=== PATIENT | male | born 1935 | race Caucasian/White ===

== ENCOUNTER 2017-02-27 12:00 | Inpatient (IN) | payer MEDICARE ==
[~2017-02-27] VITALS: Ht 177.8 cm; Wt 50.0 kg
[2017-02-27 12:45] LABS: BASO # 0.2 x10^3/uL (0.0-0.2); BASO % 1 % (0-3); EOS # 0.1 x10^3/uL (0.0-0.7); EOS % 1 % (0-3); HEMATOCRIT 38.1 % (39.0-53.0); HEMOGLOBIN 12.5 g/dL (13.0-17.5); LYMPH # 1.6 x10^3/uL (1.0-4.8); LYMPH % 9 % (24-48); MEAN CORPUSCULAR HEMOGLOBIN 29 pg (25-35); MEAN CORPUSCULAR HGB CONC 33 g/dL (31-37); MEAN CORPUSCULAR VOLUME 89 fL (79-100); MONO # 1.3 x10^3/uL (0.0-1.1); MONO % 8 % (0-9); NEUT # 14.6 x10^3uL (1.8-7.7); NEUT % 82 % (31-73); PLATELET COUNT 248 x10^3/uL (140-400); RED CELL DISTRIBUTION WIDTH 14.7 % (11.5-14.5); WHITE BLOOD COUNT 17.9 x10^3/uL (4.0-11.0)
[2017-02-27 12:56] LABS: ALBUMIN 3.2 g/dL (3.4-5.0); ALBUMIN/GLOBULIN RATIO 0.7 (1.0-1.7); CALCIUM 9.7 mg/dL (8.5-10.1); CREATININE 1.3 mg/dL (0.7-1.3); GFR 52.7; MAGNESIUM 2.2 mg/dL (1.8-2.4); POTASSIUM 4.9 mmol/L (3.5-5.1); TOTAL BILIRUBIN 0.8 mg/dL (0.2-1.0); TOTAL PROTEIN 7.7 g/dL (6.4-8.2)
[2017-02-27 13:04] LABS: BILIRUBIN,URINE NEG (NEG); CLARITY,URINE CLEAR; COLOR,URINE AMBER; GLUCOSE,URINE NEG (NEG)
[2017-02-27 13:05] LABS: BACTERIA,URINE FEW /HPF (0-FEW); HYALINE CASTS, URINE OCC /HPF; NITRITE,URINE NEG (NEG); SQUAMOUS EPITHELIAL CELL,UR FEW /LPF; UROBILINOGEN,URINE 0.2 mg/dL (0.2 mg/dL); WBC,URINE OCC /HPF (0-4)
--- NOTE | 2017-02-27 13:06 | RAD ---
Occasional cough. A single view of the chest was obtained. No prior imaging is available. There are probable background changes of fibrosis. There are changes at the left lung apex likely reflecting pleural-parenchymal scarring. There is a suspect nodule additionally noted in the left upper lobe. Comparison with any old films establishing stability advised. An acute parenchymal infiltrate is not seen. Significant pleural fluid is not present. There is no pneumothorax. There is a probable hiatus hernia. IMPRESSION: Chronic changes. No definite acute finding. Suspect nodule in the left lung. Comparison with old films is advised. Probable hiatus hernia
--- NOTE | 2017-02-27 13:22 | EKG ---
[address] [address] Test Date: 2017-02-27 Test Time: 13:10:57 Pat Name: NIK BERRY Department: Room: Gender: M Guest History Clerk: TANISHA : 1935 Requested By: MIGDALIA MIRAMONTES Order Number: [id number] Reading MD: Matias Heart Measurements Intervals [place] Rate: 83 P: 47 NM: 114 QRS: 14 QRSD: 92 T: 26 QT: 388 QTc: 462 Interpretive Statements SINUS RHYTHM QRS(T) CONTOUR ABNORMALITY CONSIDER ANTEROSEPTAL MYOCARDIAL DAMAGE ST & T ABNORMALITY, CONSIDER INFERIOR ISCHEMIA OR LEFT VENTRICULAR STRAIN T ABNORMALITY IN HIGH LATERAL LEADS ABNORMAL ECG RI6.01 No previous ECG available for comparison Electronically Signed On 03-16-2017 12:00:46 CDT by Matias Heart
[2017-02-27 13:41] LABS: % BANDS 3 % (0-9); % EOS 1 % (0-5); % LYMPHS 10 % (24-48); % MONOS 3 % (0-10); % SEGS 82 % (35-66); PLT ESTIMATE ADEQUATE (ADEQUATE)
[2017-02-27 13:43] LABS: POLYCHROMASIA SLIGHT
[2017-02-27 13:44] LABS: TOXIC GRANULATION SLIGHT
--- NOTE | 2017-02-27 14:30 | PHYS DOC ---
Past History Past Medical History: Hypertension Past Surgical History: Other Alcohol Use: None Drug Use: None Adult General Chief Complaint Chief Complaint: MEDICAL CLEARANCE HPI HPI Patient is a 81 year old male who presents for medical clearance for psychiatric admission. The patient comes from home where he lives alone with his . He has history of Alzheimer's dementia with increased agitation, combativeness, concern for elopment from the house. His is concerned that she is not able to keep him safe. He had recent hip fracture treated nonoperatively with rehab admission & has had more difficulty since returning home last week. Has a productive cough since this morning. Denies fevers, chest pain, shortness of breath, abdominal pain, nausea, vomiting, diarrhea, extremity numbness/weakness. Review of Systems Review of Systems Constitutional: Denies fever or chills HENT: Denies nasal congestion or sore throat Respiratory: Reports cough, denies shortness of breath Cardiovascular: Denies chest pain or edema GI: Denies abdominal pain, nausea, vomiting, or diarrhea : Denies dysuria or hematuria Musculoskeletal: Denies back pain or joint pain Integument: Denies rash or skin lesions Neurologic: Denies headache, focal weakness or sensory changes Psychiatric: reports agitation, combative behavior Allergies Allergies Allergies Coded Allergies Type Severity Reaction Last Updated Verified haloperidol Allergy Unknown 02/27/17 Yes Physical Exam Physical Exam Constitutional: Well developed, well nourished, no acute distress, non-toxic appearance. HENT: Normocephalic, atraumatic, bilateral external ears normal, oropharynx moist, nose normal. Eyes: PERRLA, EOMI, conjunctiva normal, no discharge. Neck: supple, no stridor. Cardiovascular: RRR, no murmurs, no edema. Lungs & Thorax: LCTAB, no wheezing, no respiratory distress. Abdomen: soft, nontender, nondistended. Skin: Warm, dry, no erythema, no rash. Back: No tenderness. Extremities: No tenderness, no edema. Neurologic: Alert and oriented to person & place, no focal deficits noted. Psychologic: cooperative Current Patient Data Vital Signs Vital Signs Date Time Temp Pulse Resp B/P (MAP) Pulse Ox O2 Delivery O2 Flow Rate FiO2 02/27/17 12:00 97.4 89 18 97 Room Air Lab Results Laboratory Tests Test 02/27/17 12:30 02/27/17 12:45 White Blood Count 17.9 x10^3/uL (4.0-11.0) H Red Blood Count 4.30 x10^6/uL (4.30-5.70) Hemoglobin 12.5 g/dL (13.0-17.5) L Hematocrit 38.1 % (39.0-53.0) L Mean Corpuscular Volume 89 fL (79-100) Mean Corpuscular Hemoglobin 29 pg (25-35) Mean Corpuscular Hemoglobin Concent 33 g/dL (31-37) Red Cell Distribution Width 14.7 % (11.5-14.5) H Platelet Count 248 x10^3/uL (140-400) Neutrophils (%) (Auto) 82 % (31-73) H Lymphocytes (%) (Auto) 9 % (24-48) L Monocytes (%) (Auto) 8 % (0-9) Eosinophils (%) (Auto) 1 % (0-3) Basophils (%) (Auto) 1 % (0-3) Neutrophils # (Auto) 14.6 x10^3uL (1.8-7.7) H Lymphocytes # (Auto) 1.6 x10^3/uL (1.0-4.8) Monocytes # (Auto) 1.3 x10^3/uL (0.0-1.1) H Eosinophils # (Auto) 0.1 x10^3/uL (0.0-0.7) Basophils # (Auto) 0.2 x10^3/uL (0.0-0.2) Segmented Neutrophils % 82 % (35-66) H Band Neutrophils % 3 % (0-9) Lymphocytes % 10 % (24-48) L Monocytes % 3 % (0-10) Eosinophils % 1 % (0-5) Toxic Granulation Slight Platelet Estimate Adequate (ADEQUATE) Large Platelets Occ Polychromasia Slight Sodium Level 141 mmol/L (136-145) Potassium Level 4.9 mmol/L (3.5-5.1) Chloride Level 105 mmol/L (98-107) Carbon Dioxide Level 28 mmol/L (21-32) Anion Gap 8 (6-14) Blood Urea Nitrogen 27 mg/dL (8-26) H Creatinine 1.3 mg/dL (0.7-1.3) Estimated GFR (Cockcroft-Gault) 52.7 BUN/Creatinine Ratio 21 (6-20) H Glucose Level 103 mg/dL (70-99) H Calcium Level 9.7 mg/dL (8.5-10.1) Magnesium Level 2.2 mg/dL (1.8-2.4) Total Bilirubin 0.8 mg/dL (0.2-1.0) Aspartate Amino Transferase (AST) 26 U/L (15-37) Alanine Aminotransferase (ALT) 28 U/L (16-63) Alkaline Phosphatase 183 U/L (46-116) H Total Protein 7.7 g/dL (6.4-8.2) Albumin 3.2 g/dL (3.4-5.0) L Albumin/Globulin Ratio 0.7 (1.0-1.7) L Urine Collection Type Unknown Urine Color Xena Urine Clarity Clear Urine pH 5.0 Urine Specific [place] 1.025 Urine Protein Trace (NEG-TRACE) Urine Glucose (UA) Neg mg/dL (NEG) Urine Ketones (Stick) 15 mg/dL (NEG) Urine Blood Trace (NEG) Urine Nitrite Neg (NEG) Urine Bilirubin Neg (NEG) Urine Urobilinogen Dipstick 0.2 mg/dL (0.2 mg/dL) Urine Leukocyte Esterase Neg (NEG) Urine RBC 1-2 /HPF (0-2) Urine WBC Occ /HPF (0-4) Urine Squamous Epithelial Cells Few /LPF Urine Bacteria Few /HPF (0-FEW) Urine Hyaline Casts Occ /HPF EKG EKG interprted by me: NSR rate 83, no acute ST/T wave changes, normal intervals, no ectopy.[] Radiology/Procedures Radiology/Procedures [] Course & Med Decision Making Course & Med Decision Making Pertinent Labs and Imaging studies reviewed. (See chart for details) The patient presents for medical clearance for psych admit. No focal findings on exam. CXR negative for infiltrate. WBC elevated at 17.9. Patient has history of chronic leukocytosis per family, has seen ID, apparently they thought partially related to recurrent gout. Consulted with Dr. Cardenas of psychiatry who states okay for patient to be transferred to their unit as long as okay with Dr. Park. I also discussed with her & she felt comfortable following along but okay to go to psych unit. Patient to be transferred to [facility] in stable condition. [] Dragon Disclaimer Dragon Disclaimer This chart was dictated in whole or in part using Voice Recognition software in a busy, high-work load, and often noisy Emergency Department environment. It may contain unintended and wholly unrecognized errors or omissions. Departure Departure: Impression: Primary Impression: Dementia Additional Impression: Leukocytosis Disposition: ADMITTED INPATIENT Condition: STABLE Referrals: JAZMINE JAMES MD (PCP) Problem Qualifiers MIGDALIA MIRAMONTES MD Feb 27, 2017 14:30
--- NOTE | 2017-02-27 15:20 | NUR ---
Patient arrived on unit from ED on stretcher via EMS accompanied by EMS adn ED personnel. He was transferred to bed from stretcher, initial assessment and VS obtained. Patient appears malnourished and disheveled. Attempted to orient to unit but he is oriented to self only. Patient has multiple small (<5mm) skin tears to extremities in various stages of healing. He also has a rash to his groin and buttocks. Calazine cream applied to rash. Patient transferred into wheelchair and assisted to day room. Will monitor for behaviors.
[2017-02-27 16:02] VITALS: BP 139/66
[2017-02-27] MEDS ORDERED: LEVO500T8 PO (16:12)
[2017-02-27] MEDS ORDERED: ASPI-630 PO (16:12)
[2017-02-27] MEDS ORDERED: MELA3TAB2 PO (16:12)
[2017-02-27] MEDS ORDERED: MIRT15TA3 PO (16:12)
[2017-02-27] MEDS ORDERED: PRED-220 PO (16:12)
[2017-02-27] MEDS ORDERED: ACET325T9 PO (16:12)
[2017-02-27] MEDS ORDERED: TRAM50TA PO (16:12)
[2017-02-27] MEDS ORDERED: VITA1TAB19 PO (16:12)
[2017-02-27] MEDS ORDERED: ALLO100T PO (16:12)
[2017-02-27] MEDS ORDERED: OLAN5TAB9 PO (16:12)
[2017-02-27] MEDS ORDERED: MECL25TA3 PO (16:12)
[2017-02-27] MEDS ORDERED: FAMO20TA5 PO (16:12)
[2017-02-27] MEDS ORDERED: HYDR-2867 PO (16:12)
[2017-02-27] MEDS ORDERED: FERR-26 PO (16:12)
[2017-02-27] MEDS ORDERED: IPRA3AMP NEB (16:12)
[2017-02-27] MEDS ORDERED: METHYL SALICYLATE/MENTHOL TOPICAL OINTMENT 29GM TUBE. TP PRN (16:30)
[2017-02-27] MEDS ORDERED: MAG HYDROX/AL HYDROX/SIMETH 30 ML ORAL.SUSP PO PRN (16:30)
[2017-02-27] MEDS ORDERED: MECLIZINE 12.5 MG TABLET. PO PRN (16:45)
--- NOTE | 2017-02-27 17:20 | NUR ---
Patient has grown more agitated since admission and is refusing to eat. Per ASSISTANT PROFESSOR's, he is threatening to throw his tray. He was placed in the hallway. I offered him a boost, he took one sip after much encouragement then tried to throw the boost away, stating that was all he wanted. Patient continued to grow more agitated, transferred him into bed where he curled up into position and calmed down. Will continue to monitor for behaviours.
[2017-02-27] MEDS ORDERED: Influenza vaccine per PROTOCOL. MC ONE (18:15)
[2017-02-27] MEDS: MIRTAZAPINE 15 MG TABLET PO SCH (19:48)
[2017-02-27] MEDS: OLANZapine 5 MG TABLET PO SCH (19:48)
--- NOTE | 2017-02-27 19:55 | PDOC ---
Exam Hector Demential Exam: Hector Note: Please also refer to the separate dictated note~for this date of service dictated separately.~Patient seen individually. Discussed the patient with Nursing staff reviewed the chart.~Reviewed interim history and current functioning. Reviewed vital signs,~Labs/ Radiology~and current medications noted below. Continue current treatment with the changes noted in the dictated addendum note Assessment: Vital Signs: Vital Signs Date Time Temp Pulse Resp B/P (MAP) Pulse Ox O2 Delivery O2 Flow Rate FiO2 02/27/17 16:02 98.8 92 20 139/66 (90) 94 02/27/17 14:49 Room Air I&O Intake and Output 02/28/17 06:59 Intake Total 0 ml Balance 0 ml Intake Oral 0 ml Labs: Laboratory Tests Test 02/27/17 12:30 02/27/17 12:45 White Blood Count 17.9 x10^3/uL (4.0-11.0) H Red Blood Count 4.30 x10^6/uL (4.30-5.70) Hemoglobin 12.5 g/dL (13.0-17.5) L Hematocrit 38.1 % (39.0-53.0) L Mean Corpuscular Volume 89 fL (79-100) Mean Corpuscular Hemoglobin 29 pg (25-35) Mean Corpuscular Hemoglobin Concent 33 g/dL (31-37) Red Cell Distribution Width 14.7 % (11.5-14.5) H Platelet Count 248 x10^3/uL (140-400) Neutrophils (%) (Auto) 82 % (31-73) H Lymphocytes (%) (Auto) 9 % (24-48) L Monocytes (%) (Auto) 8 % (0-9) Eosinophils (%) (Auto) 1 % (0-3) Basophils (%) (Auto) 1 % (0-3) Neutrophils # (Auto) 14.6 x10^3uL (1.8-7.7) H Lymphocytes # (Auto) 1.6 x10^3/uL (1.0-4.8) Monocytes # (Auto) 1.3 x10^3/uL (0.0-1.1) H Eosinophils # (Auto) 0.1 x10^3/uL (0.0-0.7) Basophils # (Auto) 0.2 x10^3/uL (0.0-0.2) Segmented Neutrophils % 82 % (35-66) H Band Neutrophils % 3 % (0-9) Lymphocytes % 10 % (24-48) L Monocytes % 3 % (0-10) Eosinophils % 1 % (0-5) Toxic Granulation Slight Platelet Estimate Adequate (ADEQUATE) Large Platelets Occ Polychromasia Slight Sodium Level 141 mmol/L (136-145) Potassium Level 4.9 mmol/L (3.5-5.1) Chloride Level 105 mmol/L (98-107) Carbon Dioxide Level 28 mmol/L (21-32) Anion Gap 8 (6-14) Blood Urea Nitrogen 27 mg/dL (8-26) H Creatinine 1.3 mg/dL (0.7-1.3) Estimated GFR (Cockcroft-Gault) 52.7 BUN/Creatinine Ratio 21 (6-20) H Glucose Level 103 mg/dL (70-99) H Calcium Level 9.7 mg/dL (8.5-10.1) Magnesium Level 2.2 mg/dL (1.8-2.4) Total Bilirubin 0.8 mg/dL (0.2-1.0) Aspartate Amino Transferase (AST) 26 U/L (15-37) Alanine Aminotransferase (ALT) 28 U/L (16-63) Alkaline Phosphatase 183 U/L (46-116) H Total Protein 7.7 g/dL (6.4-8.2) Albumin 3.2 g/dL (3.4-5.0) L Albumin/Globulin Ratio 0.7 (1.0-1.7) L Urine Collection Type Unknown Urine Color Xena Urine Clarity Clear Urine pH 5.0 Urine Specific [place] 1.025 Urine Protein Trace (NEG-TRACE) Urine Glucose (UA) Neg mg/dL (NEG) Urine Ketones (Stick) 15 mg/dL (NEG) Urine Blood Trace (NEG) Urine Nitrite Neg (NEG) Urine Bilirubin Neg (NEG) Urine Urobilinogen Dipstick 0.2 mg/dL (0.2 mg/dL) Urine Leukocyte Esterase Neg (NEG) Urine RBC 1-2 /HPF (0-2) Urine WBC Occ /HPF (0-4) Urine Squamous Epithelial Cells Few /LPF Urine Bacteria Few /HPF (0-FEW) Urine Hyaline Casts Occ /HPF Current Medications: Meds: Current Medications Multi-Ingredient Ointment (Analgesic [place]) 1 delvis PRN QID PRN TP MUSCLE PAIN; Start 02/27/17 at 16:30 Al Hydroxide/Mg Hydroxide (Mylanta Plus Xs) 15 ml PRN AFTMEALHC PRN PO DYSPEPSIA; Start 02/27/17 at 16:30 Magnesium Hydroxide (Milk Of Magnesia) 2,400 mg PRN QHS PRN PO CONSTIPATION; Start 02/27/17 at 16:30 Mirtazapine (Remeron) 15 mg QHS PO Last administered on 02/27/17t 19:48; Start 02/27/17 at 21:00 Olanzapine (ZyPREXA) 5 mg BID PO Last administered on 02/27/17t 19:48; Start at 21:00 Meclizine HCl (Antivert) 25 mg PRN TID PRN PO NAUSEA/ VOMITTING; Start at 16:45 Melatonin 3 mg PRN QHS PRN PO INSOMNIA; Start 02/27/17 at 16:45 Info (FLU VACCINE per PROTOCOL) 1 ea 1X ONCE MC ; Start 02/27/17 at 18:15; Stop 02/27/17 at 18:16; Status UNV Influenza Virus Vaccine Quadrival (Fluarix Quad [id number] Syringe) 0.5 ml ONCE ONCE VAX IM ; Start 02/28/17 at 12:00; Stop 02/28/17 at 12:01 Olanzapine (ZyPREXA ZYDIS) 2.5 mg PRN Q2HR PRN PO PSYCHOSIS; Start 02/27/17 at 19:00 Active Scripts Active Reported Tramadol Hcl (Tramadol HCl) 50 Mg Tablet 50 Mg PO PRN Q6HRS PRN Melatonin 3 Mg Tablet 3 Mg PO PRN QHS PRN Meclizine Hcl 25 Mg Tablet 25 Mg PO PRN TID PRN Hydralazine Hcl 10 Mg Tablet 10 Mg PO PRN TID PRN Duoneb 0.5-3(2.5) Mg/3 Ml (Albuterol/Ipratropium) 3 Ml Ampul.neb 3 Ml NEB PRN Q4HRS PRN Tylenol (Acetaminophen) 325 Mg Tablet 325 Mg PO PRN Q6HRS PRN B Complex (Vitamin B Complex) 1 Each Tablet 1 Each PO DAILYWLUN Prednisone 10 Mg Tablet 10 Mg PO DAILY Olanzapine 5 Mg Tablet 5 Mg PO BID Mirtazapine 15 Mg Tablet 15 Mg PO QHS Levofloxacin 500 Mg Tablet 250 Mg PO DAILY Ferrous Sulfate 325 Mg Tablet 325 Mg PO DAILYWLUN Famotidine 20 Mg Tablet 20 Mg PO BID Aspirin 81 Mg Tab.chew 81 Mg PO DAILY Allopurinol 100 Mg Tablet 100 Mg PO DAILY Diagnosis: Problems: (1) Dementia AARON DUNN MD Feb 27, 2017 19:55
--- NOTE | 2017-02-27 20:30 | NUR ---
Behavior Intervention Response and Plan: BIRP Note: Behavior: Assumed Care of patient, patient located in Patient Room at shift change. Patient exhibited the following behavior Drowsy, Withdrawn, Cooperative. Brief assessment on rounds of vital signs, medication needs, lab studies, and pain. Treatment plan problems . Intervention: Patient assessed and the following interventions initiated safety checks 15 Minute Checks Cognitive Assessment , Head to toe Assessment , Medications. Response: After interactions and interventions patient responded in the following manner, Drowsy , Sleeping ,Disorganized. Continue to assess behaviors and condition will continue to monitor throughout the shift as needed. Patient educated on ADL's, and hand hygiene. 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 Continue to assess patient for changes in above assessment. Monitor for medication needs, pain, and safety concerns. Hourly rounding performed to ensure safe environment.
--- NOTE | 2017-02-27 23:33 | HP ---
ADMIT DATE: 02/27/2017 PSYCHIATRIC ADMISSION HISTORY/EVALUATION IDENTIFYING DATA: The patient is an 81-year-old male, who normally lives at Home in [place] and was referred to us by his primary care physician, Dr. Nitish Langford on account of worsening confusion, agitation, aggression, being exit seeking, combative, having delusions and hallucinations. Reportedly, he is oriented just to himself. The daughter has been concerned about her safety at home, given his marked increase in agitation and mood lability. He has failed outpatient psychiatric interventions, thus resulting in this referral. CHIEF COMPLAINT: "No, no, no." The patient is in his wheelchair, extremely labile, agitated, anxious, paranoid, irritable, constantly moving his wheelchair, unable to sit still. HISTORY OF PRESENT ILLNESS: The patient has a history of dementia, Alzheimer's vascular type. He has been residing at home with his daughter, getting increasingly anxious, irritable, combative, psychotic. Behaviors have been dangerous, labile, unmanageable, having failed outpatient psychiatric interventions, referred for inpatient stabilization. No clear history of bipolar disorder, suicidal or homicidal ideation. PAST PSYCHIATRIC HISTORY: As above. MEDICAL HISTORY: Gout, hypertension, impaired ambulation in a wheelchair, coronary artery disease, GERD, status post right hip fracture 2 weeks ago. The patient is nonweightbearing to right lower extremity, nonsurgical candidate, has been in rehab. ALLERGIES: HALDOL causes over sedation for days. CODE STATUS: DNR. DIET: Regular, he takes his medications whole. UA 02/27 was negative. CURRENT PSYCHOTROPICS: Remeron 15 mg at bedtime; melatonin 3 mg at bedtime; Zyprexa 2.5 q.2 hours p.r.n. psychosis and agitation, max 7.5 in 24 hours, scheduled Zyprexa 5 mg b.i.d. FAMILY HISTORY: Noncontributory. SOCIAL HISTORY: No history of alcohol, drug abuse, physical, sexual or elder abuse. Not known to be a perpetrator. MENTAL STATUS EXAMINATION: The patient is oriented to himself. He is anxious, restless, quite labile in his mood, seated in the wheelchair, constantly moving. Insight, judgment, recent and remote memory, attention, concentration, fund of knowledge poor, consistent with his diagnosis. REACTION TO HOSPITALIZATION: The patient oblivious of this. ASSETS: Supportive daughter. 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 Rest of diagnoses as above. PLAN: Admit to the geropsychiatry unit at [facility]. I will see the patient daily individually. From a psychiatric standpoint, medical followup per Dr. Park/Dr. Mckeon. Observe the patient's baseline. Continue current psychotropics and gradually make adjustments in the psychotropics as clinically indicated. Consider BuSpar for anxiety, Zoloft as an antidepressant, Depakote as a mood stabilizer, but we will make this decision after baseline assessment. AARON DUNN MD DR: IDANIA/herlinda JOB#: [id number] / [id number]
[2017-02-28 05:10] LABS: T3 TOTAL 91 ng/dL (71-180); THYROXINE 7.8 ug/dL (4.5-12.0)
[2017-02-28 05:52] VITALS: BP 120/69
[2017-02-28 06:09] LABS: HEMOGLOBIN A1C 5.2 % (4.8-5.6)
[2017-02-28] MEDS ORDERED: hydrALAZINE 10 MG TABLET PO PRN (07:15)
[2017-02-28] MEDS ORDERED: traMADol 50 MG TABLET PO PRN (07:15)
[2017-02-28] MEDS ORDERED: ACETAMINOPHEN 325 MG TABLET PO PRN (07:15)
[2017-02-28] MEDS ORDERED: levoFLOXacin 250 MG TABLET PO SCH (09:00)
--- NOTE | 2017-02-28 09:00 | NUR ---
SW reviewed Pt. insurance upon admit. Face sheet, csnap and intake state Pt. has Medicare A, B and no part C. No secondary. No auth required.
[2017-02-28] MEDS: OLANZapine 5 MG TABLET PO SCH (09:59)
[2017-02-28] MEDS: predniSONE 10 MG TABLET PO SCH (10:00)
[2017-02-28] MEDS: ALLOPURINOL 100 MG TABLET. PO SCH (10:00)
[2017-02-28] MEDS: ASPIRIN 81 MG TAB.CHEW PO SCH (10:00)
[2017-02-28] MEDS: FAMOTIDINE 20 MG TABLET PO SCH ×2 (10:00→19:43)
--- NOTE | 2017-02-28 10:15 | NUR ---
Behavior Intervention Response and Plan: BIRP Note: Behavior: Assumed Care of patient, patient located in Day Room at shift change. Patient exhibited the following behavior Wandering, Restless, Disorganized. Brief assessment on rounds of vital signs, medication needs, lab studies, and pain. Treatment plan problems 1 & 2. Intervention: Patient assessed and the following interventions initiated safety checks 15 Minute Checks Cognitive Assessment , Head to toe Assessment , Medications. Response: After interactions and interventions patient responded in the following manner, Calm , Appropriate ,Compliant. Continue to assess behaviors and condition will continue to monitor throughout the shift as needed. Patient educated on ADL's, and hand hygiene. 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 Continue to assess patient for changes in above assessment. Monitor for medication needs, pain, and safety concerns. Hourly rounding performed to ensure safe environment.
--- NOTE | 2017-02-28 10:15 | NUR ---
THERAPEUTIC RECREATION GROUP NOTE TITLE :Funny Videos and Jokes ACTIVITY : Humor GOAL : Decrease stress, elevate mood DURATION : 75 Minutes RESPONSE : Minimal participation. Pt. was wandering around the unit, in and out of the group. He stayed and listened to a few jokes and contributed a little to the group discussion.
--- NOTE | 2017-02-28 10:23 | NUR ---
Group Note [facility] Orientation Group Start Time: 9:05am End Time: 9:35am Problem: Anxiety Purpose: Reduction of Stress, Orientation, Reduction of Anxiety, Socializing Level of Participation: Absent. Behaviors or Symptoms Observed: Interventions: Clarification Response: Plan: Group Participation Additional Comments:
--- NOTE | 2017-02-28 11:30 | NUR ---
THERAPEUTIC RECREATION GROUP NOTE TITLE :Movement to Music: Flexibility ACTIVITY : Movement/ Exercise GOAL : Increase morale, attention, flexibility. Decrease stress/anxiety. DURATION : 30 Minutes RESPONSE : No participation
[2017-02-28] MEDS ORDERED: FLU VACC QS2017-18 (36MOS+)/PF 0.5 ML SYRINGE. VAX IM ONE (12:00)
[2017-02-28] MEDS: VITAMIN B COMPLEX CAPSULE. PO SCH (12:16)
[2017-02-28] MEDS: FERROUS SULFATE 325 MG TABLET. PO SCH (12:16)
--- NOTE | 2017-02-28 14:10 | NUR ---
THERAPEUTIC RECREATION GROUP NOTE TITLE :What can we do ALONE, needs NO SUPPLIES, that's FUN, and RELAXING? ACTIVITY : Leisure Awareness GOAL : Increase knowledge of leisure activities DURATION : 60 Minutes RESPONSE : Full participation. Pt. joined the group about half way through but contributed to the conversation and needed no prompting to stay on task. He was quiet and able to follow directions well.
[2017-02-28 14:22] LABS: THYROID STIM HORMONE (TSH) 7.28 uIU/mL (0.358-3.740)
[2017-02-28 16:57] VITALS: BP 154/75
--- NOTE | 2017-02-28 18:42 | HP ---
ADMIT DATE: 02/27/2017 REASON FOR ADMISSION TO THE SENIOR BEHAVIORAL UNIT: This is an 81-year-old male who has been living with his daughter at home. He has not been doing well since he fractured his right hip and did go to rehab, but has not been doing well since coming back home. He has been increasingly confused, anxious, irritable, and trying to live combative with delusions and hallucinations recently. Recently, he has been treated for urinary tract infection. PAST MEDICAL HISTORY: Fractured right hip, hypertension, gout, and Iron deficiency anemia. ALLERGIES: HALDOL. MEDICATIONS: Reviewed and are available on the MAR. SOCIAL HISTORY: The patient was asked what he did for a living. He said nothing. I asked him he ever worked; he said never. Denies smoking or drinking . He states he is . He and are living. REVIEW OF SYSTEMS: The patient states nothing is wrong. OBJECTIVE: VITAL SIGNS: Blood pressure 120/69, pulse 81, respirations 14, pulse ox 95% on room air, temperature 97.9, height is 70 inches, weight is 110 pounds, and BMI 15.8. GENERAL: Very unkempt and disheveled elderly male, in no acute distress. He is quite jovial, but basically will not answer any questions. HEENT: His eyes are clear. Nose is patent. His throat was clear. His own dentition is terrible and dire need of oral care. NECK: Supple. SKIN: Leathered. Right ear has fairly extensive keratoses on helix of the ear. LUNGS: Clear. CARDIOVASCULAR: Regular rhythm and rate. ABDOMEN: Soft and nontender. EXTREMITIES: Without edema. MUSCULOSKELETAL: Very poor muscle wasting emaciated appearance. NEUROLOGIC: Cranial nerves, this would not cooperate. No gross tremors. He has a significant fall risk. LABORATORY DATA: White blood cell count is 17.9, hemoglobin 12.5, hematocrit 38.1, and iron 25. Iron saturation is 10. TSH is 7.280. Vitamin D is 18. He does have hyperlipidemia, B12 is 650. Urinalysis is negative. Overall mental state is in good spirits, but somewhat confused. He could not answer any questions regarding, although he did say he grew up in [place], but could not tell me what he did for living. The patient said never whenever I asked him something. ASSESSMENT: 1. An 81-year-old status post right hip fracture with decline. 2. Neurocognitive impairment. 3. Significant fall risk. 4. 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 5. Iron deficiency. 6. Vitamin D deficiency. 7. Hypercholesterolemia. 8. Moderate protein-calorie malnutrition. PLAN: We will initiate supplements. He is nonweightbearing on the right leg and will continue to monitor. BURAK TOBIAS DO DR: DAVID/herlinda JOB#: [id number] / [id number]
[2017-02-28] MEDS: MIRTAZAPINE 15 MG TABLET PO SCH (19:43)
[2017-02-28] MEDS: OLANZapine 2.5 MG TABLET PO SCH (19:46)
--- NOTE | 2017-02-28 20:00 | NUR ---
Behavior Intervention Response and Plan: BIRP Note: Behavior: Assumed Care of patient, patient located in Day Room at shift change. Patient exhibited the following behavior Calm, Disorganized, Withdrawn. Brief assessment on rounds of vital signs, medication needs, lab studies, and pain. Treatment plan problems . Intervention: Patient assessed and the following interventions initiated safety checks 15 Minute Checks Cognitive Assessment , Head to toe Assessment , Medications. Response: After interactions and interventions patient responded in the following manner, Cooperative , Compliant ,Cooperative. Continue to assess behaviors and condition will continue to monitor throughout the shift as needed. Patient educated on ADL's, and hand hygiene. 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 Continue to assess patient for changes in above assessment. Monitor for medication needs, pain, and safety concerns. Hourly rounding performed to ensure safe environment.
--- NOTE | 2017-02-28 21:22 | PDOC ---
Exam Hector Demential Exam: Hector Note: Please also refer to the separate dictated note~for this date of service dictated separately.~Patient seen individually. Discussed the patient with Nursing staff reviewed the chart.~Reviewed interim history and current functioning. Reviewed vital signs,~Labs/ Radiology~and current medications noted below. Continue current treatment with the changes noted in the dictated addendum note Assessment: Vital Signs: Vital Signs Date Time Temp Pulse Resp B/P (MAP) Pulse Ox O2 Delivery O2 Flow Rate FiO2 02/28/17 16:57 97.9 80 18 154/75 (101) 94 02/28/17 05:52 Room Air I&O Intake and Output 03/01/17 07:00 Intake Total 920 ml Balance 920 ml Intake Oral 920 ml Current Medications: Meds: Current Medications Multi-Ingredient Ointment (Analgesic [place]) 1 delvis PRN QID PRN TP MUSCLE PAIN; Start 02/27/17 at 16:30 Al Hydroxide/Mg Hydroxide (Mylanta Plus Xs) 15 ml PRN AFTMEALHC PRN PO DYSPEPSIA; Start 02/27/17 at 16:30 Magnesium Hydroxide (Milk Of Magnesia) 2,400 mg PRN QHS PRN PO CONSTIPATION; Start 02/27/17 at 16:30 Mirtazapine (Remeron) 15 mg QHS PO Last administered on 02/28/17 19:43; Start 02/27/17 at 21:00 Olanzapine (ZyPREXA) 5 mg BID PO Last administered on 02/28/17 09:59; Start at 21:00; Stop 02/28/17 at 19:18; Status DC Meclizine HCl (Antivert) 25 mg PRN TID PRN PO NAUSEA/ VOMITTING; Start at 16:45 Melatonin 3 mg PRN QHS PRN PO INSOMNIA; Start 02/27/17 at 16:45 Info (FLU VACCINE per PROTOCOL) 1 ea 1X ONCE MC ; Start 02/27/17 at 18:15; Stop 02/27/17 at 18:16; Status UNV Influenza Virus Vaccine Quadrival (Fluarix Quad 6800-4622 Syringe) 0.5 ml ONCE ONCE VAX IM Last administered on 02/28/17 12:19; Start 02/28/17 at 12:00; Stop 02/28/17 at 12:01; Status DC Olanzapine (ZyPREXA ZYDIS) 2.5 mg PRN Q2HR PRN PO PSYCHOSIS; Start 02/27/17 at 19:00 Acetaminophen (Tylenol) 325 mg PRN Q6HRS PRN PO PAIN / TEMP; Start 02/28/17 at 07:15 Allopurinol (Zyloprim) 100 mg DAILY PO Last administered on 02/28/17 10:00; Start 02/28/17 at 09:00 Aspirin (Children'S Aspirin) 81 mg DAILY PO Last administered on 02/28/17 10: 00; Start 02/28/17 at 09:00 Famotidine (Pepcid) 20 mg BID PO Last administered on 02/28/17 19:43; Start at 09:00 Ferrous Sulfate (Feosol) 325 mg DAILYWLUN PO Last administered on 02/28/17 12: 16; Start 02/28/17 at 12:00 Hydralazine HCl (Apresoline) 10 mg PRN TID PRN PO HYPERTENSION, SEE COMMENTS; Start 02/28/17 at 07:15 Albuterol/ Ipratropium (Duoneb) 3 ml PRN Q4HRS PRN NEB SHORTNESS OF BREATH; Start 02/28/17 at 07:15 Levofloxacin (Levaquin) 250 mg DAILY PO Last administered on 02/28/17 09:59; Start 02/28/17 at 09:00; Stop 02/28/17 at 13:16; Status DC Prednisone (Prednisone) 10 mg DAILY PO Last administered on 02/28/17 10:00; Start 02/28/17 at 09:00 Tramadol HCl (Ultram) 50 mg PRN Q6HRS PRN PO PAIN; Start 02/28/17 at 07:15 Vitamin B Complex 1 cap DAILYWLUN PO Last administered on 02/28/17 12:16; Start 02/28/17 at 12:00 Olanzapine (ZyPREXA) 2.5 mg BID PO Last administered on 02/28/17 19:46; Start 02/28/17 at 21:00 Sertraline HCl (Zoloft) 25 mg DAILY PO ; Start 03/01/17 at 09:00 Active Scripts Active Reported Tramadol Hcl (Tramadol HCl) 50 Mg Tablet 50 Mg PO PRN Q6HRS PRN Melatonin 3 Mg Tablet 3 Mg PO PRN QHS PRN Meclizine Hcl 25 Mg Tablet 25 Mg PO PRN TID PRN Hydralazine Hcl 10 Mg Tablet 10 Mg PO PRN TID PRN Duoneb 0.5-3(2.5) Mg/3 Ml (Albuterol/Ipratropium) 3 Ml Ampul.neb 3 Ml NEB PRN Q4HRS PRN Tylenol (Acetaminophen) 325 Mg Tablet 325 Mg PO PRN Q6HRS PRN B Complex (Vitamin B Complex) 1 Each Tablet 1 Each PO DAILYWLUN Prednisone 10 Mg Tablet 10 Mg PO DAILY Olanzapine 5 Mg Tablet 5 Mg PO BID Mirtazapine 15 Mg Tablet 15 Mg PO QHS Levofloxacin 500 Mg Tablet 250 Mg PO DAILY Ferrous Sulfate 325 Mg Tablet 325 Mg PO DAILYWLUN Famotidine 20 Mg Tablet 20 Mg PO BID Aspirin 81 Mg Tab.chew 81 Mg PO DAILY Allopurinol 100 Mg Tablet 100 Mg PO DAILY Diagnosis: Problems: (1) Dementia (2) Anxiety disorder (3) Dementia, vascular, with depression (4) Dementia, vascular, with delusions (5) Dementia in Alzheimer's disease with depression (6) Dementia in Alzheimer's disease with delusions (7) Impulse control disorder AARON DUNN MD Feb 28, 2017 21:22
[2017-03-01 06:07] VITALS: BP 133/71
--- NOTE | 2017-03-01 08:00 | NUR ---
WEEKLY THERAPEUTIC RECREATION NOTE Date of Admission: 02/27/2017 Date of AT Assessment:INCOMPLETE Goal aimed: TBD Initial goal:TBD Weekly progress towards goal: NA Group participation level: Minimal Behaviors observed: yelling at times Plan: Meet/ assess Pt.
[2017-03-01] MEDS: ASPIRIN 81 MG TAB.CHEW PO SCH (08:18)
[2017-03-01] MEDS: predniSONE 10 MG TABLET PO SCH (08:18)
[2017-03-01] MEDS: OLANZapine 2.5 MG TABLET PO SCH ×2 (08:18→20:01)
[2017-03-01] MEDS: FERROUS SULFATE 325 MG TABLET. PO SCH (08:18)
[2017-03-01] MEDS: FAMOTIDINE 20 MG TABLET PO SCH ×2 (08:18→20:01)
[2017-03-01] MEDS: ALLOPURINOL 100 MG TABLET. PO SCH (08:18)
[2017-03-01] MEDS: VITAMIN B COMPLEX CAPSULE. PO SCH (08:18)
[2017-03-01] MEDS: SERTRALINE 25 MG TABLET. PO SCH (08:19)
--- NOTE | 2017-03-01 08:30 | NUR ---
Psychosocial Assessment completed w/Pt's dtr/dpadelaide, Scott. Pt. was born and raised in [place], [place] w/2 brothers and 1 sister. No significant childhood trauma noted. Pt. completed HS and joined the [employer] for 2 years. Pt. served in [employer] and did see combat, however, Pt's dtr stated Pt. does not actively receive VA services. Pt. current of 50years named Amee and they had 4 children named Scott, Jase, and Opal (). 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 Pt. has no family history of Dementia, MHI, and no personal history of SI/HI or alcohol/drug use. Pt. currently resides w/his and dtr is very active in his care. Pt. fell and broke his wrist May 2016 and never fully recovered from the surgery. Pt. has since been diagnosed w/Dementia and memory has declined. Family has made arrangements for Pt. to transition to [facility] in [place] and then to move to reside w/his son in [place]. Pt's son's is a stay at home mom/ and will be able to care for Pt's needs. GOALS: pt. would like to return home. Family's goal is for Pt. to transition to group home. 1. Family support 2. Strong marriage
--- NOTE | 2017-03-01 10:10 | NUR ---
Behavior Intervention Response and Plan: BIRP Note: Behavior: Assumed Care of patient, patient located in Day Room at shift change. Patient exhibited the following behavior Wandering, Restless, Disorganized. Brief assessment on rounds of vital signs, medication needs, lab studies, and pain. Treatment plan problems 1 & 2. Intervention: Patient assessed and the following interventions initiated safety checks 15 Minute Checks Cognitive Assessment , Head to toe Assessment , Medications. Response: After interactions and interventions patient responded in the following manner, Calm , Appropriate ,Compliant. Continue to assess behaviors and condition will continue to monitor throughout the shift as needed. Patient educated on ADL's, and hand hygiene. 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 Continue to assess patient for changes in above assessment. Monitor for medication needs, pain, and safety concerns. Hourly rounding performed to ensure safe environment.
--- NOTE | 2017-03-01 10:45 | NUR ---
THERAPEUTIC RECREATION GROUP NOTE TITLE :Balloon/Pool Noodle ACTIVITY : Activities and Games GOAL : Increase alertness, focus, morale, decrease stress, team building, positive communication DURATION : 30 Minutes RESPONSE : Moderate participation. Pt. sat close to another patient who was linking her arms with him and touching his bracelets. Pt. was calm, patient with her the entire time. He bumped the balloon most of the time towards the beginning; however, he participated less and less as the session continued.
--- NOTE | 2017-03-01 10:45 | NUR ---
THERAPEUTIC RECREATION GROUP NOTE TITLE :Balloon/Pool Noodle ACTIVITY : Activities and Games GOAL : Increase alertness, focus, morale, decrease stress, team building, positive communication DURATION : 30 Minutes RESPONSE : No participation Addendum: 03/02/17 at 0947 by LENO AZUL ACT This note belongs to a different patient.
--- NOTE | 2017-03-01 11:15 | NUR ---
THERAPEUTIC RECREATION GROUP NOTE TITLE :Movement to Music: Strength ACTIVITY : Movement/ Exercise GOAL : Increase morale, attention, flexibility. Decrease stress/anxiety. DURATION : 45 Minutes RESPONSE : Minimal participation. Pt. held the pool noodle and did his own moves; however, he did not follow along with most of the moves.
--- NOTE | 2017-03-01 13:55 | EKG ---
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
--- NOTE | 2017-03-01 14:20 | NUR ---
THERAPEUTIC RECREATION GROUP NOTE TITLE :Fall Festival: Apple Cider, Pumpkin Bread and Tin Can Painting ACTIVITY : Social Events/ Holidays GOAL : Facilitate sense of belonging and well-being, elevate mood, increase socialization. Incorporate traditions. DURATION : 80 Minutes RESPONSE : Minimal participation. Pt. was with the group the entire time; however, enjoyed the treats quickly and did not want to paint. He wanted to leave but appeared to not understand how the wheelchair worked. He needed assistance to leave the room. He was calm the entire time.
[2017-03-01] MEDS: MIRTAZAPINE 15 MG TABLET PO SCH (20:01)
--- NOTE | 2017-03-01 21:18 | PDOC ---
Exam Hector Demential Exam: Hector Note: Please also refer to the separate dictated note~for this date of service dictated separately.~Patient seen individually. Discussed the patient with Nursing staff reviewed the chart.~Reviewed interim history and current functioning. Reviewed vital signs,~Labs/ Radiology~and current medications noted below. Continue current treatment with the changes noted in the dictated addendum note Assessment: Vital Signs: Vital Signs Date Time Temp Pulse Resp B/P (MAP) Pulse Ox O2 Delivery O2 Flow Rate FiO2 03/01/17 16:37 98.2 20 03/01/17 06:07 77 133/71 (91) 96 02/28/17 05:52 Room Air I&O Intake and Output 03/02/17 07:00 Intake Total 1140 ml Balance 1140 ml Intake Oral 1140 ml Current Medications: Meds: Current Medications Multi-Ingredient Ointment (Analgesic [place]) 1 delvis PRN QID PRN TP MUSCLE PAIN; Start 02/27/17 at 16:30 Al Hydroxide/Mg Hydroxide (Mylanta Plus Xs) 15 ml PRN AFTMEALHC PRN PO DYSPEPSIA; Start 02/27/17 at 16:30 Magnesium Hydroxide (Milk Of Magnesia) 2,400 mg PRN QHS PRN PO CONSTIPATION; Start 02/27/17 at 16:30 Mirtazapine (Remeron) 15 mg QHS PO Last administered on 03/01/17 20:01; Start 02/27/17 at 21:00 Olanzapine (ZyPREXA) 5 mg BID PO Last administered on 02/28/17 09:59; Start at 21:00; Stop 02/28/17 at 19:18; Status DC Meclizine HCl (Antivert) 25 mg PRN TID PRN PO NAUSEA/ VOMITTING; Start at 16:45 Melatonin 3 mg PRN QHS PRN PO INSOMNIA; Start 02/27/17 at 16:45 Info (FLU VACCINE per PROTOCOL) 1 ea 1X ONCE MC ; Start 02/27/17 at 18:15; Stop 02/27/17 at 18:16; Status UNV Influenza Virus Vaccine Quadrival (Fluarix Quad [id number] Syringe) 0.5 ml ONCE ONCE VAX IM Last administered on 02/28/17 12:19; Start 02/28/17 at 12:00; Stop 02/28/17 at 12:01; Status DC Olanzapine (ZyPREXA ZYDIS) 2.5 mg PRN Q2HR PRN PO PSYCHOSIS; Start 02/27/17 at 19:00 Acetaminophen (Tylenol) 325 mg PRN Q6HRS PRN PO PAIN / TEMP; Start 02/28/17 at 07:15 Allopurinol (Zyloprim) 100 mg DAILY PO Last administered on 03/01/17 08:18; Start 02/28/17 at 09:00 Aspirin (Children'S Aspirin) 81 mg DAILY PO Last administered on 03/01/17 08: 18; Start 02/28/17 at 09:00 Famotidine (Pepcid) 20 mg BID PO Last administered on 03/01/17 20:01; Start at 09:00 Ferrous Sulfate (Feosol) 325 mg DAILYWLUN PO Last administered on 03/01/17 08: 18; Start 02/28/17 at 12:00 Hydralazine HCl (Apresoline) 10 mg PRN TID PRN PO HYPERTENSION, SEE COMMENTS; Start 02/28/17 at 07:15 Albuterol/ Ipratropium (Duoneb) 3 ml PRN Q4HRS PRN NEB SHORTNESS OF BREATH; Start 02/28/17 at 07:15 Levofloxacin (Levaquin) 250 mg DAILY PO Last administered on 02/28/17 09:59; Start 02/28/17 at 09:00; Stop 02/28/17 at 13:16; Status DC Prednisone (Prednisone) 10 mg DAILY PO Last administered on 03/01/17 08:18; Start 02/28/17 at 09:00 Tramadol HCl (Ultram) 50 mg PRN Q6HRS PRN PO PAIN; Start 02/28/17 at 07:15 Vitamin B Complex 1 cap DAILYWLUN PO Last administered on 03/01/17 08:18; Start 02/28/17 at 12:00 Olanzapine (ZyPREXA) 2.5 mg BID PO Last administered on 03/01/17 20:01; Start 02/28/17 at 21:00 Sertraline HCl (Zoloft) 25 mg DAILY PO Last administered on 03/01/17 08:19; Start 03/01/17 at 09:00 Active Scripts Active Reported Tramadol Hcl (Tramadol HCl) 50 Mg Tablet 50 Mg PO PRN Q6HRS PRN Melatonin 3 Mg Tablet 3 Mg PO PRN QHS PRN Meclizine Hcl 25 Mg Tablet 25 Mg PO PRN TID PRN Hydralazine Hcl 10 Mg Tablet 10 Mg PO PRN TID PRN Duoneb 0.5-3(2.5) Mg/3 Ml (Albuterol/Ipratropium) 3 Ml Ampul.neb 3 Ml NEB PRN Q4HRS PRN Tylenol (Acetaminophen) 325 Mg Tablet 325 Mg PO PRN Q6HRS PRN B Complex (Vitamin B Complex) 1 Each Tablet 1 Each PO DAILYWLUN Prednisone 10 Mg Tablet 10 Mg PO DAILY Olanzapine 5 Mg Tablet 5 Mg PO BID Mirtazapine 15 Mg Tablet 15 Mg PO QHS Levofloxacin 500 Mg Tablet 250 Mg PO DAILY Ferrous Sulfate 325 Mg Tablet 325 Mg PO DAILYWLUN Famotidine 20 Mg Tablet 20 Mg PO BID Aspirin 81 Mg Tab.chew 81 Mg PO DAILY Allopurinol 100 Mg Tablet 100 Mg PO DAILY Diagnosis: Problems: (1) Dementia (2) Anxiety disorder (3) Dementia, vascular, with depression (4) Dementia, vascular, with delusions (5) Dementia in Alzheimer's disease with depression (6) Impulse control disorder (7) Dementia in Alzheimer's disease with delusions AARON DUNN MD Mar 01, 2017 21:17
--- NOTE | 2017-03-01 22:34 | NUR ---
Multiple pills found in patients bed partially dissolved. Patient agitated at HS. Threw water on AMBULANCE OFFICER and stated we were all liars.
--- NOTE | 2017-03-01 22:43 | NUR ---
Behavior Intervention Response and Plan: BIRP Note: Behavior: Assumed Care of patient, patient located in Patient Room at shift change. Patient exhibited the following behavior Drowsy, Withdrawn, Cooperative. Brief assessment on rounds of vital signs, medication needs, lab studies, and pain. Treatment plan problems . Intervention: Patient assessed and the following interventions initiated safety checks 15 Minute Checks Cognitive Assessment , Head to toe Assessment , Medications. Response: After interactions and interventions patient responded in the following manner, Drowsy , Agitated ,Disorganized. Continue to assess behaviors and condition will continue to monitor throughout the shift as needed. Patient educated on ADL's, and hand hygiene. 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 Continue to assess patient for changes in above assessment. Monitor for medication needs, pain, and safety concerns. Hourly rounding performed to ensure safe environment.
--- NOTE | 2017-03-02 04:09 | PN ---
DATE: 02/28/2017 This late entry for 02/28/2017 covers elements not covered in my initial note of 02/28/2017. SUBJECTIVE: I met with the patient the evening of 02/28/2017. The patient slept 8-1/2 hours previous evening, he remains confused, wandering in his wheelchair, restless, anxious, constantly playing with the brakes of the wheelchair, does not try to get out of the wheelchair. Consequent to his recent hip fracture, he appears somewhat withdrawn, depressed, anxious. REVIEW OF SYSTEMS: Ambulation impaired, in a wheelchair. Much of the responses were deduced from assessment rather than direct response from the patient. No CV, , pulmonary, eye, ENT system symptoms on review. MENTAL STATUS EXAMINATION: Oriented to himself. Insight, judgment, recent and remote memory, attention, concentration, fund of knowledge poor, consistent with his diagnosis mentioned in my initial note. PLAN: The patient is on Zyprexa 5 mg twice a day. I would like to minimize the use of atypical antipsychotics given his dementia diagnosis; we will reduce it to 2.5 mg twice a day. Start Zoloft 25 mg a day for mood, anxiety symptoms. Continue rest unchanged. Adjust further as clinically indicated. Reviewed drug contractions, risk/benefit ratio favors no further change at this time. MAN Colton DUNN MD DR: IDANIA/herlinda JOB#: [id number] / [id number]
[2017-03-02 06:11] VITALS: BP 148/77
[2017-03-02] MEDS: ALLOPURINOL 100 MG TABLET. PO SCH (08:46)
[2017-03-02] MEDS: predniSONE 10 MG TABLET PO SCH (08:46)
[2017-03-02] MEDS: FAMOTIDINE 20 MG TABLET PO SCH ×2 (08:46→19:26)
[2017-03-02] MEDS: SERTRALINE 25 MG TABLET. PO SCH (08:46)
[2017-03-02] MEDS: OLANZapine 2.5 MG TABLET PO SCH ×2 (08:46→19:27)
[2017-03-02] MEDS: ASPIRIN 81 MG TAB.CHEW PO SCH (08:46)
--- NOTE | 2017-03-02 11:30 | NUR ---
Attempted to meet and complete Activity Therapy Assessment; however, Pt. was asleep at 1045 and 1130.
[2017-03-02] MEDS: FERROUS SULFATE 325 MG TABLET. PO SCH (12:08)
[2017-03-02] MEDS: VITAMIN B COMPLEX CAPSULE. PO SCH (12:08)
--- NOTE | 2017-03-02 14:29 | NUR ---
Behavior Intervention Response and Plan: BIRP Note: Behavior: Assumed Care of patient, patient located in Day Room at shift change. Patient exhibited the following behavior Sleeping, , . Brief assessment on rounds of vital signs, medication needs, lab studies, and pain. Treatment plan problems . Intervention: Patient assessed and the following interventions initiated safety checks 15 Minute Checks Cognitive Assessment , Head to toe Assessment , Medications. Response: After interactions and interventions patient responded in the following manner, Wandering , Disorganized ,Compliant. Continue to assess behaviors and condition will continue to monitor throughout the shift as needed. Patient educated on ADL's, and hand hygiene. 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 Continue to assess patient for changes in above assessment. Monitor for medication needs, pain, and safety concerns. Hourly rounding performed to ensure safe environment.
[2017-03-02 16:18] VITALS: BP 134/78
[2017-03-02] MEDS: MELATONIN 3 MG TABLET PO PRN (19:26)
[2017-03-02] MEDS: MIRTAZAPINE 15 MG TABLET PO SCH (19:27)
--- NOTE | 2017-03-02 21:08 | PDOC ---
Exam Hector Demential Exam: Hector Note: Please also refer to the separate dictated note~for this date of service dictated separately.~Patient seen individually. Discussed the patient with Nursing staff reviewed the chart.~Reviewed interim history and current functioning. Reviewed vital signs,~Labs/ Radiology~and current medications noted below. Continue current treatment with the changes noted in the dictated addendum note Assessment: Vital Signs: Vital Signs Date Time Temp Pulse Resp B/P (MAP) Pulse Ox O2 Delivery O2 Flow Rate FiO2 03/02/17 16:18 98.0 71 20 134/78 (96) 94 02/28/17 05:52 Room Air I&O Intake and Output 03/03/17 07:00 Intake Total 480 ml Balance 480 ml Intake Oral 480 ml Current Medications: Meds: Current Medications Multi-Ingredient Ointment (Analgesic [place]) 1 delvis PRN QID PRN TP MUSCLE PAIN; Start 02/27/17 at 16:30 Al Hydroxide/Mg Hydroxide (Mylanta Plus Xs) 15 ml PRN AFTMEALHC PRN PO DYSPEPSIA; Start 02/27/17 at 16:30 Magnesium Hydroxide (Milk Of Magnesia) 2,400 mg PRN QHS PRN PO CONSTIPATION; Start 02/27/17 at 16:30 Mirtazapine (Remeron) 15 mg QHS PO Last administered on 03/02/17 19:27; Start 02/27/17 at 21:00 Olanzapine (ZyPREXA) 5 mg BID PO Last administered on 02/28/17 09:59; Start at 21:00; Stop 02/28/17 at 19:18; Status DC Meclizine HCl (Antivert) 25 mg PRN TID PRN PO NAUSEA/ VOMITTING; Start at 16:45 Melatonin 3 mg PRN QHS PRN PO INSOMNIA Last administered on 03/02/17 19:26; Start 02/27/17 at 16:45 Info (FLU VACCINE per PROTOCOL) 1 ea 1X ONCE MC ; Start 02/27/17 at 18:15; Stop 02/27/17 at 18:16; Status UNV Influenza Virus Vaccine Quadrival (Fluarix Quad [id number] Syringe) 0.5 ml ONCE ONCE VAX IM Last administered on 02/28/17 12:19; Start 02/28/17 at 12:00; Stop 02/28/17 at 12:01; Status DC Olanzapine (ZyPREXA ZYDIS) 2.5 mg PRN Q2HR PRN PO PSYCHOSIS; Start 02/27/17 at 19:00 Acetaminophen (Tylenol) 325 mg PRN Q6HRS PRN PO PAIN / TEMP; Start 02/28/17 at 07:15 Allopurinol (Zyloprim) 100 mg DAILY PO Last administered on 03/02/17 08:46; Start 02/28/17 at 09:00 Aspirin (Children'S Aspirin) 81 mg DAILY PO Last administered on 03/02/17 08: 46; Start 02/28/17 at 09:00 Famotidine (Pepcid) 20 mg BID PO Last administered on 03/02/17 19:26; Start at 09:00 Ferrous Sulfate (Feosol) 325 mg DAILYWLUN PO Last administered on 03/02/17 12: 08; Start 02/28/17 at 12:00 Hydralazine HCl (Apresoline) 10 mg PRN TID PRN PO HYPERTENSION, SEE COMMENTS; Start 02/28/17 at 07:15 Albuterol/ Ipratropium (Duoneb) 3 ml PRN Q4HRS PRN NEB SHORTNESS OF BREATH; Start 02/28/17 at 07:15 Levofloxacin (Levaquin) 250 mg DAILY PO Last administered on 02/28/17 09:59; Start 02/28/17 at 09:00; Stop 02/28/17 at 13:16; Status DC Prednisone (Prednisone) 10 mg DAILY PO Last administered on 03/02/17 08:46; Start 02/28/17 at 09:00 Tramadol HCl (Ultram) 50 mg PRN Q6HRS PRN PO PAIN; Start 02/28/17 at 07:15 Vitamin B Complex 1 cap DAILYWLUN PO Last administered on 03/02/17 12:08; Start 02/28/17 at 12:00 Olanzapine (ZyPREXA) 2.5 mg BID PO Last administered on 03/02/17 08:46; Start 02/28/17 at 21:00; Stop 03/02/17 at 19:03; Status DC Sertraline HCl (Zoloft) 25 mg DAILY PO Last administered on 03/02/17 08:46; Start 03/01/17 at 09:00; Stop 03/02/17 at 19:03; Status DC Olanzapine (ZyPREXA) 2.5 mg HS PO Last administered on 03/02/17 19:27; Start 03/02/17 at 21:00 Citalopram Hydrobromide (CeleXA) 10 mg DAILY PO ; Start 03/03/17 at 09:00; Stop 03/05/17 at 10:00 Citalopram Hydrobromide (CeleXA) 20 mg DAILY PO ; Start 03/06/17 at 09:00 Dronabinol (Marinol) 2.5 mg DAILY PO ; Start 03/03/17 at 09:00 Active Scripts Active Reported Tramadol Hcl (Tramadol HCl) 50 Mg Tablet 50 Mg PO PRN Q6HRS PRN Melatonin 3 Mg Tablet 3 Mg PO PRN QHS PRN Meclizine Hcl 25 Mg Tablet 25 Mg PO PRN TID PRN Hydralazine Hcl 10 Mg Tablet 10 Mg PO PRN TID PRN Duoneb 0.5-3(2.5) Mg/3 Ml (Albuterol/Ipratropium) 3 Ml Ampul.neb 3 Ml NEB PRN Q4HRS PRN Tylenol (Acetaminophen) 325 Mg Tablet 325 Mg PO PRN Q6HRS PRN B Complex (Vitamin B Complex) 1 Each Tablet 1 Each PO DAILYWLUN Prednisone 10 Mg Tablet 10 Mg PO DAILY Olanzapine 5 Mg Tablet 5 Mg PO BID Mirtazapine 15 Mg Tablet 15 Mg PO QHS Levofloxacin 500 Mg Tablet 250 Mg PO DAILY Ferrous Sulfate 325 Mg Tablet 325 Mg PO DAILYWLUN Famotidine 20 Mg Tablet 20 Mg PO BID Aspirin 81 Mg Tab.chew 81 Mg PO DAILY Allopurinol 100 Mg Tablet 100 Mg PO DAILY Diagnosis: Problems: (1) Dementia (2) Anxiety disorder (3) Dementia, vascular, with depression (4) Dementia, vascular, with delusions (5) Dementia in Alzheimer's disease with depression (6) Dementia in Alzheimer's disease with delusions (7) Impulse control disorder AARON DUNN MD Mar 02, 2017 21:08
--- NOTE | 2017-03-02 21:46 | NUR ---
Behavior Intervention Response and Plan: BIRP Note: Behavior: Assumed Care of patient, patient located in Patient Room at shift change. Patient exhibited the following behavior calm, Withdrawn, Cooperative. Brief assessment on rounds of vital signs, medication needs, lab studies, and pain. Treatment plan problems 1-2. Intervention: Patient assessed and the following interventions initiated safety checks 15 Minute Checks Cognitive Assessment , Head to toe Assessment , Medications. Response: After interactions and interventions patient responded in the following manner, Calm, cooperative,Disorganized. Continue to assess behaviors and condition will continue to monitor throughout the shift as needed. Patient educated on ADL's, and hand hygiene. 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 Continue to assess patient for changes in above assessment. Monitor for medication needs, pain, and safety concerns. Hourly rounding performed to ensure safe environment.
--- NOTE | 2017-03-03 02:05 | PN ---
DATE: 03/01/2017 SUBJECTIVE: This is a late entry 03/01/2017, covers elements not covered in my initial note of 03/01/2017. The patient was staffed at treatment team meeting morning of 03/01/2017, with the patient's daughter Jovani attending [place]. Reviewed the patient's history, diagnosis, and progress at some length. The patient slept 8 hours previous evening refusing medications at times irritable. REVIEW OF SYSTEMS: Ambulation impaired. No CV, , pulmonary, eye, or ENT system symptoms on review. MENTAL STATUS EXAM: Oriented to herself. Insight, judgment, recent and remote memory, attention, concentration, fund of knowledge poor, consistent with his diagnosis mentioned in my initial note. PLAN: Zyprexa has been reduced from 5 mg b.i.d. to 2.5 mg twice a day with a plan to ultimately discontinue it if possible and adjust the Zoloft to compensate for the mood and anxiety symptoms. Consider Depakote if needed. Addressed all of this with the patient's daughter. I answered her questions. Reviewed drug interactions. Risk/benefit ratio favors no further change. MAN Colton DUNN MD DR: IDANIA/herlinda JOB#: [id number] / [id number]
[2017-03-03 06:25] VITALS: BP 147/76
[2017-03-03] MEDS: ALLOPURINOL 100 MG TABLET. PO SCH (08:25)
[2017-03-03] MEDS: ASPIRIN 81 MG TAB.CHEW PO SCH (08:25)
[2017-03-03] MEDS: FAMOTIDINE 20 MG TABLET PO SCH ×2 (08:25→20:58)
[2017-03-03] MEDS: predniSONE 10 MG TABLET PO SCH (08:25)
[2017-03-03] MEDS: DRONABINOL 2.5 MG CAPSULE PO SCH (08:27)
[2017-03-03] MEDS: VITAMIN B COMPLEX CAPSULE. PO SCH (08:27)
[2017-03-03] MEDS: CITALOPRAM 10 MG TABLET. PO SCH (08:27)
[2017-03-03] MEDS: FERROUS SULFATE 325 MG TABLET. PO SCH (08:28)
--- NOTE | 2017-03-03 08:46 | NUR ---
Behavior Intervention Response and Plan: BIRP Note: Behavior: Assumed Care of patient, patient located in Dining Room at shift change. Patient exhibited the following behavior Restless, Disorganized, Compliant. Brief assessment on rounds of vital signs, medication needs, lab studies, and pain. Treatment plan problems . Intervention: Patient assessed and the following interventions initiated safety checks 15 Minute Checks Head to toe Assessment , Cognitive Assessment , Medications. Response: After interactions and interventions patient responded in the following manner, Cooperative , Able to Focus on Task ,Wandering. Continue to assess behaviors and condition will continue to monitor throughout the shift as needed. Patient educated on ADL's, and hand hygiene. 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 Continue to assess patient for changes in above assessment. Monitor for medication needs, pain, and safety concerns. Hourly rounding performed to ensure safe environment.
[2017-03-03 17:12] VITALS: BP 159/75
[2017-03-03] MEDS: MIRTAZAPINE 15 MG TABLET PO SCH (20:58)
[2017-03-03] MEDS: OLANZapine 2.5 MG TABLET PO SCH (20:59)
--- NOTE | 2017-03-03 21:19 | PDOC ---
Exam Hector Demential Exam: Hector Note: Please also refer to the separate dictated note~for this date of service dictated separately.~Patient seen individually. Discussed the patient with Nursing staff reviewed the chart.~Reviewed interim history and current functioning. Reviewed vital signs,~Labs/ Radiology~and current medications noted below. Continue current treatment with the changes noted in the dictated addendum note Assessment: Vital Signs: Vital Signs Date Time Temp Pulse Resp B/P (MAP) Pulse Ox O2 Delivery O2 Flow Rate FiO2 03/03/17 17:12 97.4 65 16 159/75 (103) 94 Room Air I&O Intake and Output 03/04/17 06:59 Intake Total 720 ml Balance 720 ml Intake Oral 720 ml Current Medications: Meds: Current Medications Multi-Ingredient Ointment (Analgesic [place]) 1 delvis PRN QID PRN TP MUSCLE PAIN; Start 02/27/17 at 16:30 Al Hydroxide/Mg Hydroxide (Mylanta Plus Xs) 15 ml PRN AFTMEALHC PRN PO DYSPEPSIA; Start 02/27/17 at 16:30 Magnesium Hydroxide (Milk Of Magnesia) 2,400 mg PRN QHS PRN PO CONSTIPATION; Start 02/27/17 at 16:30 Mirtazapine (Remeron) 15 mg QHS PO Last administered on 03/03/17 20:58; Start 02/27/17 at 21:00 Olanzapine (ZyPREXA) 5 mg BID PO Last administered on 02/28/17 09:59; Start at 21:00; Stop 02/28/17 at 19:18; Status DC Meclizine HCl (Antivert) 25 mg PRN TID PRN PO NAUSEA/ VOMITTING; Start at 16:45 Melatonin 3 mg PRN QHS PRN PO INSOMNIA Last administered on 03/02/17 19:26; Start 02/27/17 at 16:45 Info (FLU VACCINE per PROTOCOL) 1 ea 1X ONCE MC ; Start 02/27/17 at 18:15; Stop 02/27/17 at 18:16; Status UNV Influenza Virus Vaccine Quadrival (Fluarix Quad [id number] Syringe) 0.5 ml ONCE ONCE VAX IM Last administered on 02/28/17 12:19; Start 02/28/17 at 12:00; Stop 02/28/17 at 12:01; Status DC Olanzapine (ZyPREXA ZYDIS) 2.5 mg PRN Q2HR PRN PO PSYCHOSIS; Start 02/27/17 at 19:00 Acetaminophen (Tylenol) 325 mg PRN Q6HRS PRN PO PAIN / TEMP; Start 02/28/17 at 07:15 Allopurinol (Zyloprim) 100 mg DAILY PO Last administered on 03/03/17 08:25; Start 02/28/17 at 09:00 Aspirin (Children'S Aspirin) 81 mg DAILY PO Last administered on 03/03/17 08: 25; Start 02/28/17 at 09:00 Famotidine (Pepcid) 20 mg BID PO Last administered on 03/03/17 20:58; Start at 09:00 Ferrous Sulfate (Feosol) 325 mg DAILYWLUN PO Last administered on 03/03/17 08: 28; Start 02/28/17 at 12:00 Hydralazine HCl (Apresoline) 10 mg PRN TID PRN PO HYPERTENSION, SEE COMMENTS; Start 02/28/17 at 07:15 Albuterol/ Ipratropium (Duoneb) 3 ml PRN Q4HRS PRN NEB SHORTNESS OF BREATH; Start 02/28/17 at 07:15 Levofloxacin (Levaquin) 250 mg DAILY PO Last administered on 02/28/17 09:59; Start 02/28/17 at 09:00; Stop 02/28/17 at 13:16; Status DC Prednisone (Prednisone) 10 mg DAILY PO Last administered on 03/03/17 08:25; Start 02/28/17 at 09:00 Tramadol HCl (Ultram) 50 mg PRN Q6HRS PRN PO PAIN; Start 02/28/17 at 07:15 Vitamin B Complex 1 cap DAILYWLUN PO Last administered on 03/03/17 08:27; Start 02/28/17 at 12:00 Olanzapine (ZyPREXA) 2.5 mg BID PO Last administered on 03/02/17 08:46; Start 02/28/17 at 21:00; Stop 03/02/17 at 19:03; Status DC Sertraline HCl (Zoloft) 25 mg DAILY PO Last administered on 03/02/17 08:46; Start 03/01/17 at 09:00; Stop 03/02/17 at 19:03; Status DC Olanzapine (ZyPREXA) 2.5 mg HS PO Last administered on 03/03/17 20:59; Start 03/02/17 at 21:00 Citalopram Hydrobromide (CeleXA) 10 mg DAILY PO Last administered on 03/03/17 08:27; Start 03/03/17 at 09:00; Stop 03/05/17 at 10:00 Citalopram Hydrobromide (CeleXA) 20 mg DAILY PO ; Start 03/06/17 at 09:00 Dronabinol (Marinol) 2.5 mg DAILY PO Last administered on 03/03/17 08:27; Start 03/03/17 at 09:00 Active Scripts Active Reported Tramadol Hcl (Tramadol HCl) 50 Mg Tablet 50 Mg PO PRN Q6HRS PRN Melatonin 3 Mg Tablet 3 Mg PO PRN QHS PRN Meclizine Hcl 25 Mg Tablet 25 Mg PO PRN TID PRN Hydralazine Hcl 10 Mg Tablet 10 Mg PO PRN TID PRN Duoneb 0.5-3(2.5) Mg/3 Ml (Albuterol/Ipratropium) 3 Ml Ampul.neb 3 Ml NEB PRN Q4HRS PRN Tylenol (Acetaminophen) 325 Mg Tablet 325 Mg PO PRN Q6HRS PRN B Complex (Vitamin B Complex) 1 Each Tablet 1 Each PO DAILYWLUN Prednisone 10 Mg Tablet 10 Mg PO DAILY Olanzapine 5 Mg Tablet 5 Mg PO BID Mirtazapine 15 Mg Tablet 15 Mg PO QHS Levofloxacin 500 Mg Tablet 250 Mg PO DAILY Ferrous Sulfate 325 Mg Tablet 325 Mg PO DAILYWLUN Famotidine 20 Mg Tablet 20 Mg PO BID Aspirin 81 Mg Tab.chew 81 Mg PO DAILY Allopurinol 100 Mg Tablet 100 Mg PO DAILY Diagnosis: Problems: (1) Dementia (2) Anxiety disorder (3) Dementia, vascular, with depression (4) Dementia, vascular, with delusions (5) Dementia in Alzheimer's disease with depression (6) Dementia in Alzheimer's disease with delusions (7) Impulse control disorder AARON DUNN MD Mar 03, 2017 21:19
--- NOTE | 2017-03-03 22:23 | PN ---
DATE: 03/02/2017 PSYCHIATRIC PROGRESS NOTE This is a late entry for 03/02/2017, covers elements not covered in my initial note of 03/02/2017. SUBJECTIVE: I met with the patient the evening of 03/02/2017. The patient remains somewhat withdrawn, isolative, has no interest in eating, ambulates in a walker, sedated, slept post-breakfast, oral intake poor. We will add Marinol 2.5 mg a day to help with this and reduce the Zyprexa from 2.5 mg b.i.d. to 2.5 mg at bedtime. He has also had some possible GI symptoms and we will change Zoloft to Celexa 10 mg a day for 3 days, then 20 mg a day. REVIEW OF SYSTEMS: Ambulation impaired, in a wheelchair. No CV, , pulmonary, eye, ENT system symptoms on review. MENTAL STATUS EXAM: Oriented to himself. Insight, judgment, recent and remote memory, attention, concentration, fund of knowledge poor, consistent with his diagnosis mentioned in my initial note. PLAN: Make changes noted above. Reviewed drug interactions. Risk/benefit ratio favors no further change. MAN Colton DUNN MD DR: IDANIA/herlinda JOB#: [id number] / [id number]
--- NOTE | 2017-03-04 00:55 | NUR ---
Behavior Intervention Response and Plan: BIRP Note: Behavior: Assumed Care of patient, patient located in Day Room at shift change. Patient exhibited the following behavior Restless, Disorganized, Anxious. Brief assessment on rounds of vital signs, medication needs, lab studies, and pain. Treatment plan problems .:1-2 Intervention: Patient assessed and the following interventions initiated safety checks 15 Minute Checks Cognitive Assessment , Head to toe Assessment , Medications. Response: After interactions and interventions patient responded in the following manner, Restless , Able to Focus on Task ,Compliant. Continue to assess behaviors and condition will continue to monitor throughout the shift as needed. Patient educated on ADL's, and hand hygiene. 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 Continue to assess patient for changes in above assessment. Monitor for medication needs, pain, and safety concerns. Hourly rounding performed to ensure safe environment.
[2017-03-04 06:24] VITALS: BP 171/90
--- NOTE | 2017-03-04 08:00 | NUR ---
Patient very agitated at breakfast refused medications. Patent telling nurse to sit down and that he would not take medications. He also stated if I did not leave he would shove the pills down my throat.
[2017-03-04] MEDS: DRONABINOL 2.5 MG CAPSULE PO SCH (08:19)
[2017-03-04] MEDS: FAMOTIDINE 20 MG TABLET PO SCH ×2 (08:19→20:26)
[2017-03-04] MEDS: ASPIRIN 81 MG TAB.CHEW PO SCH (08:20)
[2017-03-04] MEDS: ALLOPURINOL 100 MG TABLET. PO SCH (08:20)
[2017-03-04] MEDS: predniSONE 10 MG TABLET PO SCH (08:20)
[2017-03-04] MEDS: CITALOPRAM 10 MG TABLET. PO SCH (08:20)
[2017-03-04] MEDS: FERROUS SULFATE 325 MG TABLET. PO SCH (08:21)
[2017-03-04] MEDS: VITAMIN B COMPLEX CAPSULE. PO SCH (08:21)
--- NOTE | 2017-03-04 08:30 | NUR ---
Patient compliant with medications now. Administered all scheduled medications. Patients appetite is also increased since starting marinol.
[2017-03-04 16:33] VITALS: BP 122/71
--- NOTE | 2017-03-04 20:15 | PN ---
DATE: 03/03/2017 PSYCHIATRIC PROGRESS NOTE This late entry for 03/03/2017 covers elements not covered in my initial note of 03/03/2017. SUBJECTIVE: I met with the patient evening of 03/03/2017. Remains confused, wandering, calm, compliant, fidgety, puts himself on the floor, redirects. REVIEW OF SYSTEMS: No CV, , pulmonary, eye, ENT system symptoms on review, in a wheelchair. Reliability poor. MENTAL STATUS EXAM: Oriented to himself. Insight, judgment, recent and remote memory, attention, concentration, fund of knowledge poor, consistent with his diagnosis mentioned in my initial note. PLAN: Continue current psychotropics mentioned in my initial note. Review drug interactions, risk/benefit ratio favors no further change. MAN Colton DUNN MD DR: IDANIA/herlinda JOB#: [id number] / [id number]
[2017-03-04] MEDS: OLANZapine 2.5 MG TABLET PO SCH (20:26)
[2017-03-04] MEDS: MIRTAZAPINE 15 MG TABLET PO SCH (20:26)
--- NOTE | 2017-03-04 22:54 | PDOC ---
Exam Hector Demential Exam: Hector Note: Please also refer to the separate dictated note~for this date of service dictated separately.~Patient seen individually. Discussed the patient with Nursing staff reviewed the chart.~Reviewed interim history and current functioning. Reviewed vital signs,~Labs/ Radiology~and current medications noted below. Continue current treatment with the changes noted in the dictated addendum note Assessment: Vital Signs: Vital Signs Date Time Temp Pulse Resp B/P (MAP) Pulse Ox O2 Delivery O2 Flow Rate FiO2 03/04/17 16:33 98.8 90 20 122/71 (88) 95 03/03/17 17:12 Room Air I&O Intake and Output 03/05/17 07:00 Intake Total 840 ml Balance 840 ml Intake Oral 840 ml Current Medications: Meds: Current Medications Multi-Ingredient Ointment (Analgesic [place]) 1 delvis PRN QID PRN TP MUSCLE PAIN; Start 02/27/17 at 16:30 Al Hydroxide/Mg Hydroxide (Mylanta Plus Xs) 15 ml PRN AFTMEALHC PRN PO DYSPEPSIA; Start 02/27/17 at 16:30 Magnesium Hydroxide (Milk Of Magnesia) 2,400 mg PRN QHS PRN PO CONSTIPATION; Start 02/27/17 at 16:30 Mirtazapine (Remeron) 15 mg QHS PO Last administered on 03/04/17 20:26; Start 02/27/17 at 21:00 Olanzapine (ZyPREXA) 5 mg BID PO Last administered on 02/28/17 09:59; Start at 21:00; Stop 02/28/17 at 19:18; Status DC Meclizine HCl (Antivert) 25 mg PRN TID PRN PO NAUSEA/ VOMITTING; Start at 16:45 Melatonin 3 mg PRN QHS PRN PO INSOMNIA Last administered on 03/02/17 19:26; Start 02/27/17 at 16:45 Info (FLU VACCINE per PROTOCOL) 1 ea 1X ONCE MC ; Start 02/27/17 at 18:15; Stop 02/27/17 at 18:16; Status UNV Influenza Virus Vaccine Quadrival (Fluarix Quad [id number] Syringe) 0.5 ml ONCE ONCE VAX IM Last administered on 02/28/17 12:19; Start 02/28/17 at 12:00; Stop 02/28/17 at 12:01; Status DC Olanzapine (ZyPREXA ZYDIS) 2.5 mg PRN Q2HR PRN PO PSYCHOSIS; Start 02/27/17 at 19:00 Acetaminophen (Tylenol) 325 mg PRN Q6HRS PRN PO PAIN / TEMP; Start 02/28/17 at 07:15 Allopurinol (Zyloprim) 100 mg DAILY PO Last administered on 03/04/17 08:20; Start 02/28/17 at 09:00 Aspirin (Children'S Aspirin) 81 mg DAILY PO Last administered on 03/04/17 08: 20; Start 02/28/17 at 09:00 Famotidine (Pepcid) 20 mg BID PO Last administered on 03/04/17 20:26; Start at 09:00 Ferrous Sulfate (Feosol) 325 mg DAILYWLUN PO Last administered on 03/04/17 08: 21; Start 02/28/17 at 12:00 Hydralazine HCl (Apresoline) 10 mg PRN TID PRN PO HYPERTENSION, SEE COMMENTS; Start 02/28/17 at 07:15 Albuterol/ Ipratropium (Duoneb) 3 ml PRN Q4HRS PRN NEB SHORTNESS OF BREATH; Start 02/28/17 at 07:15 Levofloxacin (Levaquin) 250 mg DAILY PO Last administered on 02/28/17 09:59; Start 02/28/17 at 09:00; Stop 02/28/17 at 13:16; Status DC Prednisone (Prednisone) 10 mg DAILY PO Last administered on 03/04/17 08:20; Start 02/28/17 at 09:00 Tramadol HCl (Ultram) 50 mg PRN Q6HRS PRN PO PAIN; Start 02/28/17 at 07:15 Vitamin B Complex 1 cap DAILYWLUN PO Last administered on 03/04/17 08:21; Start 02/28/17 at 12:00 Olanzapine (ZyPREXA) 2.5 mg BID PO Last administered on 03/02/17 08:46; Start 02/28/17 at 21:00; Stop 03/02/17 at 19:03; Status DC Sertraline HCl (Zoloft) 25 mg DAILY PO Last administered on 03/02/17 08:46; Start 03/01/17 at 09:00; Stop 03/02/17 at 19:03; Status DC Olanzapine (ZyPREXA) 2.5 mg HS PO Last administered on 03/04/17 20:26; Start 03/02/17 at 21:00 Citalopram Hydrobromide (CeleXA) 10 mg DAILY PO Last administered on 03/04/17 08:20; Start 03/03/17 at 09:00; Stop 03/05/17 at 10:00 Citalopram Hydrobromide (CeleXA) 20 mg DAILY PO ; Start 03/06/17 at 09:00 Dronabinol (Marinol) 2.5 mg DAILY PO Last administered on 03/04/17 08:19; Start 03/03/17 at 09:00 Quetiapine Fumarate (SEROquel) 12.5 mg 0900 PO ; Start 03/05/17 at 09:00 Active Scripts Active Reported Tramadol Hcl (Tramadol HCl) 50 Mg Tablet 50 Mg PO PRN Q6HRS PRN Melatonin 3 Mg Tablet 3 Mg PO PRN QHS PRN Meclizine Hcl 25 Mg Tablet 25 Mg PO PRN TID PRN Hydralazine Hcl 10 Mg Tablet 10 Mg PO PRN TID PRN Duoneb 0.5-3(2.5) Mg/3 Ml (Albuterol/Ipratropium) 3 Ml Ampul.neb 3 Ml NEB PRN Q4HRS PRN Tylenol (Acetaminophen) 325 Mg Tablet 325 Mg PO PRN Q6HRS PRN B Complex (Vitamin B Complex) 1 Each Tablet 1 Each PO DAILYWLUN Prednisone 10 Mg Tablet 10 Mg PO DAILY Olanzapine 5 Mg Tablet 5 Mg PO BID Mirtazapine 15 Mg Tablet 15 Mg PO QHS Levofloxacin 500 Mg Tablet 250 Mg PO DAILY Ferrous Sulfate 325 Mg Tablet 325 Mg PO DAILYWLUN Famotidine 20 Mg Tablet 20 Mg PO BID Aspirin 81 Mg Tab.chew 81 Mg PO DAILY Allopurinol 100 Mg Tablet 100 Mg PO DAILY Diagnosis: Problems: (1) Dementia (2) Anxiety disorder (3) Dementia, vascular, with depression (4) Dementia, vascular, with delusions (5) Dementia in Alzheimer's disease with depression (6) Dementia in Alzheimer's disease with delusions (7) Impulse control disorder AARON DUNN MD Mar 04, 2017 22:54
--- NOTE | 2017-03-05 00:42 | NUR ---
Behavior Intervention Response and Plan: BIRP Note: Behavior: Assumed Care of patient, patient located in Day Room at shift change. Patient exhibited the following behavior Restless, Disorganized, Defensive. Brief assessment on rounds of vital signs, medication needs, lab studies, and pain. Treatment plan problems :1-2 Intervention: Patient assessed and the following interventions initiated safety checks 15 Minute Checks Cognitive Assessment , Head to toe Assessment , Medications. Response: After interactions and interventions patient responded in the following manner, Restless , Cooperative ,Able to Focus on Task. Continue to assess behaviors and condition will continue to monitor throughout the shift as needed. Patient educated on ADL's, and hand hygiene. Plan: Continue to monitor Master Treatment Plan for patient's progress toward short term goals of Decreased Agitation, Decreased Aggression, longterm goals to return to previous living setting vs placement. Continue to assess patient for changes in above assessment. Monitor for medication needs, pain, and safety concerns. Hourly rounding performed to ensure safe environment.
[2017-03-05 06:35] VITALS: BP 150/75
[2017-03-05] MEDS: FAMOTIDINE 20 MG TABLET PO SCH ×2 (09:23→20:47)
[2017-03-05] MEDS: predniSONE 10 MG TABLET PO SCH (09:23)
[2017-03-05] MEDS: ALLOPURINOL 100 MG TABLET. PO SCH (09:23)
[2017-03-05] MEDS: CITALOPRAM 10 MG TABLET. PO SCH (09:23)
[2017-03-05] MEDS: DRONABINOL 2.5 MG CAPSULE PO SCH (09:23)
[2017-03-05] MEDS: ASPIRIN 81 MG TAB.CHEW PO SCH (09:23)
[2017-03-05] MEDS: QUEtiapine 25 MG TABLET. PO SCH (09:24)
[2017-03-05 09:32] LABS: BASO # 0.1 x10^3/uL (0.0-0.2); BASO % 1 % (0-3); EOS # 0.2 x10^3/uL (0.0-0.7); EOS % 1 % (0-3); HEMOGLOBIN 11.7 g/dL (13.0-17.5); LYMPH # 2.4 x10^3/uL (1.0-4.8); LYMPH % 14 % (24-48); MEAN CORPUSCULAR HEMOGLOBIN 29 pg (25-35); MEAN CORPUSCULAR HGB CONC 33 g/dL (31-37); MEAN CORPUSCULAR VOLUME 89 fL (79-100); MONO # 1.1 x10^3/uL (0.0-1.1); MONO % 7 % (0-9); NEUT # 13.4 x10^3uL (1.8-7.7); NEUT % 78 % (31-73); PLATELET COUNT 300 x10^3/uL (140-400); RED BLOOD COUNT 4.05 x10^6/uL (4.30-5.70); RED CELL DISTRIBUTION WIDTH 14.9 % (11.5-14.5); WHITE BLOOD COUNT 17.3 x10^3/uL (4.0-11.0)
--- NOTE | 2017-03-05 09:38 | NUR ---
Group Note [facility] Group Type Orientation Group Start Time: 9:00am End Time: 9:15am Problem: Anxiety Purpose: Increase Orientation Level of Participation: Absent Behaviors or Symptoms Observed: Interventions: Education, Orientation, Socialization Response: Plan: Group Participation Additional Comments:
[2017-03-05 09:46] LABS: ALBUMIN 3.3 g/dL (3.4-5.0); ALBUMIN/GLOBULIN RATIO 0.8 (1.0-1.7); CALCIUM 9.8 mg/dL (8.5-10.1); CREATININE 1.2 mg/dL (0.7-1.3); GFR 57.8; POTASSIUM 4.3 mmol/L (3.5-5.1); TOTAL BILIRUBIN 0.4 mg/dL (0.2-1.0); TOTAL PROTEIN 7.5 g/dL (6.4-8.2)
[2017-03-05 10:49] LABS: % EOS 1 % (0-5); % LYMPHS 25 % (24-48); % MONOS 7 % (0-10); % SEGS 67 % (35-66)
[2017-03-05 10:51] LABS: PLATELET CLUMP PRESENT; PLT ESTIMATE ADEQUATE (ADEQUATE)
--- NOTE | 2017-03-05 11:38 | NUR ---
Behavior Intervention Response and Plan: BIRP Note: Behavior: Assumed Care of patient, patient located in Hallway at shift change. Patient exhibited the following behavior Calm, Withdrawn, Non Compliant with Meds. Brief assessment on rounds of vital signs, medication needs, lab studies, and pain. Treatment plan problems 1-2. Intervention: Patient assessed and the following interventions initiated safety checks 15 Minute Checks Personal Alarm in place , Cognitive Assessment , Head to toe Assessment. Response: After interactions and interventions patient responded in the following manner, Non Compliant with Meds , Disorganized ,Calm. Continue to assess behaviors and condition will continue to monitor throughout the shift as needed. Patient educated on ADL's, and hand hygiene. 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 Continue to assess patient for changes in above assessment. Monitor for medication needs, pain, and safety concerns. Hourly rounding performed to ensure safe environment.
[2017-03-05] MEDS: FERROUS SULFATE 325 MG TABLET. PO SCH (12:00)
[2017-03-05] MEDS: VITAMIN B COMPLEX CAPSULE. PO SCH (12:00)
--- NOTE | 2017-03-05 13:30 | NUR ---
Discussed pt's labs with Dr. Mckeon. Received order to collect UA.
[2017-03-05 16:30] VITALS: BP 140/72
[2017-03-05] MEDS: MIRTAZAPINE 15 MG TABLET PO SCH (20:46)
[2017-03-05] MEDS: MAGNESIUM HYDROXIDE 2,400 MG/30 ML ORAL.SUSP. PO PRN (20:50)
--- NOTE | 2017-03-05 21:10 | PDOC ---
Exam Hector Demential Exam: Hector Note: Please also refer to the separate dictated note~for this date of service dictated separately.~Patient seen individually. Discussed the patient with Nursing staff reviewed the chart.~Reviewed interim history and current functioning. Reviewed vital signs,~Labs/ Radiology~and current medications noted below. Continue current treatment with the changes noted in the dictated addendum note Assessment: Vital Signs: Vital Signs Date Time Temp Pulse Resp B/P (MAP) Pulse Ox O2 Delivery O2 Flow Rate FiO2 03/05/17 16:30 97.0 73 18 140/72 (94) 97 03/03/17 17:12 Room Air I&O Intake and Output 03/06/17 07:00 Intake Total 700 ml Balance 700 ml Intake Oral 700 ml Labs: Laboratory Tests Test 03/05/17 09:03 White Blood Count 17.3 x10^3/uL (4.0-11.0) H Red Blood Count 4.05 x10^6/uL (4.30-5.70) L Hemoglobin 11.7 g/dL (13.0-17.5) L Hematocrit 36.0 % (39.0-53.0) L Mean Corpuscular Volume 89 fL (79-100) Mean Corpuscular Hemoglobin 29 pg (25-35) Mean Corpuscular Hemoglobin Concent 33 g/dL (31-37) Red Cell Distribution Width 14.9 % (11.5-14.5) H Platelet Count 300 x10^3/uL (140-400) Neutrophils (%) (Auto) 78 % (31-73) H Lymphocytes (%) (Auto) 14 % (24-48) L Monocytes (%) (Auto) 7 % (0-9) Eosinophils (%) (Auto) 1 % (0-3) Basophils (%) (Auto) 1 % (0-3) Neutrophils # (Auto) 13.4 x10^3uL (1.8-7.7) H Lymphocytes # (Auto) 2.4 x10^3/uL (1.0-4.8) Monocytes # (Auto) 1.1 x10^3/uL (0.0-1.1) Eosinophils # (Auto) 0.2 x10^3/uL (0.0-0.7) Basophils # (Auto) 0.1 x10^3/uL (0.0-0.2) Segmented Neutrophils % 67 % (35-66) H Lymphocytes % 25 % (24-48) Monocytes % 7 % (0-10) Eosinophils % 1 % (0-5) Platelet Estimate Adequate (ADEQUATE) Platelet Clumps, EDTA Present Large Platelets Occ Giant Platelets Occ Sodium Level 142 mmol/L (136-145) Potassium Level 4.3 mmol/L (3.5-5.1) Chloride Level 106 mmol/L (98-107) Carbon Dioxide Level 30 mmol/L (21-32) Anion Gap 6 (6-14) Blood Urea Nitrogen 30 mg/dL (8-26) H Creatinine 1.2 mg/dL (0.7-1.3) Estimated GFR (Cockcroft-Gault) 57.8 BUN/Creatinine Ratio 25 (6-20) H Glucose Level 118 mg/dL (70-99) H Calcium Level 9.8 mg/dL (8.5-10.1) Total Bilirubin 0.4 mg/dL (0.2-1.0) Aspartate Amino Transferase (AST) 32 U/L (15-37) Alanine Aminotransferase (ALT) 53 U/L (16-63) Alkaline Phosphatase 166 U/L (46-116) H Total Protein 7.5 g/dL (6.4-8.2) Albumin 3.3 g/dL (3.4-5.0) L Albumin/Globulin Ratio 0.8 (1.0-1.7) L Current Medications: Meds: Current Medications Multi-Ingredient Ointment (Analgesic [place]) 1 delvis PRN QID PRN TP MUSCLE PAIN; Start 02/27/17 at 16:30 Al Hydroxide/Mg Hydroxide (Mylanta Plus Xs) 15 ml PRN AFTMEALHC PRN PO DYSPEPSIA; Start 02/27/17 at 16:30 Magnesium Hydroxide (Milk Of Magnesia) 2,400 mg PRN QHS PRN PO CONSTIPATION Last administered on 03/05/17 20:50; Start 02/27/17 at 16:30 Mirtazapine (Remeron) 15 mg QHS PO Last administered on 03/05/17 20:46; Start 02/27/17 at 21:00 Olanzapine (ZyPREXA) 5 mg BID PO Last administered on 02/28/17 09:59; Start at 21:00; Stop 02/28/17 at 19:18; Status DC Meclizine HCl (Antivert) 25 mg PRN TID PRN PO NAUSEA/ VOMITTING; Start at 16:45 Melatonin 3 mg PRN QHS PRN PO INSOMNIA Last administered on 03/02/17 19:26; Start 02/27/17 at 16:45 Info (FLU VACCINE per PROTOCOL) 1 ea 1X ONCE MC ; Start 02/27/17 at 18:15; Stop 02/27/17 at 18:16; Status UNV Influenza Virus Vaccine Quadrival (Fluarix Quad [id number] Syringe) 0.5 ml ONCE ONCE VAX IM Last administered on 02/28/17 12:19; Start 02/28/17 at 12:00; Stop 02/28/17 at 12:01; Status DC Olanzapine (ZyPREXA ZYDIS) 2.5 mg PRN Q2HR PRN PO PSYCHOSIS; Start 02/27/17 at 19:00 Acetaminophen (Tylenol) 325 mg PRN Q6HRS PRN PO PAIN / TEMP; Start 02/28/17 at 07:15 Allopurinol (Zyloprim) 100 mg DAILY PO Last administered on 03/05/17 09:23; Start 02/28/17 at 09:00 Aspirin (Children'S Aspirin) 81 mg DAILY PO Last administered on 03/05/17 09: 23; Start 02/28/17 at 09:00 Famotidine (Pepcid) 20 mg BID PO Last administered on 03/05/17 20:47; Start at 09:00 Ferrous Sulfate (Feosol) 325 mg DAILYWLUN PO Last administered on 03/04/17 08: 21; Start 02/28/17 at 12:00 Hydralazine HCl (Apresoline) 10 mg PRN TID PRN PO HYPERTENSION, SEE COMMENTS; Start 02/28/17 at 07:15 Albuterol/ Ipratropium (Duoneb) 3 ml PRN Q4HRS PRN NEB SHORTNESS OF BREATH; Start 02/28/17 at 07:15 Levofloxacin (Levaquin) 250 mg DAILY PO Last administered on 02/28/17 09:59; Start 02/28/17 at 09:00; Stop 02/28/17 at 13:16; Status DC Prednisone (Prednisone) 10 mg DAILY PO Last administered on 03/05/17 09:23; Start 02/28/17 at 09:00 Tramadol HCl (Ultram) 50 mg PRN Q6HRS PRN PO PAIN; Start 02/28/17 at 07:15 Vitamin B Complex 1 cap DAILYWLUN PO Last administered on 03/04/17 08:21; Start 02/28/17 at 12:00 Olanzapine (ZyPREXA) 2.5 mg BID PO Last administered on 03/02/17 08:46; Start 02/28/17 at 21:00; Stop 03/02/17 at 19:03; Status DC Sertraline HCl (Zoloft) 25 mg DAILY PO Last administered on 03/02/17 08:46; Start 03/01/17 at 09:00; Stop 03/02/17 at 19:03; Status DC Olanzapine (ZyPREXA) 2.5 mg HS PO Last administered on 03/04/17 20:26; Start 03/02/17 at 21:00; Stop 03/05/17 at 18:34; Status DC Citalopram Hydrobromide (CeleXA) 10 mg DAILY PO Last administered on 03/05/17 09:23; Start 03/03/17 at 09:00; Stop 03/05/17 at 10:00; Status DC Citalopram Hydrobromide (CeleXA) 20 mg DAILY PO ; Start 03/06/17 at 09:00 Dronabinol (Marinol) 2.5 mg DAILY PO Last administered on 03/05/17 09:23; Start 03/03/17 at 09:00 Quetiapine Fumarate (SEROquel) 12.5 mg 0900 PO Last administered on 03/05/17 09:24; Start 03/05/17 at 09:00 Active Scripts Active Reported Tramadol Hcl (Tramadol HCl) 50 Mg Tablet 50 Mg PO PRN Q6HRS PRN Melatonin 3 Mg Tablet 3 Mg PO PRN QHS PRN Meclizine Hcl 25 Mg Tablet 25 Mg PO PRN TID PRN Hydralazine Hcl 10 Mg Tablet 10 Mg PO PRN TID PRN Duoneb 0.5-3(2.5) Mg/3 Ml (Albuterol/Ipratropium) 3 Ml Ampul.neb 3 Ml NEB PRN Q4HRS PRN Tylenol (Acetaminophen) 325 Mg Tablet 325 Mg PO PRN Q6HRS PRN B Complex (Vitamin B Complex) 1 Each Tablet 1 Each PO DAILYWLUN Prednisone 10 Mg Tablet 10 Mg PO DAILY Olanzapine 5 Mg Tablet 5 Mg PO BID Mirtazapine 15 Mg Tablet 15 Mg PO QHS Levofloxacin 500 Mg Tablet 250 Mg PO DAILY Ferrous Sulfate 325 Mg Tablet 325 Mg PO DAILYWLUN Famotidine 20 Mg Tablet 20 Mg PO BID Aspirin 81 Mg Tab.chew 81 Mg PO DAILY Allopurinol 100 Mg Tablet 100 Mg PO DAILY Diagnosis: Problems: (1) Dementia (2) Anxiety disorder (3) Dementia, vascular, with depression (4) Dementia, vascular, with delusions (5) Dementia in Alzheimer's disease with depression (6) Dementia in Alzheimer's disease with delusions (7) Impulse control disorder AARON DUNN MD Mar 05, 2017 21:10
[2017-03-05 22:26] LABS: BILIRUBIN,URINE NEG (NEG); CLARITY,URINE HAZY; COLOR,URINE YELLOW; GLUCOSE,URINE NEG (NEG); NITRITE,URINE NEG (NEG); UROBILINOGEN,URINE 0.2 mg/dL (0.2 mg/dL)
[2017-03-05 22:27] LABS: BACTERIA,URINE MANY /HPF (0-FEW); SQUAMOUS EPITHELIAL CELL,UR FEW /LPF
[2017-03-05 22:32] LABS: HYALINE CASTS, URINE MOD /HPF
[2017-03-06 06:27] VITALS: BP 137/70
[2017-03-06] MEDS: DRONABINOL 2.5 MG CAPSULE PO SCH (08:42)
[2017-03-06] MEDS: ALLOPURINOL 100 MG TABLET. PO SCH (08:43)
[2017-03-06] MEDS: ASPIRIN 81 MG TAB.CHEW PO SCH (08:43)
[2017-03-06] MEDS: QUEtiapine 25 MG TABLET. PO SCH (08:43)
[2017-03-06] MEDS: predniSONE 10 MG TABLET PO SCH (08:43)
[2017-03-06] MEDS: FAMOTIDINE 20 MG TABLET PO SCH ×2 (08:43→19:19)
[2017-03-06] MEDS: CITALOPRAM 20 MG TABLET. PO SCH (08:46)
--- NOTE | 2017-03-06 09:45 | NUR ---
THERAPEUTIC RECREATION GROUP NOTE TITLE :Relaxation Session: Aromatherapy, heated blanket and hand massages ACTIVITY : Relaxation GOAL : Elevate mood, increase concentration/ attention. Decrease stress/ anxiety DURATION : 60 minutes RESPONSE : No participation
--- NOTE | 2017-03-06 10:29 | NUR ---
Behavior Intervention Response and Plan: BIRP Note: Behavior: Assumed Care of patient, patient located in Dining Room at shift change. Patient exhibited the following behavior Calm, Compliant, Withdrawn. Brief assessment on rounds of vital signs, medication needs, lab studies, and pain. Treatment plan problems 1-2. Intervention: Patient assessed and the following interventions initiated safety checks 15 Minute Checks Personal Alarm in place , Cognitive Assessment , Head to toe Assessment. Response: After interactions and interventions patient responded in the following manner, Drowsy , Cooperative ,Calm. Continue to assess behaviors and condition will continue to monitor throughout the shift as needed. Patient educated on ADL's, and hand hygiene. 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 Continue to assess patient for changes in above assessment. Monitor for medication needs, pain, and safety concerns. Hourly rounding performed to ensure safe environment.
--- NOTE | 2017-03-06 14:45 | NUR ---
THERAPEUTIC RECREATION GROUP NOTE TITLE :Grid Scattergories ACTIVITY : Cognitive Stimulation GOAL : Maintain or improve cognitive functioning and memory. DURATION : 90 minutes RESPONSE : Minimal participation. Pt. joined towards the end of group and needed direct prompting to contribute answers. He was able to come up with a few answers.
[2017-03-06] MEDS: FERROUS SULFATE 325 MG TABLET. PO SCH (15:55)
[2017-03-06] MEDS: VITAMIN B COMPLEX CAPSULE. PO SCH (15:55)
[2017-03-06 16:13] VITALS: BP 122/68
--- NOTE | 2017-03-06 16:15 | NUR ---
ACTIVITY THERAPY ASSESSMENT Completed based on observation and interview. Pt. was agreeable and calm. 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 Pt. talked about enjoying the outdoors, camping, mountains. He also enjoys watching movies, playing cards, and Bingo. He has little awareness of others and minimal interaction. Pt. often times does not ask for assistance with transfers and usually ends up on the floor, shouting for help. Initial goal aimed to increase awareness and socialization: Pt. will participate in at least one group a day.
--- NOTE | 2017-03-06 17:43 | PN ---
DATE: 03/04/2017 This is a late entry, covers the elements not covered in my initial note of 03/04/2017. SUBJECTIVE: I met with the patient the evening of 03/04/2017. The patient has had a better day today. Initially he refused his medications in the morning and told the nursing staff he take it when he was "good and ready" otherwise, "you can shut them down." He has been wandering in his wheelchair. REVIEW OF SYSTEMS: Ambulation impaired, in the wheelchair. No CV, , pulmonary, eye, ENT system symptoms on review. Reliability poor. MENTAL STATUS EXAM: Oriented to himself. Insight, judgment, recent and remote memory, attention, concentration, fund of knowledge poor, consistent with his diagnosis as mentioned in my initial note. PLAN: The patient is on Marinol 2.5 mg daily to stimulate his appetite, Zyprexa was reduced to 2.5 mg b.i.d. We will add Seroquel 12.5 mg at 9 a.m. with a plan to increase it gradually and then discontinue the Zyprexa. Maintain Remeron, melatonin, along with Celexa at current dosage. Reviewed drug interactions, risk/benefit ratio favors no further change at this time. AARON DUNN MD DR: IDANIA/herlinda JOB#: [id number] / [id number]
[2017-03-06] MEDS: MIRTAZAPINE 15 MG TABLET PO SCH (19:19)
--- NOTE | 2017-03-06 21:04 | PDOC ---
Exam Hector Demential Exam: Hector Note: Please also refer to the separate dictated note~for this date of service dictated separately.~Patient seen individually. Discussed the patient with Nursing staff reviewed the chart.~Reviewed interim history and current functioning. Reviewed vital signs,~Labs/ Radiology~and current medications noted below. Continue current treatment with the changes noted in the dictated addendum note Assessment: Vital Signs: Vital Signs Date Time Temp Pulse Resp B/P (MAP) Pulse Ox O2 Delivery O2 Flow Rate FiO2 03/06/17 16:13 97.6 77 18 122/68 (86) 96 03/03/17 17:12 Room Air I&O Intake and Output 03/07/17 07:00 Intake Total 1320 ml Balance 1320 ml Intake Oral 1320 ml # Bowel Movements 1 Current Medications: Meds: Current Medications Multi-Ingredient Ointment (Analgesic [place]) 1 delvis PRN QID PRN TP MUSCLE PAIN; Start 02/27/17 at 16:30 Al Hydroxide/Mg Hydroxide (Mylanta Plus Xs) 15 ml PRN AFTMEALHC PRN PO DYSPEPSIA; Start 02/27/17 at 16:30 Magnesium Hydroxide (Milk Of Magnesia) 2,400 mg PRN QHS PRN PO CONSTIPATION Last administered on 03/05/17 20:50; Start 02/27/17 at 16:30 Mirtazapine (Remeron) 15 mg QHS PO Last administered on 03/06/17 19:19; Start 02/27/17 at 21:00 Olanzapine (ZyPREXA) 5 mg BID PO Last administered on 02/28/17 09:59; Start at 21:00; Stop 02/28/17 at 19:18; Status DC Meclizine HCl (Antivert) 25 mg PRN TID PRN PO NAUSEA/ VOMITTING; Start at 16:45 Melatonin 3 mg PRN QHS PRN PO INSOMNIA Last administered on 03/02/17 19:26; Start 02/27/17 at 16:45 Info (FLU VACCINE per PROTOCOL) 1 ea 1X ONCE MC ; Start 02/27/17 at 18:15; Stop 02/27/17 at 18:16; Status UNV Influenza Virus Vaccine Quadrival (Fluarix Quad [id number] Syringe) 0.5 ml ONCE ONCE VAX IM Last administered on 02/28/17 12:19; Start 02/28/17 at 12:00; Stop 02/28/17 at 12:01; Status DC Olanzapine (ZyPREXA ZYDIS) 2.5 mg PRN Q2HR PRN PO PSYCHOSIS; Start 02/27/17 at 19:00 Acetaminophen (Tylenol) 325 mg PRN Q6HRS PRN PO PAIN / TEMP; Start 02/28/17 at 07:15 Allopurinol (Zyloprim) 100 mg DAILY PO Last administered on 03/06/17 08:43; Start 02/28/17 at 09:00 Aspirin (Children'S Aspirin) 81 mg DAILY PO Last administered on 03/06/17 08: 43; Start 02/28/17 at 09:00 Famotidine (Pepcid) 20 mg BID PO Last administered on 03/06/17 19:19; Start at 09:00 Ferrous Sulfate (Feosol) 325 mg DAILYWLUN PO Last administered on 03/06/17 15: 55; Start 02/28/17 at 12:00 Hydralazine HCl (Apresoline) 10 mg PRN TID PRN PO HYPERTENSION, SEE COMMENTS; Start 02/28/17 at 07:15 Albuterol/ Ipratropium (Duoneb) 3 ml PRN Q4HRS PRN NEB SHORTNESS OF BREATH; Start 02/28/17 at 07:15 Levofloxacin (Levaquin) 250 mg DAILY PO Last administered on 02/28/17 09:59; Start 02/28/17 at 09:00; Stop 02/28/17 at 13:16; Status DC Prednisone (Prednisone) 10 mg DAILY PO Last administered on 03/06/17 08:43; Start 02/28/17 at 09:00 Tramadol HCl (Ultram) 50 mg PRN Q6HRS PRN PO PAIN; Start 02/28/17 at 07:15 Vitamin B Complex 1 cap DAILYWLUN PO Last administered on 03/06/17 15:55; Start 02/28/17 at 12:00 Olanzapine (ZyPREXA) 2.5 mg BID PO Last administered on 03/02/17 08:46; Start 02/28/17 at 21:00; Stop 03/02/17 at 19:03; Status DC Sertraline HCl (Zoloft) 25 mg DAILY PO Last administered on 03/02/17 08:46; Start 03/01/17 at 09:00; Stop 03/02/17 at 19:03; Status DC Olanzapine (ZyPREXA) 2.5 mg HS PO Last administered on 03/04/17 20:26; Start 03/02/17 at 21:00; Stop 03/05/17 at 18:34; Status DC Citalopram Hydrobromide (CeleXA) 10 mg DAILY PO Last administered on 03/05/17 09:23; Start 03/03/17 at 09:00; Stop 03/05/17 at 10:00; Status DC Citalopram Hydrobromide (CeleXA) 20 mg DAILY PO Last administered on 03/06/17 08:46; Start 03/06/17 at 09:00 Dronabinol (Marinol) 2.5 mg DAILY PO Last administered on 03/06/17 08:42; Start 03/03/17 at 09:00 Quetiapine Fumarate (SEROquel) 12.5 mg 0900 PO Last administered on 03/06/17 08:43; Start 03/05/17 at 09:00 Active Scripts Active Reported Tramadol Hcl (Tramadol HCl) 50 Mg Tablet 50 Mg PO PRN Q6HRS PRN Melatonin 3 Mg Tablet 3 Mg PO PRN QHS PRN Meclizine Hcl 25 Mg Tablet 25 Mg PO PRN TID PRN Hydralazine Hcl 10 Mg Tablet 10 Mg PO PRN TID PRN Duoneb 0.5-3(2.5) Mg/3 Ml (Albuterol/Ipratropium) 3 Ml Ampul.neb 3 Ml NEB PRN Q4HRS PRN Tylenol (Acetaminophen) 325 Mg Tablet 325 Mg PO PRN Q6HRS PRN B Complex (Vitamin B Complex) 1 Each Tablet 1 Each PO DAILYWLUN Prednisone 10 Mg Tablet 10 Mg PO DAILY Olanzapine 5 Mg Tablet 5 Mg PO BID Mirtazapine 15 Mg Tablet 15 Mg PO QHS Levofloxacin 500 Mg Tablet 250 Mg PO DAILY Ferrous Sulfate 325 Mg Tablet 325 Mg PO DAILYWLUN Famotidine 20 Mg Tablet 20 Mg PO BID Aspirin 81 Mg Tab.chew 81 Mg PO DAILY Allopurinol 100 Mg Tablet 100 Mg PO DAILY Diagnosis: Problems: (1) Dementia (2) Anxiety disorder (3) Dementia, vascular, with depression (4) Dementia, vascular, with delusions (5) Dementia in Alzheimer's disease with depression (6) Dementia in Alzheimer's disease with delusions (7) Impulse control disorder AARON DUNN MD Mar 06, 2017 21:04
[2017-03-07] MEDS: MELATONIN 3 MG TABLET PO PRN (02:06)
--- NOTE | 2017-03-07 02:10 | NUR ---
Nursing Note Patient having difficulty going to sleep. Patient found up from bed with alarm sounding. Patient states that he has to use the toilet. Patient helped to the toilet but has no result. Patient asked if he would like a PRN to help him sleep. Patient agreed to take melatonin. Patient given PRN melatonin per PRN order.
--- NOTE | 2017-03-07 02:18 | NUR ---
Nursing Note Patient displaying increased agitation and anxiety. Patient is pulling on door handles repeatedly and wandering in corona. Patient is repeatedly going from bed to floor and is scooting self from room to hallway. Patient given PRN Zyprexa per PRN order.
--- NOTE | 2017-03-07 02:31 | NUR ---
Behavior Intervention Response and Plan: BIRP Note: Behavior: Assumed Care of patient, patient located in Day Room at shift change. Patient exhibited the following behavior Calm, Compliant, Cooperative. Brief assessment on rounds of vital signs, medication needs, lab studies, and pain. Treatment plan problems 1-2. Intervention: Patient assessed and the following interventions initiated safety checks 15 Minute Checks Personal Alarm in place , Cognitive Assessment , Medications. Response: After interactions and interventions patient responded in the following manner, Calm , Compliant ,Cooperative. Continue to assess behaviors and condition will continue to monitor throughout the shift as needed. Patient educated on ADL's, and hand hygiene. 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 Continue to assess patient for changes in above assessment. Monitor for medication needs, pain, and safety concerns. Hourly rounding performed to ensure safe environment.
[2017-03-07 06:29] VITALS: BP 121/66
--- NOTE | 2017-03-07 09:25 | NUR ---
Group Note [facility] Group Type Orientation Group Start Time: 9:00am End Time: 9:15am Problem: Anxiety Purpose: Increase Orientation Level of Participation: low Behaviors or Symptoms Observed: Pt was in the day room during group, but was sleeping. Interventions: Clarification Response: Pt remained on the couch sleeping for the duration of group. Plan: Group Participation Additional Comments:
[2017-03-07] MEDS: ASPIRIN 81 MG TAB.CHEW PO SCH (09:47)
[2017-03-07] MEDS: ALLOPURINOL 100 MG TABLET. PO SCH (09:47)
[2017-03-07] MEDS: FAMOTIDINE 20 MG TABLET PO SCH ×2 (09:47→20:12)
[2017-03-07] MEDS: predniSONE 10 MG TABLET PO SCH (09:47)
[2017-03-07] MEDS: CITALOPRAM 20 MG TABLET. PO SCH (09:47)
[2017-03-07] MEDS: DRONABINOL 2.5 MG CAPSULE PO SCH (09:49)
[2017-03-07] MEDS: VITAMIN B COMPLEX CAPSULE. PO SCH (09:49)
[2017-03-07] MEDS: QUEtiapine 25 MG TABLET. PO SCH (09:50)
[2017-03-07] MEDS: FERROUS SULFATE 325 MG TABLET. PO SCH (09:50)
--- NOTE | 2017-03-07 14:02 | NUR ---
Patient c/o difficulty eating his lunch today, that he was having issues swallowing. Nurse put in orders for swallow study to assess if a different diet is appropriate. Patient in currently lying in bed, HOB up 30 degrees, he denies chest pain and SOB, will continue to monitor.
--- NOTE | 2017-03-07 14:17 | NUR ---
Group Note [facility] Group Type "What's in your Heart" Start Time: 1:00pm End Time: 2:00pm Problem: Depression Purpose: Elevate Mood, expressing feelings, socializing Level of Participation: Absent Behaviors or Symptoms Observed: Interventions: Reminiscence Response: Plan: Group Participation Additional Comments:
--- NOTE | 2017-03-07 15:21 | NUR ---
Behavior Intervention Response and Plan: BIRP Note: Behavior: Assumed Care of patient, patient located in Dining Room at shift change. Patient exhibited the following behavior Disorganized, Resistive, Drowsy. Brief assessment on rounds of vital signs, medication needs, lab studies, and pain. Treatment plan problems . Intervention: Patient assessed and the following interventions initiated safety checks 15 Minute Checks Cognitive Assessment , Head to toe Assessment , Medications. Response: After interactions and interventions patient responded in the following manner, Disorganized , Withdrawn ,Drowsy. Continue to assess behaviors and condition will continue to monitor throughout the shift as needed. Patient educated on ADL's, and hand hygiene. Plan: Continue to monitor Master Treatment Plan for patient's progress toward short term goals of Decreased Agitation, Decreased Aggression, fci goals to return to previous living setting vs placement. Continue to assess patient for changes in above assessment. Monitor for medication needs, pain, and safety concerns. Hourly rounding performed to ensure safe environment.
[2017-03-07 16:20] VITALS: BP 195/80
[2017-03-07 16:34] VITALS: BP 135/58
[2017-03-07] MEDS: CHOLECALCIFEROL (VITAMIN D3) 50,000 UNIT CAPSULE PO SCH (16:46)
[2017-03-07] MEDS ORDERED: QUEtiapine 25 MG TABLET. PO SCH (17:00)
--- NOTE | 2017-03-07 17:04 | PN ---
DATE: 03/05/2017 PSYCHIATRIC PROGRESS NOTE This is a late entry 03/05/2017, covers elements not covered in my initial note of 03/05/2017. SUBJECTIVE: I met with the patient the evening of 03/05/2017. Morning of 03/05/2017, he is noncompliant with treatment, hid his medications in a cup, took it later. WBCs are increased. UA is being checked. We will defer to Dr. Mckeon. He was agitated intermittently. REVIEW OF SYSTEMS: Ambulation impaired, in wheelchair. No CV, , pulmonary, eye, ENT system symptoms on review. Reliability poor. MENTAL STATUS EXAM: Oriented to himself. Insight, judgment, recent and remote memory, attention, concentration, fund of knowledge poor, consistent with his diagnoses mentioned in my initial note. PLAN: Stop the scheduled Zyprexa, may need to increase Seroquel later. Continue rest of psychotropics. Review drug contractions. Risk/benefit ratio favors no further change. MAN Colton DUNN MD DR: IDANIA/herlinda JOB#: [id number] / [id number]
[2017-03-07] MEDS ORDERED: traZODone 50 MG TABLET. PO PRN (19:00)
[2017-03-07] MEDS: MIRTAZAPINE 15 MG TABLET PO SCH (20:12)
[2017-03-07] MEDS: AMOXICILLIN 500 MG CAPSULE PO SCH (20:13)
--- NOTE | 2017-03-07 21:00 | PDOC ---
Exam Hector Demential Exam: Hector Note: Please also refer to the separate dictated note~for this date of service dictated separately.~Patient seen individually. Discussed the patient with Nursing staff reviewed the chart.~Reviewed interim history and current functioning. Reviewed vital signs,~Labs/ Radiology~and current medications noted below. Continue current treatment with the changes noted in the dictated addendum note Assessment: Vital Signs: Vital Signs Date Time Temp Pulse Resp B/P (MAP) Pulse Ox O2 Delivery O2 Flow Rate FiO2 03/07/17 16:34 135/58 (83) 03/07/17 16:20 97.7 66 17 95 03/03/17 17:12 Room Air I&O Intake and Output 03/08/17 07:00 Intake Total 1080 ml Balance 1080 ml Intake Oral 1080 ml Current Medications: Meds: Current Medications Multi-Ingredient Ointment (Analgesic [place]) 1 delvis PRN QID PRN TP MUSCLE PAIN; Start 02/27/17 at 16:30 Al Hydroxide/Mg Hydroxide (Mylanta Plus Xs) 15 ml PRN AFTMEALHC PRN PO DYSPEPSIA; Start 02/27/17 at 16:30 Magnesium Hydroxide (Milk Of Magnesia) 2,400 mg PRN QHS PRN PO CONSTIPATION Last administered on 03/05/17 20:50; Start 02/27/17 at 16:30 Mirtazapine (Remeron) 15 mg QHS PO Last administered on 03/07/17 20:12; Start 02/27/17 at 21:00 Olanzapine (ZyPREXA) 5 mg BID PO Last administered on 02/28/17 09:59; Start at 21:00; Stop 02/28/17 at 19:18; Status DC Meclizine HCl (Antivert) 25 mg PRN TID PRN PO NAUSEA/ VOMITTING; Start at 16:45 Melatonin 3 mg PRN QHS PRN PO INSOMNIA Last administered on 03/07/17 02:06; Start 02/27/17 at 16:45 Info (FLU VACCINE per PROTOCOL) 1 ea 1X ONCE MC ; Start 02/27/17 at 18:15; Stop 02/27/17 at 18:16; Status UNV Influenza Virus Vaccine Quadrival (Fluarix Quad [id number] Syringe) 0.5 ml ONCE ONCE VAX IM Last administered on 02/28/17 12:19; Start 02/28/17 at 12:00; Stop 02/28/17 at 12:01; Status DC Olanzapine (ZyPREXA ZYDIS) 2.5 mg PRN Q2HR PRN PO PSYCHOSIS Last administered on 03/07/17 02:18; Start 02/27/17 at 19:00 Acetaminophen (Tylenol) 325 mg PRN Q6HRS PRN PO PAIN / TEMP; Start 02/28/17 at 07:15 Allopurinol (Zyloprim) 100 mg DAILY PO Last administered on 03/07/17 09:47; Start 02/28/17 at 09:00 Aspirin (Children'S Aspirin) 81 mg DAILY PO Last administered on 03/07/17 09: 47; Start 02/28/17 at 09:00 Famotidine (Pepcid) 20 mg BID PO Last administered on 03/07/17 20:12; Start at 09:00 Ferrous Sulfate (Feosol) 325 mg DAILYWLUN PO Last administered on 03/07/17 09: 50; Start 02/28/17 at 12:00 Hydralazine HCl (Apresoline) 10 mg PRN TID PRN PO HYPERTENSION, SEE COMMENTS; Start 02/28/17 at 07:15 Albuterol/ Ipratropium (Duoneb) 3 ml PRN Q4HRS PRN NEB SHORTNESS OF BREATH; Start 02/28/17 at 07:15 Levofloxacin (Levaquin) 250 mg DAILY PO Last administered on 02/28/17 09:59; Start 02/28/17 at 09:00; Stop 02/28/17 at 13:16; Status DC Prednisone (Prednisone) 10 mg DAILY PO Last administered on 03/07/17 09:47; Start 02/28/17 at 09:00 Tramadol HCl (Ultram) 50 mg PRN Q6HRS PRN PO PAIN; Start 02/28/17 at 07:15 Vitamin B Complex 1 cap DAILYWLUN PO Last administered on 03/07/17 09:49; Start 02/28/17 at 12:00 Olanzapine (ZyPREXA) 2.5 mg BID PO Last administered on 03/02/17 08:46; Start 02/28/17 at 21:00; Stop 03/02/17 at 19:03; Status DC Sertraline HCl (Zoloft) 25 mg DAILY PO Last administered on 03/02/17 08:46; Start 03/01/17 at 09:00; Stop 03/02/17 at 19:03; Status DC Olanzapine (ZyPREXA) 2.5 mg HS PO Last administered on 03/04/17 20:26; Start 03/02/17 at 21:00; Stop 03/05/17 at 18:34; Status DC Citalopram Hydrobromide (CeleXA) 10 mg DAILY PO Last administered on 03/05/17 09:23; Start 03/03/17 at 09:00; Stop 03/05/17 at 10:00; Status DC Citalopram Hydrobromide (CeleXA) 20 mg DAILY PO Last administered on 03/07/17 09:47; Start 03/06/17 at 09:00 Dronabinol (Marinol) 2.5 mg DAILY PO Last administered on 03/07/17 09:49; Start 03/03/17 at 09:00 Quetiapine Fumarate (SEROquel) 12.5 mg 0900 PO Last administered on 03/07/17 09:50; Start 03/05/17 at 09:00; Stop 03/07/17 at 14:08; Status DC Quetiapine Fumarate (SEROquel) 12.5 mg BID@0900,1700 PO Last administered on 16:48; Start 03/07/17 at 17:00; Stop 03/07/17 at 19:18; Status DC Vitamin D (Vitamin D3) 50,000 unit WEEKLY PO Last administered on 03/07/17 16: 46; Start 03/07/17 at 18:00 Amoxicillin (Amoxil) 500 mg [id number] PO Last administered on 03/07/17 20:13; Start 03/07/17 at 21:00; Stop 03/13/17 at 20:59 Trazodone HCl (Desyrel) 50 mg PRN QHS PRN PO INSOMNIA, MAY REPEAT X1; Start at 19:00 Quetiapine Fumarate (SEROquel) 25 mg TID@0900,1300,1700 PO ; Start 03/08/17 at 09:00 Active Scripts Active Reported Tramadol Hcl (Tramadol HCl) 50 Mg Tablet 50 Mg PO PRN Q6HRS PRN Melatonin 3 Mg Tablet 3 Mg PO PRN QHS PRN Meclizine Hcl 25 Mg Tablet 25 Mg PO PRN TID PRN Hydralazine Hcl 10 Mg Tablet 10 Mg PO PRN TID PRN Duoneb 0.5-3(2.5) Mg/3 Ml (Albuterol/Ipratropium) 3 Ml Ampul.neb 3 Ml NEB PRN Q4HRS PRN Tylenol (Acetaminophen) 325 Mg Tablet 325 Mg PO PRN Q6HRS PRN B Complex (Vitamin B Complex) 1 Each Tablet 1 Each PO DAILYWLUN Prednisone 10 Mg Tablet 10 Mg PO DAILY Olanzapine 5 Mg Tablet 5 Mg PO BID Mirtazapine 15 Mg Tablet 15 Mg PO QHS Levofloxacin 500 Mg Tablet 250 Mg PO DAILY Ferrous Sulfate 325 Mg Tablet 325 Mg PO DAILYWLUN Famotidine 20 Mg Tablet 20 Mg PO BID Aspirin 81 Mg Tab.chew 81 Mg PO DAILY Allopurinol 100 Mg Tablet 100 Mg PO DAILY Diagnosis: Problems: (1) Dementia (2) Anxiety disorder (3) Dementia, vascular, with depression (4) Dementia, vascular, with delusions (5) Dementia in Alzheimer's disease with depression (6) Dementia in Alzheimer's disease with delusions (7) Impulse control disorder AARON DUNN MD Mar 07, 2017 21:00
--- NOTE | 2017-03-08 00:34 | NUR ---
Behavior Intervention Response and Plan: BIRP Note: Behavior: Assumed Care of patient, patient located in Day Room at shift change. Patient exhibited the following behavior Disorganized, Social, Non Compliant with Meds. Brief assessment on rounds of vital signs, medication needs, lab studies, and pain. Treatment plan problems 1-2. Intervention: Patient assessed and the following interventions initiated safety checks 15 Minute Checks Personal Alarm in place , Cognitive Assessment , Medications. Response: After interactions and interventions patient responded in the following manner, Calm , Resistive ,Non Compliant with Meds. Continue to assess behaviors and condition will continue to monitor throughout the shift as needed. Patient educated on ADL's, and hand hygiene. 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 Continue to assess patient for changes in above assessment. Monitor for medication needs, pain, and safety concerns. Hourly rounding performed to ensure safe environment.
[2017-03-08 06:04] VITALS: BP 159/77
[2017-03-08] MEDS: CITALOPRAM 20 MG TABLET. PO SCH (08:01)
[2017-03-08] MEDS: predniSONE 10 MG TABLET PO SCH (08:01)
[2017-03-08] MEDS: ASPIRIN 81 MG TAB.CHEW PO SCH (08:01)
[2017-03-08] MEDS: ALLOPURINOL 100 MG TABLET. PO SCH (08:01)
[2017-03-08] MEDS: FAMOTIDINE 20 MG TABLET PO SCH ×2 (08:01→20:03)
[2017-03-08] MEDS: DRONABINOL 2.5 MG CAPSULE PO SCH (08:03)
[2017-03-08] MEDS: QUEtiapine 25 MG TABLET. PO SCH ×3 (08:04→16:40)
[2017-03-08] MEDS: AMOXICILLIN 500 MG CAPSULE PO SCH (08:05)
--- NOTE | 2017-03-08 08:19 | PN ---
DATE: 03/06/2017 PSYCHIATRIC PROGRESS NOTE This is a late entry 03/06/2017, covers elements not covered in my initial note of 03/06/2017. Met with the patient in the evening of 03/06/2017. He is somewhat agitated the previous evening with care, confused, but not as agitated on 03/06/2017. REVIEW OF SYSTEMS: He is in his wheelchair. No CV, , pulmonary, eye, ENT system symptoms on review. MENTAL STATUS EXAM: Oriented to himself. Insight, judgment, recent and remote memory, attention, concentration, fund of knowledge poor, consistent with his diagnosis mentioned in my initial note. PLAN: Continue current psychotropics. Reviewed drug interactions. Risk/benefit ratio favors no further change. Remeron at 15 mg h.s., melatonin p.r.n., Zyprexa p.r.n., Celexa 10 mg a day, Seroquel 12.5 mg a.m. and we will add p.m. dosage at 5:00 p.m. to help with his evening agitation. Adjust further as clinically indicated. MAN Colton DUNN MD DR: IDANIA/herlinda JOB#: [id number] / [id number]
--- NOTE | 2017-03-08 09:00 | NUR ---
Behavior Intervention Response and Plan: BIRP Note: Behavior: Assumed Care of patient, patient located in Dining Room at shift change. Patient exhibited the following behavior Wandering, Disorganized, Restless. Brief assessment on rounds of vital signs, medication needs, lab studies, and pain. Treatment plan problems 1 & 2. Intervention: Patient assessed and the following interventions initiated safety checks 15 Minute Checks Cognitive Assessment , Head to toe Assessment , Medications. Response: After interactions and interventions patient responded in the following manner, Calm , Appropriate ,Compliant. Continue to assess behaviors and condition will continue to monitor throughout the shift as needed. Patient educated on ADL's, and hand hygiene. 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 Continue to assess patient for changes in above assessment. Monitor for medication needs, pain, and safety concerns. Hourly rounding performed to ensure safe environment.
[2017-03-08] MEDS: IPRATRPIUM/ALBUTEROL 0.5/2.5MG 3 ML NEBU. NEB PRN ×2 (09:40→20:50)
[2017-03-08] MEDS: FERROUS SULFATE 325 MG TABLET. PO SCH (12:09)
[2017-03-08] MEDS: VITAMIN B COMPLEX CAPSULE. PO SCH (12:10)
[2017-03-08] MEDS: AMOXICILLIN 250 MG CAPSULE PO SCH ×2 (14:00→20:03)
--- NOTE | 2017-03-08 15:04 | NUR ---
Group Note [facility] Group Type Picture Frame Decorating Start Time: 1:00pm End Time: 2:15pm Problem: Depression Purpose: Elevate Mood, socialization, increase creativity Level of Participation: Absent; pt was asleep. Behaviors or Symptoms Observed: Interventions: Directed Focus Response: Plan: Group Participation Additional Comments:
[2017-03-08 16:20] VITALS: BP 122/75
[2017-03-08] MEDS: MIRTAZAPINE 15 MG TABLET PO SCH (20:03)
[2017-03-08] MEDS: MELATONIN 3 MG TABLET PO PRN (20:04)
--- NOTE | 2017-03-08 20:53 | PDOC ---
Exam Hector Demential Exam: Hector Note: Please also refer to the separate dictated note~for this date of service dictated separately.~Patient seen individually. Discussed the patient with Nursing staff reviewed the chart.~Reviewed interim history and current functioning. Reviewed vital signs,~Labs/ Radiology~and current medications noted below. Continue current treatment with the changes noted in the dictated addendum note Assessment: Vital Signs: Vital Signs Date Time Temp Pulse Resp B/P (MAP) Pulse Ox O2 Delivery O2 Flow Rate FiO2 03/08/17 20:50 95 Room Air 03/08/17 16:20 97.7 80 18 122/75 (91) I&O Intake and Output 03/09/17 07:00 Intake Total 960 ml Balance 960 ml Intake Oral 960 ml Current Medications: Meds: Current Medications Multi-Ingredient Ointment (Analgesic [place]) 1 delvis PRN QID PRN TP MUSCLE PAIN; Start 02/27/17 at 16:30 Al Hydroxide/Mg Hydroxide (Mylanta Plus Xs) 15 ml PRN AFTMEALHC PRN PO DYSPEPSIA; Start 02/27/17 at 16:30 Magnesium Hydroxide (Milk Of Magnesia) 2,400 mg PRN QHS PRN PO CONSTIPATION Last administered on 03/05/17 20:50; Start 02/27/17 at 16:30 Mirtazapine (Remeron) 15 mg QHS PO Last administered on 03/08/17 20:03; Start 02/27/17 at 21:00 Olanzapine (ZyPREXA) 5 mg BID PO Last administered on 02/28/17 09:59; Start at 21:00; Stop 02/28/17 at 19:18; Status DC Meclizine HCl (Antivert) 25 mg PRN TID PRN PO NAUSEA/ VOMITTING; Start at 16:45 Melatonin 3 mg PRN QHS PRN PO INSOMNIA Last administered on 03/08/17 20:04; Start 02/27/17 at 16:45 Info (FLU VACCINE per PROTOCOL) 1 ea 1X ONCE MC ; Start 02/27/17 at 18:15; Stop 02/27/17 at 18:16; Status UNV Influenza Virus Vaccine Quadrival (Fluarix Quad [id number] Syringe) 0.5 ml ONCE ONCE VAX IM Last administered on 02/28/17 12:19; Start 02/28/17 at 12:00; Stop 02/28/17 at 12:01; Status DC Olanzapine (ZyPREXA ZYDIS) 2.5 mg PRN Q2HR PRN PO PSYCHOSIS Last administered on 03/07/17 02:18; Start 02/27/17 at 19:00 Acetaminophen (Tylenol) 325 mg PRN Q6HRS PRN PO PAIN / TEMP; Start 02/28/17 at 07:15 Allopurinol (Zyloprim) 100 mg DAILY PO Last administered on 03/08/17 08:01; Start 02/28/17 at 09:00 Aspirin (Children'S Aspirin) 81 mg DAILY PO Last administered on 03/08/17 08: 01; Start 02/28/17 at 09:00 Famotidine (Pepcid) 20 mg BID PO Last administered on 03/08/17 20:03; Start at 09:00 Ferrous Sulfate (Feosol) 325 mg DAILYWLUN PO Last administered on 03/08/17 12: 09; Start 02/28/17 at 12:00 Hydralazine HCl (Apresoline) 10 mg PRN TID PRN PO HYPERTENSION, SEE COMMENTS; Start 02/28/17 at 07:15 Albuterol/ Ipratropium (Duoneb) 3 ml PRN Q4HRS PRN NEB SHORTNESS OF BREATH Last administered on 03/08/17 20:50; Start 02/28/17 at 07:15 Levofloxacin (Levaquin) 250 mg DAILY PO Last administered on 02/28/17 09:59; Start 02/28/17 at 09:00; Stop 02/28/17 at 13:16; Status DC Prednisone (Prednisone) 10 mg DAILY PO Last administered on 03/08/17 08:01; Start 02/28/17 at 09:00 Tramadol HCl (Ultram) 50 mg PRN Q6HRS PRN PO PAIN; Start 02/28/17 at 07:15 Vitamin B Complex 1 cap DAILYWLUN PO Last administered on 03/08/17 12:10; Start 02/28/17 at 12:00 Olanzapine (ZyPREXA) 2.5 mg BID PO Last administered on 03/02/17 08:46; Start 02/28/17 at 21:00; Stop 03/02/17 at 19:03; Status DC Sertraline HCl (Zoloft) 25 mg DAILY PO Last administered on 03/02/17 08:46; Start 03/01/17 at 09:00; Stop 03/02/17 at 19:03; Status DC Olanzapine (ZyPREXA) 2.5 mg HS PO Last administered on 03/04/17 20:26; Start 03/02/17 at 21:00; Stop 03/05/17 at 18:34; Status DC Citalopram Hydrobromide (CeleXA) 10 mg DAILY PO Last administered on 03/05/17 09:23; Start 03/03/17 at 09:00; Stop 03/05/17 at 10:00; Status DC Citalopram Hydrobromide (CeleXA) 20 mg DAILY PO Last administered on 03/08/17 08:01; Start 03/06/17 at 09:00 Dronabinol (Marinol) 2.5 mg DAILY PO Last administered on 03/08/17 08:03; Start 03/03/17 at 09:00 Quetiapine Fumarate (SEROquel) 12.5 mg 0900 PO Last administered on 03/07/17 09:50; Start 03/05/17 at 09:00; Stop 03/07/17 at 14:08; Status DC Quetiapine Fumarate (SEROquel) 12.5 mg BID@0900,1700 PO Last administered on 16:48; Start 03/07/17 at 17:00; Stop 03/07/17 at 19:18; Status DC Vitamin D (Vitamin D3) 50,000 unit WEEKLY PO Last administered on 03/07/17 16: 46; Start 03/07/17 at 18:00 Amoxicillin (Amoxil) 500 mg [id number] PO Last administered on 03/08/17 08:05; Start 03/07/17 at 21:00; Stop 03/08/17 at 13:45; Status DC Trazodone HCl (Desyrel) 50 mg PRN QHS PRN PO INSOMNIA, MAY REPEAT X1; Start at 19:00 Quetiapine Fumarate (SEROquel) 25 mg TID@0900,1300,1700 PO Last administered on 03/08/17 16:40; Start 03/08/17 at 09:00 Amoxicillin (Amoxil) 500 mg [id number] PO Last administered on 03/08/17 20:03; Start 03/08/17 at 14:00 Active Scripts Active Reported Tramadol Hcl (Tramadol HCl) 50 Mg Tablet 50 Mg PO PRN Q6HRS PRN Melatonin 3 Mg Tablet 3 Mg PO PRN QHS PRN Meclizine Hcl 25 Mg Tablet 25 Mg PO PRN TID PRN Hydralazine Hcl 10 Mg Tablet 10 Mg PO PRN TID PRN Duoneb 0.5-3(2.5) Mg/3 Ml (Albuterol/Ipratropium) 3 Ml Ampul.neb 3 Ml NEB PRN Q4HRS PRN Tylenol (Acetaminophen) 325 Mg Tablet 325 Mg PO PRN Q6HRS PRN B Complex (Vitamin B Complex) 1 Each Tablet 1 Each PO DAILYWLUN Prednisone 10 Mg Tablet 10 Mg PO DAILY Olanzapine 5 Mg Tablet 5 Mg PO BID Mirtazapine 15 Mg Tablet 15 Mg PO QHS Levofloxacin 500 Mg Tablet 250 Mg PO DAILY Ferrous Sulfate 325 Mg Tablet 325 Mg PO DAILYWLUN Famotidine 20 Mg Tablet 20 Mg PO BID Aspirin 81 Mg Tab.chew 81 Mg PO DAILY Allopurinol 100 Mg Tablet 100 Mg PO DAILY Diagnosis: Problems: (1) Dementia (2) Anxiety disorder (3) Dementia, vascular, with depression (4) Dementia, vascular, with delusions (5) Dementia in Alzheimer's disease with depression (6) Dementia in Alzheimer's disease with delusions (7) Impulse control disorder AARON DUNN MD Mar 08, 2017 20:53
--- NOTE | 2017-03-08 21:09 | NUR ---
Pt given PRN melatonin to aid sleep, pending results.
--- NOTE | 2017-03-08 21:10 | NUR ---
Behavior Intervention Response and Plan: BIRP Note: Behavior: Assumed Care of patient, patient located in Patient Room at shift change. Patient exhibited the following behavior Disorganized, Drowsy. Brief assessment on rounds of vital signs, medication needs, lab studies, and pain. Treatment plan problems 1-2. Intervention: Patient assessed and the following interventions initiated safety checks 15 Minute Checks Personal Alarm in place , Cognitive Assessment , Medications. Response: After interactions and interventions patient responded in the following manner, Disorganized, Drowsy, Meds and assessment with coaxing. Continue to assess behaviors and condition will continue to monitor throughout the shift as needed. Patient educated on ADL's, and hand hygiene. 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 Continue to assess patient for changes in above assessment. Monitor for medication needs, pain, and safety concerns. Hourly rounding performed to ensure safe environment.
[2017-03-09 06:22] VITALS: BP 129/73
--- NOTE | 2017-03-09 07:45 | NUR ---
Pt agitated in day room this morning. Pt threw the blanket that was around him on the floor and was yelling. This RN attempted to talk with him and pt attempted to kick and said he would "turn me into minced meat." Attempted to administer AM medications, pt spit them out. Pt eventually took crushed medications after multiple attempts. Will continue to monitor.
[2017-03-09] MEDS: CITALOPRAM 20 MG TABLET. PO SCH (07:58)
[2017-03-09] MEDS: predniSONE 10 MG TABLET PO SCH (07:58)
[2017-03-09] MEDS: ASPIRIN 81 MG TAB.CHEW PO SCH (07:59)
[2017-03-09] MEDS: FAMOTIDINE 20 MG TABLET PO SCH ×2 (07:59→19:32)
[2017-03-09] MEDS: QUEtiapine 25 MG TABLET. PO SCH ×3 (07:59→17:25)
[2017-03-09] MEDS: ALLOPURINOL 100 MG TABLET. PO SCH (07:59)
[2017-03-09] MEDS: AMOXICILLIN 250 MG CAPSULE PO SCH ×3 (07:59→19:31)
[2017-03-09] MEDS: DRONABINOL 2.5 MG CAPSULE PO SCH (08:01)
--- NOTE | 2017-03-09 08:24 | PN ---
DATE: 03/07/2017 This late entry of 03/07/2017 covers elements not covered in my initial note of 03/07/2017. I met with the patient evening of 03/07/2017. The patient is somewhat restless previous evening, sleeps during the day, does not takes his medications whole. We will add trazodone 50 mg at bedtime p.r.n., may repeat x 1 for insomnia. UA is positive for UTI and he is on antibiotics. REVIEW OF SYSTEMS: Ambulation impaired, in a wheelchair. No CV, , pulmonary, eye, ENT system symptoms on review. MENTAL STATUS EXAM: Oriented to himself. Insight, judgment, recent and remote memory, attention, concentration, fund of knowledge poor, consistent with his diagnosis mentioned in my initial note. PLAN: Add the trazodone as noted. Reviewed drug interactions. Risk/benefit ratio favors no further change. AARON DUNN MD DR: IDANIA/herlinda JOB#: [id number] / [id number]
--- NOTE | 2017-03-09 10:40 | NUR ---
Behavior Intervention Response and Plan: BIRP Note: Behavior: Assumed Care of patient, patient located in Dining Room at shift change. Patient exhibited the following behavior Disorganized, Non Compliant with Meds, Agitated. Brief assessment on rounds of vital signs, medication needs, lab studies, and pain. Treatment plan problems 1-2. Intervention: Patient assessed and the following interventions initiated safety checks 15 Minute Checks Personal Alarm in place , Cognitive Assessment , Head to toe Assessment. Response: After interactions and interventions patient responded in the following manner, Disorganized , Non Compliant with Meds ,Resistive. Continue to assess behaviors and condition will continue to monitor throughout the shift as needed. Patient educated on ADL's, and hand hygiene. 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 Continue to assess patient for changes in above assessment. Monitor for medication needs, pain, and safety concerns. Hourly rounding performed to ensure safe environment.
--- NOTE | 2017-03-09 11:00 | NUR ---
THERAPEUTIC RECREATION GROUP NOTE TITLE :Creating Happiness and Moving to Music ACTIVITY : Education/ Exercise GOAL : Increase self-expression/insight, coping skills, morale, attention, flexibility/strength. Decrease stress/ anxiety, impulsivity. DURATION : 60 minutes RESPONSE : No participation
--- NOTE | 2017-03-09 14:30 | NUR ---
THERAPEUTIC RECREATION GROUP NOTE TITLE :Comfort Zones OUTSIDE ACTIVITY : Activities and Games GOAL : Increase alertness, focus, morale, socialization. Decrease stress/ anxiety, impulsivity. DURATION : 50 minutes RESPONSE : No participation
[2017-03-09] MEDS: FERROUS SULFATE 325 MG TABLET. PO SCH (14:50)
[2017-03-09] MEDS: VITAMIN B COMPLEX CAPSULE. PO SCH (14:50)
--- NOTE | 2017-03-09 16:31 | NUR ---
Group Note [facility] Group Type: Depression Start Time: 1:20pm End Time: 2:20 pm Problem: Depression Purpose: Learn Coping Skills Level of Participation: Absent Behaviors or Symptoms Observed: Interventions: Education Response: in room Plan: continue to encourage participation
[2017-03-09 16:34] VITALS: BP 128/73
[2017-03-09] MEDS: MIRTAZAPINE 15 MG TABLET PO SCH (19:31)
--- NOTE | 2017-03-09 22:24 | PDOC ---
Exam Hector Demential Exam: Hector Note: Please also refer to the separate dictated note~for this date of service dictated separately.~Patient seen individually. Discussed the patient with Nursing staff reviewed the chart.~Reviewed interim history and current functioning. Reviewed vital signs,~Labs/ Radiology~and current medications noted below. Continue current treatment with the changes noted in the dictated addendum note Assessment: Vital Signs: Vital Signs Date Time Temp Pulse Resp B/P (MAP) Pulse Ox O2 Delivery O2 Flow Rate FiO2 03/09/17 16:34 98.5 66 20 128/73 (91) 94 03/08/17 20:50 Room Air I&O Intake and Output 03/10/17 07:00 Intake Total 600 ml Balance 600 ml Intake Oral 600 ml Current Medications: Meds: Current Medications Multi-Ingredient Ointment (Analgesic [place]) 1 delvis PRN QID PRN TP MUSCLE PAIN; Start 02/27/17 at 16:30 Al Hydroxide/Mg Hydroxide (Mylanta Plus Xs) 15 ml PRN AFTMEALHC PRN PO DYSPEPSIA; Start 02/27/17 at 16:30 Magnesium Hydroxide (Milk Of Magnesia) 2,400 mg PRN QHS PRN PO CONSTIPATION Last administered on 03/05/17 20:50; Start 02/27/17 at 16:30 Mirtazapine (Remeron) 15 mg QHS PO Last administered on 03/09/17 19:31; Start 02/27/17 at 21:00 Olanzapine (ZyPREXA) 5 mg BID PO Last administered on 02/28/17 09:59; Start at 21:00; Stop 02/28/17 at 19:18; Status DC Meclizine HCl (Antivert) 25 mg PRN TID PRN PO NAUSEA/ VOMITTING; Start at 16:45 Melatonin 3 mg PRN QHS PRN PO INSOMNIA Last administered on 03/08/17 20:04; Start 02/27/17 at 16:45 Info (FLU VACCINE per PROTOCOL) 1 ea 1X ONCE MC ; Start 02/27/17 at 18:15; Stop 02/27/17 at 18:16; Status UNV Influenza Virus Vaccine Quadrival (Fluarix Quad [id number] Syringe) 0.5 ml ONCE ONCE VAX IM Last administered on 02/28/17 12:19; Start 02/28/17 at 12:00; Stop 02/28/17 at 12:01; Status DC Olanzapine (ZyPREXA ZYDIS) 2.5 mg PRN Q2HR PRN PO PSYCHOSIS Last administered on 03/07/17 02:18; Start 02/27/17 at 19:00 Acetaminophen (Tylenol) 325 mg PRN Q6HRS PRN PO PAIN / TEMP; Start 02/28/17 at 07:15 Allopurinol (Zyloprim) 100 mg DAILY PO Last administered on 03/09/17 07:59; Start 02/28/17 at 09:00 Aspirin (Children'S Aspirin) 81 mg DAILY PO Last administered on 03/09/17 07: 59; Start 02/28/17 at 09:00 Famotidine (Pepcid) 20 mg BID PO Last administered on 03/09/17 19:32; Start at 09:00 Ferrous Sulfate (Feosol) 325 mg DAILYWLUN PO Last administered on 03/09/17 14: 50; Start 02/28/17 at 12:00 Hydralazine HCl (Apresoline) 10 mg PRN TID PRN PO HYPERTENSION, SEE COMMENTS; Start 02/28/17 at 07:15 Albuterol/ Ipratropium (Duoneb) 3 ml PRN Q4HRS PRN NEB SHORTNESS OF BREATH Last administered on 03/08/17 20:50; Start 02/28/17 at 07:15 Levofloxacin (Levaquin) 250 mg DAILY PO Last administered on 02/28/17 09:59; Start 02/28/17 at 09:00; Stop 02/28/17 at 13:16; Status DC Prednisone (Prednisone) 10 mg DAILY PO Last administered on 03/09/17 07:58; Start 02/28/17 at 09:00 Tramadol HCl (Ultram) 50 mg PRN Q6HRS PRN PO PAIN; Start 02/28/17 at 07:15 Vitamin B Complex 1 cap DAILYWLUN PO Last administered on 03/09/17 14:50; Start 02/28/17 at 12:00 Olanzapine (ZyPREXA) 2.5 mg BID PO Last administered on 03/02/17 08:46; Start 02/28/17 at 21:00; Stop 03/02/17 at 19:03; Status DC Sertraline HCl (Zoloft) 25 mg DAILY PO Last administered on 03/02/17 08:46; Start 03/01/17 at 09:00; Stop 03/02/17 at 19:03; Status DC Olanzapine (ZyPREXA) 2.5 mg HS PO Last administered on 03/04/17 20:26; Start 03/02/17 at 21:00; Stop 03/05/17 at 18:34; Status DC Citalopram Hydrobromide (CeleXA) 10 mg DAILY PO Last administered on 03/05/17 09:23; Start 03/03/17 at 09:00; Stop 03/05/17 at 10:00; Status DC Citalopram Hydrobromide (CeleXA) 20 mg DAILY PO Last administered on 03/09/17 07:58; Start 03/06/17 at 09:00 Dronabinol (Marinol) 2.5 mg DAILY PO Last administered on 03/09/17 08:01; Start 03/03/17 at 09:00 Quetiapine Fumarate (SEROquel) 12.5 mg 0900 PO Last administered on 03/07/17 09:50; Start 03/05/17 at 09:00; Stop 03/07/17 at 14:08; Status DC Quetiapine Fumarate (SEROquel) 12.5 mg BID@0900,1700 PO Last administered on 16:48; Start 03/07/17 at 17:00; Stop 03/07/17 at 19:18; Status DC Vitamin D (Vitamin D3) 50,000 unit WEEKLY PO Last administered on 03/07/17 16: 46; Start 03/07/17 at 18:00 Amoxicillin (Amoxil) 500 mg [id number] PO Last administered on 03/08/17 08:05; Start 03/07/17 at 21:00; Stop 03/08/17 at 13:45; Status DC Trazodone HCl (Desyrel) 50 mg PRN QHS PRN PO INSOMNIA, MAY REPEAT X1; Start at 19:00 Quetiapine Fumarate (SEROquel) 25 mg TID@0900,1300,1700 PO Last administered on 03/09/17 17:25; Start 03/08/17 at 09:00; Stop 03/09/17 at 18:51; Status DC Amoxicillin (Amoxil) 500 mg [id number] PO Last administered on 03/09/17 19:31; Start 03/08/17 at 14:00 Quetiapine Fumarate (SEROquel) 37.5 mg TID@0900,1300,1700 PO ; Start 03/10/17 at 09:00 Active Scripts Active Reported Tramadol Hcl (Tramadol HCl) 50 Mg Tablet 50 Mg PO PRN Q6HRS PRN Melatonin 3 Mg Tablet 3 Mg PO PRN QHS PRN Meclizine Hcl 25 Mg Tablet 25 Mg PO PRN TID PRN Hydralazine Hcl 10 Mg Tablet 10 Mg PO PRN TID PRN Duoneb 0.5-3(2.5) Mg/3 Ml (Albuterol/Ipratropium) 3 Ml Ampul.neb 3 Ml NEB PRN Q4HRS PRN Tylenol (Acetaminophen) 325 Mg Tablet 325 Mg PO PRN Q6HRS PRN B Complex (Vitamin B Complex) 1 Each Tablet 1 Each PO DAILYWLUN Prednisone 10 Mg Tablet 10 Mg PO DAILY Olanzapine 5 Mg Tablet 5 Mg PO BID Mirtazapine 15 Mg Tablet 15 Mg PO QHS Levofloxacin 500 Mg Tablet 250 Mg PO DAILY Ferrous Sulfate 325 Mg Tablet 325 Mg PO DAILYWLUN Famotidine 20 Mg Tablet 20 Mg PO BID Aspirin 81 Mg Tab.chew 81 Mg PO DAILY Allopurinol 100 Mg Tablet 100 Mg PO DAILY Diagnosis: Problems: (1) Dementia (2) Leukocytosis (3) Anxiety disorder (4) Dementia, vascular, with depression (5) Dementia, vascular, with delusions (6) Dementia in Alzheimer's disease with depression (7) Dementia in Alzheimer's disease with delusions (8) Impulse control disorder AARON DUNN MD Mar 09, 2017 22:24
--- NOTE | 2017-03-10 03:46 | NUR ---
Behavior Intervention Response and Plan: BIRP Note: Behavior: Assumed Care of patient, patient located in Day Room at shift change. Patient exhibited the following behavior Calm, Compliant, Withdrawn. Brief assessment on rounds of vital signs, medication needs, lab studies, and pain. Treatment plan problems . Intervention: Patient assessed and the following interventions initiated safety checks 15 Minute Checks Cognitive Assessment , Head to toe Assessment , Medications. Response: After interactions and interventions patient responded in the following manner, Calm , Compliant ,Anxious. Continue to assess behaviors and condition will continue to monitor throughout the shift as needed. Patient educated on ADL's, and hand hygiene. Plan: Continue to monitor Master Treatment Plan for patient's progress toward short term goals of Decreased Anxiety, Medication Compliance, supervisor intermediates goals to return to previous living setting vs placement. Continue to assess patient for changes in above assessment. Monitor for medication needs, pain, and safety concerns. Hourly rounding performed to ensure safe environment.
[2017-03-10 06:12] VITALS: BP 160/78
[2017-03-10] MEDS: DRONABINOL 2.5 MG CAPSULE PO SCH (08:38)
[2017-03-10] MEDS: ALLOPURINOL 100 MG TABLET. PO SCH (08:38)
[2017-03-10] MEDS: predniSONE 10 MG TABLET PO SCH (08:38)
[2017-03-10] MEDS: VITAMIN B COMPLEX CAPSULE. PO SCH (08:38)
[2017-03-10] MEDS: ASPIRIN 81 MG TAB.CHEW PO SCH (08:38)
[2017-03-10] MEDS: FAMOTIDINE 20 MG TABLET PO SCH ×2 (08:38→19:43)
[2017-03-10] MEDS: FERROUS SULFATE 325 MG TABLET. PO SCH (08:38)
[2017-03-10] MEDS: AMOXICILLIN 250 MG CAPSULE PO SCH ×3 (08:39→19:43)
[2017-03-10] MEDS: CITALOPRAM 20 MG TABLET. PO SCH (08:39)
[2017-03-10] MEDS: QUEtiapine 25 MG TABLET. PO SCH ×3 (08:39→17:59)
--- NOTE | 2017-03-10 09:30 | NUR ---
Behavior Intervention Response and Plan: BIRP Note: Behavior: Assumed Care of patient, patient located in Day Room at shift change. Patient exhibited the following behavior , , Disorganized. Brief assessment on rounds of vital signs, medication needs, lab studies, and pain. Treatment plan problems . Intervention: Patient assessed and the following interventions initiated safety checks 15 Minute Checks Head to toe Assessment , Cognitive Assessment , Head to toe Assessment. Response: After interactions and interventions patient responded in the following manner, Able to Focus on Task , Cooperative ,Compliant. Continue to assess behaviors and condition will continue to monitor throughout the shift as needed. Patient educated on ADL's, and hand hygiene. 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 Continue to assess patient for changes in above assessment. Monitor for medication needs, pain, and safety concerns. Hourly rounding performed to ensure safe environment.
--- NOTE | 2017-03-10 10:15 | PN ---
DATE: 03/08/2017 This late entry 03/08/2017 covers elements not covered in my initial note of 03/08/2017. SUBJECTIVE: I met with the patient the evening of 03/08/2017. The patient was staffed at a treatment team meeting morning of 03/08/2017 reviewed his history, diagnosis, progress, current psychotropics placement options. The patient has been somewhat resistive to treatment, drowsy at times, calmer in the morning, gets a little more agitated in the evening. Appetite is fair, sleeping well, swallow study has been done. Plan is for him to go to up for rehab post-discharge. REVIEW OF SYSTEMS: Ambulation impaired, in wheelchair. No CV, , pulmonary, eye, ENT system symptoms on review, reliability poor, not very verbal. MENTAL STATUS EXAM: Oriented to himself. Insight, judgment, recent and remote memory, attention, concentration, fund of knowledge poor, consistent with his diagnosis mentioned in my initial note. PLAN: Continue current psychotropics, review drug interactions, risk/benefit ratio favors no further change. If agitation and mood lability persists, we may have to increase the Seroquel. AARON DUNN MD DR: IDANIA/herlinda JOB#: [id number] / [id number]
[2017-03-10 17:17] VITALS: BP 133/74
[2017-03-10] MEDS: MIRTAZAPINE 15 MG TABLET PO SCH (19:43)
--- NOTE | 2017-03-10 20:28 | NUR ---
SW weekly note Pt. will dc to [facility] in [place], as arranged by family, before moving to reside w/son in [place]. SW will follow up w/Pt's dtr/DPOA early next week to ensure dc plans to [facility] are in place. Pt. continues to be agitated and aggressive w/staff at times. Medication crushed in pudding as Pt. has difficulty w/swallowing.
--- NOTE | 2017-03-10 22:15 | NUR ---
Behavior Intervention Response and Plan: BIRP Note: Behavior: Assumed Care of patient, patient located in Day Room at shift change. Patient exhibited the following behavior Interactive, , Calm. Brief assessment on rounds of vital signs, medication needs, lab studies, and pain. Treatment plan problems:1-2 Intervention: Patient assessed and the following interventions initiated safety checks 15 Minute Checks Cognitive Assessment , Head to toe Assessment , Medications. Response: After interactions and interventions patient responded in the following manner, Disorganized , Able to Focus on Task ,Compliant. Continue to assess behaviors and condition will continue to monitor throughout the shift as needed. Patient educated on ADL's, and hand hygiene. 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 Continue to assess patient for changes in above assessment. Monitor for medication needs, pain, and safety concerns. Hourly rounding performed to ensure safe environment.
--- NOTE | 2017-03-10 23:08 | PDOC ---
Exam Hector Demential Exam: Hector Note: Please also refer to the separate dictated note~for this date of service dictated separately.~Patient seen individually. Discussed the patient with Nursing staff reviewed the chart.~Reviewed interim history and current functioning. Reviewed vital signs,~Labs/ Radiology~and current medications noted below. Continue current treatment with the changes noted in the dictated addendum note Assessment: Vital Signs: Vital Signs Date Time Temp Pulse Resp B/P (MAP) Pulse Ox O2 Delivery O2 Flow Rate FiO2 03/10/17 17:17 97.4 73 16 133/74 (93) 94 03/08/17 20:50 Room Air I&O Intake and Output 03/11/17 07:00 Intake Total 1200 ml Balance 1200 ml Intake Oral 1200 ml Current Medications: Meds: Current Medications Multi-Ingredient Ointment (Analgesic [place]) 1 delvis PRN QID PRN TP MUSCLE PAIN; Start 02/27/17 at 16:30 Al Hydroxide/Mg Hydroxide (Mylanta Plus Xs) 15 ml PRN AFTMEALHC PRN PO DYSPEPSIA; Start 02/27/17 at 16:30 Magnesium Hydroxide (Milk Of Magnesia) 2,400 mg PRN QHS PRN PO CONSTIPATION Last administered on 03/05/17 20:50; Start 02/27/17 at 16:30 Mirtazapine (Remeron) 15 mg QHS PO Last administered on 03/10/17 19:43; Start 02/27/17 at 21:00 Olanzapine (ZyPREXA) 5 mg BID PO Last administered on 02/28/17 09:59; Start at 21:00; Stop 02/28/17 at 19:18; Status DC Meclizine HCl (Antivert) 25 mg PRN TID PRN PO NAUSEA/ VOMITTING; Start at 16:45 Melatonin 3 mg PRN QHS PRN PO INSOMNIA Last administered on 03/08/17 20:04; Start 02/27/17 at 16:45 Info (FLU VACCINE per PROTOCOL) 1 ea 1X ONCE MC ; Start 02/27/17 at 18:15; Stop 02/27/17 at 18:16; Status UNV Influenza Virus Vaccine Quadrival (Fluarix Quad [id number] Syringe) 0.5 ml ONCE ONCE VAX IM Last administered on 02/28/17 12:19; Start 02/28/17 at 12:00; Stop 02/28/17 at 12:01; Status DC Olanzapine (ZyPREXA ZYDIS) 2.5 mg PRN Q2HR PRN PO PSYCHOSIS Last administered on 03/07/17 02:18; Start 02/27/17 at 19:00 Acetaminophen (Tylenol) 325 mg PRN Q6HRS PRN PO PAIN / TEMP; Start 02/28/17 at 07:15 Allopurinol (Zyloprim) 100 mg DAILY PO Last administered on 03/10/17 08:38; Start 02/28/17 at 09:00 Aspirin (Children'S Aspirin) 81 mg DAILY PO Last administered on 03/10/17 08: 38; Start 02/28/17 at 09:00 Famotidine (Pepcid) 20 mg BID PO Last administered on 03/10/17 19:43; Start at 09:00 Ferrous Sulfate (Feosol) 325 mg DAILYWLUN PO Last administered on 03/10/17 08: 38; Start 02/28/17 at 12:00 Hydralazine HCl (Apresoline) 10 mg PRN TID PRN PO HYPERTENSION, SEE COMMENTS; Start 02/28/17 at 07:15 Albuterol/ Ipratropium (Duoneb) 3 ml PRN Q4HRS PRN NEB SHORTNESS OF BREATH Last administered on 03/08/17 20:50; Start 02/28/17 at 07:15 Levofloxacin (Levaquin) 250 mg DAILY PO Last administered on 02/28/17 09:59; Start 02/28/17 at 09:00; Stop 02/28/17 at 13:16; Status DC Prednisone (Prednisone) 10 mg DAILY PO Last administered on 03/10/17 08:38; Start 02/28/17 at 09:00 Tramadol HCl (Ultram) 50 mg PRN Q6HRS PRN PO PAIN; Start 02/28/17 at 07:15 Vitamin B Complex 1 cap DAILYWLUN PO Last administered on 03/10/17 08:38; Start 02/28/17 at 12:00 Olanzapine (ZyPREXA) 2.5 mg BID PO Last administered on 03/02/17 08:46; Start 02/28/17 at 21:00; Stop 03/02/17 at 19:03; Status DC Sertraline HCl (Zoloft) 25 mg DAILY PO Last administered on 03/02/17 08:46; Start 03/01/17 at 09:00; Stop 03/02/17 at 19:03; Status DC Olanzapine (ZyPREXA) 2.5 mg HS PO Last administered on 03/04/17 20:26; Start 03/02/17 at 21:00; Stop 03/05/17 at 18:34; Status DC Citalopram Hydrobromide (CeleXA) 10 mg DAILY PO Last administered on 03/05/17 09:23; Start 03/03/17 at 09:00; Stop 03/05/17 at 10:00; Status DC Citalopram Hydrobromide (CeleXA) 20 mg DAILY PO Last administered on 03/10/17 08:39; Start 03/06/17 at 09:00 Dronabinol (Marinol) 2.5 mg DAILY PO Last administered on 03/10/17 08:38; Start 03/03/17 at 09:00 Quetiapine Fumarate (SEROquel) 12.5 mg 0900 PO Last administered on 03/07/17 09:50; Start 03/05/17 at 09:00; Stop 03/07/17 at 14:08; Status DC Quetiapine Fumarate (SEROquel) 12.5 mg BID@0900,1700 PO Last administered on 16:48; Start 03/07/17 at 17:00; Stop 03/07/17 at 19:18; Status DC Vitamin D (Vitamin D3) 50,000 unit WEEKLY PO Last administered on 03/07/17 16: 46; Start 03/07/17 at 18:00 Amoxicillin (Amoxil) 500 mg [id number] PO Last administered on 03/08/17 08:05; Start 03/07/17 at 21:00; Stop 03/08/17 at 13:45; Status DC Trazodone HCl (Desyrel) 50 mg PRN QHS PRN PO INSOMNIA, MAY REPEAT X1; Start at 19:00 Quetiapine Fumarate (SEROquel) 25 mg TID@0900,1300,1700 PO Last administered on 03/09/17 17:25; Start 03/08/17 at 09:00; Stop 03/09/17 at 18:51; Status DC Amoxicillin (Amoxil) 500 mg [id number] PO Last administered on 03/10/17 19:43; Start 03/08/17 at 14:00 Quetiapine Fumarate (SEROquel) 37.5 mg TID@0900,1300,1700 PO Last administered on 03/10/17 17:59; Start 03/10/17 at 09:00 Active Scripts Active Reported Tramadol Hcl (Tramadol HCl) 50 Mg Tablet 50 Mg PO PRN Q6HRS PRN Melatonin 3 Mg Tablet 3 Mg PO PRN QHS PRN Meclizine Hcl 25 Mg Tablet 25 Mg PO PRN TID PRN Hydralazine Hcl 10 Mg Tablet 10 Mg PO PRN TID PRN Duoneb 0.5-3(2.5) Mg/3 Ml (Albuterol/Ipratropium) 3 Ml Ampul.neb 3 Ml NEB PRN Q4HRS PRN Tylenol (Acetaminophen) 325 Mg Tablet 325 Mg PO PRN Q6HRS PRN B Complex (Vitamin B Complex) 1 Each Tablet 1 Each PO DAILYWLUN Prednisone 10 Mg Tablet 10 Mg PO DAILY Olanzapine 5 Mg Tablet 5 Mg PO BID Mirtazapine 15 Mg Tablet 15 Mg PO QHS Levofloxacin 500 Mg Tablet 250 Mg PO DAILY Ferrous Sulfate 325 Mg Tablet 325 Mg PO DAILYWLUN Famotidine 20 Mg Tablet 20 Mg PO BID Aspirin 81 Mg Tab.chew 81 Mg PO DAILY Allopurinol 100 Mg Tablet 100 Mg PO DAILY Diagnosis: Problems: (1) Dementia (2) Anxiety disorder (3) Dementia, vascular, with depression (4) Dementia, vascular, with delusions (5) Dementia in Alzheimer's disease with depression (6) Dementia in Alzheimer's disease with delusions (7) Impulse control disorder AARON DUNN MD Mar 10, 2017 23:08
--- NOTE | 2017-03-11 02:32 | PN ---
DATE: 03/09/2017 This late entry 03/09/2017 covers elements not covered in my initial note of 03/09/2017. SUBJECTIVE: I met with the patient in the evening of 03/09/2017. The patient slept 6-3/4 hours the previous evening. Appetite is fair, agitated morning of 03/09/2017, threw a blanket kit to nursing staff and made a threat to the nursing staff "I'll turn you into minced meat" refusing his medications. REVIEW OF SYSTEMS: Ambulation impaired, in a wheelchair. No CV, , pulmonary, eye, ENT system symptoms on review. MENTAL STATUS EXAM: Oriented to himself, pleasant with me evening of 03/09/2017, smiling, oblivious of his surroundings. Insight, judgment, recent and remote memory, attention, concentration, fund of knowledge poor, consistent with his diagnosis mentioned in my initial note. LABORATORIES: Reviewed. IMPRESSION: Unchanged from initial note. PLAN: Continue current psychotropics, Seroquel is 25 mg t.i.d. and we will increase to 37.5 mg 3 times a day. Review drug interactions, risk/benefit ratio favors no further change. AARON DUNN MD DR: IDANIA/herlinda JOB#: [id number] / [id number]
[2017-03-11 06:18] VITALS: BP 154/64
[2017-03-11 07:27] LABS: HEMATOCRIT 33.5 % (39.0-53.0); RED BLOOD COUNT 3.84 x10^6/uL (4.30-5.70); RED CELL DISTRIBUTION WIDTH 15.2 % (11.5-14.5); WHITE BLOOD COUNT 18.5 x10^3/uL (4.0-11.0)
[2017-03-11 07:43] LABS: ALBUMIN 3.1 g/dL (3.4-5.0); ALBUMIN/GLOBULIN RATIO 0.8 (1.0-1.7); CALCIUM 9.1 mg/dL (8.5-10.1); CREATININE 1.1 mg/dL (0.7-1.3); GFR 63.9; POTASSIUM 3.9 mmol/L (3.5-5.1); TOTAL BILIRUBIN 0.5 mg/dL (0.2-1.0); TOTAL PROTEIN 6.9 g/dL (6.4-8.2)
[2017-03-11] MEDS: ALLOPURINOL 100 MG TABLET. PO SCH (08:28)
[2017-03-11] MEDS: predniSONE 10 MG TABLET PO SCH (08:28)
[2017-03-11] MEDS: AMOXICILLIN 250 MG CAPSULE PO SCH ×3 (08:28→19:39)
[2017-03-11] MEDS: CITALOPRAM 20 MG TABLET. PO SCH (08:28)
[2017-03-11] MEDS: FAMOTIDINE 20 MG TABLET PO SCH ×2 (08:28→19:39)
[2017-03-11] MEDS: QUEtiapine 25 MG TABLET. PO SCH ×3 (08:29→17:51)
[2017-03-11] MEDS: ASPIRIN 81 MG TAB.CHEW PO SCH (08:29)
[2017-03-11] MEDS: DRONABINOL 2.5 MG CAPSULE PO SCH (08:29)
[2017-03-11] MEDS: FERROUS SULFATE 325 MG TABLET. PO SCH (08:32)
[2017-03-11] MEDS: VITAMIN B COMPLEX CAPSULE. PO SCH (08:32)
--- NOTE | 2017-03-11 09:00 | NUR ---
Behavior Intervention Response and Plan: BIRP Note: Behavior: Assumed Care of patient, patient located in Hallway at shift change. Patient exhibited the following behavior Restless, Disorganized, Cooperative. Brief assessment on rounds of vital signs, medication needs, lab studies, and pain. Treatment plan problems . Intervention: Patient assessed and the following interventions initiated safety checks 15 Minute Checks Head to toe Assessment , Cognitive Assessment , Medications. Response: After interactions and interventions patient responded in the following manner, Restless , Disorganized ,Sarcastic. Continue to assess behaviors and condition will continue to monitor throughout the shift as needed. Patient educated on ADL's, and hand hygiene. Plan: Continue to monitor Master Treatment Plan for patient's progress toward short term goals of Improved Mood, Decreased Anxiety, detention goals to return to previous living setting vs placement. Continue to assess patient for changes in above assessment. Monitor for medication needs, pain, and safety concerns. Hourly rounding performed to ensure safe environment.
[2017-03-11] MEDS: MAGNESIUM HYDROXIDE 2,400 MG/30 ML ORAL.SUSP. PO PRN (13:17)
[2017-03-11 16:41] VITALS: BP 138/81
[2017-03-11] MEDS: MIRTAZAPINE 15 MG TABLET PO SCH (19:39)
--- NOTE | 2017-03-11 21:22 | PDOC ---
Exam Hector Demential Exam: Hector Note: Please also refer to the separate dictated note~for this date of service dictated separately.~Patient seen individually. Discussed the patient with Nursing staff reviewed the chart.~Reviewed interim history and current functioning. Reviewed vital signs,~Labs/ Radiology~and current medications noted below. Continue current treatment with the changes noted in the dictated addendum note Assessment: Vital Signs: Vital Signs Date Time Temp Pulse Resp B/P (MAP) Pulse Ox O2 Delivery O2 Flow Rate FiO2 03/11/17 16:41 97.8 68 16 138/81 (100) 96 03/11/17 06:18 Room Air I&O Intake and Output 03/12/17 07:00 Intake Total 1560 ml Balance 1560 ml Intake Oral 1560 ml Labs: Laboratory Tests Test 03/11/17 06:33 White Blood Count 18.5 x10^3/uL (4.0-11.0) H Red Blood Count 3.84 x10^6/uL (4.30-5.70) L Hemoglobin 11.0 g/dL (13.0-17.5) L Hematocrit 33.5 % (39.0-53.0) L Mean Corpuscular Volume 87 fL (79-100) Mean Corpuscular Hemoglobin 29 pg (25-35) Mean Corpuscular Hemoglobin Concent 33 g/dL (31-37) Red Cell Distribution Width 15.2 % (11.5-14.5) H Platelet Count 280 x10^3/uL (140-400) Sodium Level 138 mmol/L (136-145) Potassium Level 3.9 mmol/L (3.5-5.1) Chloride Level 103 mmol/L (98-107) Carbon Dioxide Level 29 mmol/L (21-32) Anion Gap 6 (6-14) Blood Urea Nitrogen 38 mg/dL (8-26) H Creatinine 1.1 mg/dL (0.7-1.3) Estimated GFR (Cockcroft-Gault) 63.9 BUN/Creatinine Ratio 35 (6-20) H Glucose Level 84 mg/dL (70-99) Calcium Level 9.1 mg/dL (8.5-10.1) Total Bilirubin 0.5 mg/dL (0.2-1.0) Aspartate Amino Transferase (AST) 22 U/L (15-37) Alanine Aminotransferase (ALT) 38 U/L (16-63) Alkaline Phosphatase 126 U/L (46-116) H Total Protein 6.9 g/dL (6.4-8.2) Albumin 3.1 g/dL (3.4-5.0) L Albumin/Globulin Ratio 0.8 (1.0-1.7) L Current Medications: Meds: Current Medications Multi-Ingredient Ointment (Analgesic [place]) 1 delvis PRN QID PRN TP MUSCLE PAIN; Start 02/27/17 at 16:30 Al Hydroxide/Mg Hydroxide (Mylanta Plus Xs) 15 ml PRN AFTMEALHC PRN PO DYSPEPSIA; Start 02/27/17 at 16:30 Magnesium Hydroxide (Milk Of Magnesia) 2,400 mg PRN QHS PRN PO CONSTIPATION Last administered on 03/11/17 13:17; Start 02/27/17 at 16:30 Mirtazapine (Remeron) 15 mg QHS PO Last administered on 03/11/17 19:39; Start 02/27/17 at 21:00 Olanzapine (ZyPREXA) 5 mg BID PO Last administered on 02/28/17 09:59; Start at 21:00; Stop 02/28/17 at 19:18; Status DC Meclizine HCl (Antivert) 25 mg PRN TID PRN PO NAUSEA/ VOMITTING; Start at 16:45 Melatonin 3 mg PRN QHS PRN PO INSOMNIA Last administered on 03/08/17 20:04; Start 02/27/17 at 16:45 Info (FLU VACCINE per PROTOCOL) 1 ea 1X ONCE MC ; Start 02/27/17 at 18:15; Stop 02/27/17 at 18:16; Status UNV Influenza Virus Vaccine Quadrival (Fluarix Quad [id number] Syringe) 0.5 ml ONCE ONCE VAX IM Last administered on 02/28/17 12:19; Start 02/28/17 at 12:00; Stop 02/28/17 at 12:01; Status DC Olanzapine (ZyPREXA ZYDIS) 2.5 mg PRN Q2HR PRN PO PSYCHOSIS Last administered on 03/07/17 02:18; Start 02/27/17 at 19:00 Acetaminophen (Tylenol) 325 mg PRN Q6HRS PRN PO PAIN / TEMP; Start 02/28/17 at 07:15 Allopurinol (Zyloprim) 100 mg DAILY PO Last administered on 03/11/17 08:28; Start 02/28/17 at 09:00 Aspirin (Children'S Aspirin) 81 mg DAILY PO Last administered on 03/11/17 08: 29; Start 02/28/17 at 09:00 Famotidine (Pepcid) 20 mg BID PO Last administered on 03/11/17 19:39; Start at 09:00 Ferrous Sulfate (Feosol) 325 mg DAILYWLUN PO Last administered on 03/11/17 08: 32; Start 02/28/17 at 12:00 Hydralazine HCl (Apresoline) 10 mg PRN TID PRN PO HYPERTENSION, SEE COMMENTS; Start 02/28/17 at 07:15 Albuterol/ Ipratropium (Duoneb) 3 ml PRN Q4HRS PRN NEB SHORTNESS OF BREATH Last administered on 03/08/17 20:50; Start 02/28/17 at 07:15 Levofloxacin (Levaquin) 250 mg DAILY PO Last administered on 02/28/17 09:59; Start 02/28/17 at 09:00; Stop 02/28/17 at 13:16; Status DC Prednisone (Prednisone) 10 mg DAILY PO Last administered on 03/11/17 08:28; Start 02/28/17 at 09:00 Tramadol HCl (Ultram) 50 mg PRN Q6HRS PRN PO PAIN; Start 02/28/17 at 07:15 Vitamin B Complex 1 cap DAILYWLUN PO Last administered on 03/11/17 08:32; Start 02/28/17 at 12:00 Olanzapine (ZyPREXA) 2.5 mg BID PO Last administered on 03/02/17 08:46; Start 02/28/17 at 21:00; Stop 03/02/17 at 19:03; Status DC Sertraline HCl (Zoloft) 25 mg DAILY PO Last administered on 03/02/17 08:46; Start 03/01/17 at 09:00; Stop 03/02/17 at 19:03; Status DC Olanzapine (ZyPREXA) 2.5 mg HS PO Last administered on 03/04/17 20:26; Start 03/02/17 at 21:00; Stop 03/05/17 at 18:34; Status DC Citalopram Hydrobromide (CeleXA) 10 mg DAILY PO Last administered on 03/05/17 09:23; Start 03/03/17 at 09:00; Stop 03/05/17 at 10:00; Status DC Citalopram Hydrobromide (CeleXA) 20 mg DAILY PO Last administered on 03/11/17 08:28; Start 03/06/17 at 09:00 Dronabinol (Marinol) 2.5 mg DAILY PO Last administered on 03/11/17 08:29; Start 03/03/17 at 09:00 Quetiapine Fumarate (SEROquel) 12.5 mg 0900 PO Last administered on 03/07/17 09:50; Start 03/05/17 at 09:00; Stop 03/07/17 at 14:08; Status DC Quetiapine Fumarate (SEROquel) 12.5 mg BID@0900,1700 PO Last administered on 16:48; Start 03/07/17 at 17:00; Stop 03/07/17 at 19:18; Status DC Vitamin D (Vitamin D3) 50,000 unit WEEKLY PO Last administered on 03/07/17 16: 46; Start 03/07/17 at 18:00 Amoxicillin (Amoxil) 500 mg [id number] PO Last administered on 03/08/17 08:05; Start 03/07/17 at 21:00; Stop 03/08/17 at 13:45; Status DC Trazodone HCl (Desyrel) 50 mg PRN QHS PRN PO INSOMNIA, OCTOBER REPEAT X1; Start at 19:00 Quetiapine Fumarate (SEROquel) 25 mg TID@0900,1300,1700 PO Last administered on 03/09/17 17:25; Start 03/08/17 at 09:00; Stop 03/09/17 at 18:51; Status DC Amoxicillin (Amoxil) 500 mg [id number] PO Last administered on 03/11/17 19:39; Start 03/08/17 at 14:00 Quetiapine Fumarate (SEROquel) 37.5 mg TID@0900,1300,1700 PO Last administered on 03/11/17t 17:51; Start 03/10/17 at 09:00 Active Scripts Active Reported Tramadol Hcl (Tramadol HCl) 50 Mg Tablet 50 Mg PO PRN Q6HRS PRN Melatonin 3 Mg Tablet 3 Mg PO PRN QHS PRN Meclizine Hcl 25 Mg Tablet 25 Mg PO PRN TID PRN Hydralazine Hcl 10 Mg Tablet 10 Mg PO PRN TID PRN Duoneb 0.5-3(2.5) Mg/3 Ml (Albuterol/Ipratropium) 3 Ml Ampul.neb 3 Ml NEB PRN Q4HRS PRN Tylenol (Acetaminophen) 325 Mg Tablet 325 Mg PO PRN Q6HRS PRN B Complex (Vitamin B Complex) 1 Each Tablet 1 Each PO DAILYWLUN Prednisone 10 Mg Tablet 10 Mg PO DAILY Olanzapine 5 Mg Tablet 5 Mg PO BID Mirtazapine 15 Mg Tablet 15 Mg PO QHS Levofloxacin 500 Mg Tablet 250 Mg PO DAILY Ferrous Sulfate 325 Mg Tablet 325 Mg PO DAILYWLUN Famotidine 20 Mg Tablet 20 Mg PO BID Aspirin 81 Mg Tab.chew 81 Mg PO DAILY Allopurinol 100 Mg Tablet 100 Mg PO DAILY Diagnosis: Problems: (1) Dementia (2) Leukocytosis (3) Anxiety disorder (4) Dementia, vascular, with depression (5) Dementia, vascular, with delusions (6) Dementia in Alzheimer's disease with depression (7) Dementia in Alzheimer's disease with delusions (8) Impulse control disorder AARON DUNN MD Mar 11, 2017 21:22
--- NOTE | 2017-03-11 21:56 | NUR ---
Behavior Intervention Response and Plan: BIRP Note: Behavior: Assumed Care of patient, patient located in Day Room at shift change. Patient exhibited the following behavior Interactive, Able to Focus on Task, Restless. Brief assessment on rounds of vital signs, medication needs, lab studies, and pain. Treatment plan problems:1-2 Intervention: Patient assessed and the following interventions initiated safety checks 15 Minute Checks Cognitive Assessment , Head to toe Assessment , Medications. Response: After interactions and interventions patient responded in the following manner, Cooperative , Able to Focus on Task ,Interactive. Continue to assess behaviors and condition will continue to monitor throughout the shift as needed. Patient educated on ADL's, and hand hygiene. Plan: Continue to monitor Master Treatment Plan for patient's progress toward short term goals of Decreased Agitation, Decreased Aggression, half-way goals to return to previous living setting vs placement. Continue to assess patient for changes in above assessment. Monitor for medication needs, pain, and safety concerns. Hourly rounding performed to ensure safe environment.
--- NOTE | 2017-03-12 05:05 | PN ---
DATE: 03/10/2017 This late entry 03/10/2017 covers elements not covered in my initial note of 03/10/2017. SUBJECTIVE: I met with the patient in the evening of 03/10/2017. The patient has been anxious, hitting his wheelchair into the chong in the hallway all day, busy compliant with medications and assessment is confused. REVIEW OF SYSTEMS: Ambulation impaired, in a wheelchair. No CV, , pulmonary, eye, ENT system symptoms on review. Reliability poor. MENTAL STATUS EXAM: Oriented to himself. Insight, judgment, recent and remote memory, attention, concentration, fund of knowledge poor, consistent with his diagnosis mentioned in my initial note. PLAN: Continue current psychotropics. Review drug interactions, risk/benefit ratio favors no further change. Seroquel was increased to mg t.i.d. on 03/10/2017 and we will see how he does with this before making any further changes, review drug interactions carefully. AARON DUNN MD DR: IDANIA/herlinda JOB#: [id number] / [id number]
[2017-03-12 06:02] VITALS: BP 131/69
[2017-03-12] MEDS: AMOXICILLIN 250 MG CAPSULE PO SCH ×3 (08:22→20:24)
[2017-03-12] MEDS: CITALOPRAM 20 MG TABLET. PO SCH (08:23)
[2017-03-12] MEDS: QUEtiapine 25 MG TABLET. PO SCH ×3 (08:23→17:21)
[2017-03-12] MEDS: predniSONE 10 MG TABLET PO SCH (08:23)
[2017-03-12] MEDS: ASPIRIN 81 MG TAB.CHEW PO SCH (08:23)
[2017-03-12] MEDS: ALLOPURINOL 100 MG TABLET. PO SCH (08:23)
[2017-03-12] MEDS: FAMOTIDINE 20 MG TABLET PO SCH ×2 (08:23→20:24)
[2017-03-12] MEDS: DRONABINOL 2.5 MG CAPSULE PO SCH (08:23)
--- NOTE | 2017-03-12 10:33 | NUR ---
Group Note [facility] Group Type Weekly Goals Start Time: 9:15am End Time: 9:50am Problem: Depression Purpose: Goal Setting, Cognitive stimulation, socialization, education/life skills Level of Participation: Moderate Behaviors or Symptoms Observed: Pt was engaged with group when prompted with direct questions. Interventions: Education Response: Pt presented thoughtful and relevant ideas during group. Pt left group mid-way with nursing staff, but returned soon after. Plan: Group Participation Additional Comments:
--- NOTE | 2017-03-12 10:44 | NUR ---
Behavior Intervention Response and Plan: BIRP Note: Behavior: Assumed Care of patient, patient located in Day Room at shift change. Patient exhibited the following behavior Interactive, Able to Focus on Task, confused, cooperative, compliant. Brief assessment on rounds of vital signs, medication needs, lab studies, and pain. Treatment plan problems:1-2 Intervention: Patient assessed and the following interventions initiated safety checks 15 Minute Checks Cognitive Assessment , Head to toe Assessment , Medications. Response: After interactions and interventions patient responded in the following manner, Cooperative, confused, compliant, Able to Focus on Task ,Interactive. Continue to assess behaviors and condition will continue to monitor throughout the shift as needed. Patient educated on ADL's, and hand hygiene. Plan: Continue to monitor Master Treatment Plan for patient's progress toward short term goals of Decreased Agitation, Decreased Aggression, custodial goals to return to previous living setting vs placement. Continue to assess patient for changes in above assessment. Monitor for medication needs, pain, and safety concerns. Hourly rounding performed to ensure safe environment.
[2017-03-12] MEDS: VITAMIN B COMPLEX CAPSULE. PO SCH (13:10)
[2017-03-12] MEDS: FERROUS SULFATE 325 MG TABLET. PO SCH (13:10)
[2017-03-12 16:51] VITALS: BP 156/71
[2017-03-12] MEDS: MAGNESIUM HYDROXIDE 2,400 MG/30 ML ORAL.SUSP. PO PRN (20:23)
[2017-03-12] MEDS: MIRTAZAPINE 15 MG TABLET PO SCH (20:24)
[2017-03-12] MEDS: MELATONIN 3 MG TABLET PO PRN (20:24)
--- NOTE | 2017-03-12 20:30 | NUR ---
Pt has not had documented BM since 03/06, BS hypoactive x4 quads, abdomen firm, pt denies tenderness at this time. PRN MOM administered as ordered for constipation. Pt also given PRN Melatonin for sleep as ordered.
--- NOTE | 2017-03-12 21:13 | PDOC ---
Exam Hector Demential Exam: Hector Note: Please also refer to the separate dictated note~for this date of service dictated separately.~Patient seen individually. Discussed the patient with Nursing staff reviewed the chart.~Reviewed interim history and current functioning. Reviewed vital signs,~Labs/ Radiology~and current medications noted below. Continue current treatment with the changes noted in the dictated addendum note Assessment: Vital Signs: Vital Signs Date Time Temp Pulse Resp B/P (MAP) Pulse Ox O2 Delivery O2 Flow Rate FiO2 03/12/17 16:51 97.0 76 18 156/71 (99) 94 03/11/17 06:18 Room Air I&O Intake and Output 03/13/17 07:00 Intake Total 1800 ml Balance 1800 ml Intake Oral 1800 ml Current Medications: Meds: Current Medications Multi-Ingredient Ointment (Analgesic [place]) 1 delvis PRN QID PRN TP MUSCLE PAIN; Start 02/27/17 at 16:30 Al Hydroxide/Mg Hydroxide (Mylanta Plus Xs) 15 ml PRN AFTMEALHC PRN PO DYSPEPSIA; Start 02/27/17 at 16:30 Magnesium Hydroxide (Milk Of Magnesia) 2,400 mg PRN QHS PRN PO CONSTIPATION Last administered on 03/12/17 20:23; Start 02/27/17 at 16:30 Mirtazapine (Remeron) 15 mg QHS PO Last administered on 03/12/17 20:24; Start 02/27/17 at 21:00 Olanzapine (ZyPREXA) 5 mg BID PO Last administered on 02/28/17 09:59; Start at 21:00; Stop 02/28/17 at 19:18; Status DC Meclizine HCl (Antivert) 25 mg PRN TID PRN PO NAUSEA/ VOMITTING; Start at 16:45 Melatonin 3 mg PRN QHS PRN PO INSOMNIA Last administered on 03/12/17 20:24; Start 02/27/17 at 16:45 Info (FLU VACCINE per PROTOCOL) 1 ea 1X ONCE MC ; Start 02/27/17 at 18:15; Stop 02/27/17 at 18:16; Status UNV Influenza Virus Vaccine Quadrival (Fluarix Quad [id number] Syringe) 0.5 ml ONCE ONCE VAX IM Last administered on 02/28/17 12:19; Start 02/28/17 at 12:00; Stop 02/28/17 at 12:01; Status DC Olanzapine (ZyPREXA ZYDIS) 2.5 mg PRN Q2HR PRN PO PSYCHOSIS Last administered on 03/07/17 02:18; Start 02/27/17 at 19:00 Acetaminophen (Tylenol) 325 mg PRN Q6HRS PRN PO PAIN / TEMP; Start 02/28/17 at 07:15 Allopurinol (Zyloprim) 100 mg DAILY PO Last administered on 03/12/17 08:23; Start 02/28/17 at 09:00 Aspirin (Children'S Aspirin) 81 mg DAILY PO Last administered on 03/12/17 08: 23; Start 02/28/17 at 09:00 Famotidine (Pepcid) 20 mg BID PO Last administered on 03/12/17 20:24; Start at 09:00 Ferrous Sulfate (Feosol) 325 mg DAILYWLUN PO Last administered on 03/12/17 13: 10; Start 02/28/17 at 12:00 Hydralazine HCl (Apresoline) 10 mg PRN TID PRN PO HYPERTENSION, SEE COMMENTS; Start 02/28/17 at 07:15 Albuterol/ Ipratropium (Duoneb) 3 ml PRN Q4HRS PRN NEB SHORTNESS OF BREATH Last administered on 03/08/17 20:50; Start 02/28/17 at 07:15 Levofloxacin (Levaquin) 250 mg DAILY PO Last administered on 02/28/17 09:59; Start 02/28/17 at 09:00; Stop 02/28/17 at 13:16; Status DC Prednisone (Prednisone) 10 mg DAILY PO Last administered on 03/12/17 08:23; Start 02/28/17 at 09:00 Tramadol HCl (Ultram) 50 mg PRN Q6HRS PRN PO PAIN; Start 02/28/17 at 07:15 Vitamin B Complex 1 cap DAILYWLUN PO Last administered on 03/12/17 13:10; Start 02/28/17 at 12:00 Olanzapine (ZyPREXA) 2.5 mg BID PO Last administered on 03/02/17 08:46; Start 02/28/17 at 21:00; Stop 03/02/17 at 19:03; Status DC Sertraline HCl (Zoloft) 25 mg DAILY PO Last administered on 03/02/17 08:46; Start 03/01/17 at 09:00; Stop 03/02/17 at 19:03; Status DC Olanzapine (ZyPREXA) 2.5 mg HS PO Last administered on 03/04/17 20:26; Start 03/02/17 at 21:00; Stop 03/05/17 at 18:34; Status DC Citalopram Hydrobromide (CeleXA) 10 mg DAILY PO Last administered on 03/05/17 09:23; Start 03/03/17 at 09:00; Stop 03/05/17 at 10:00; Status DC Citalopram Hydrobromide (CeleXA) 20 mg DAILY PO Last administered on 03/12/17 08:23; Start 03/06/17 at 09:00 Dronabinol (Marinol) 2.5 mg DAILY PO Last administered on 03/12/17 08:23; Start 03/03/17 at 09:00 Quetiapine Fumarate (SEROquel) 12.5 mg 0900 PO Last administered on 03/07/17 09:50; Start 03/05/17 at 09:00; Stop 03/07/17 at 14:08; Status DC Quetiapine Fumarate (SEROquel) 12.5 mg BID@0900,1700 PO Last administered on 16:48; Start 03/07/17 at 17:00; Stop 03/07/17 at 19:18; Status DC Vitamin D (Vitamin D3) 50,000 unit WEEKLY PO Last administered on 03/07/17 16: 46; Start 03/07/17 at 18:00 Amoxicillin (Amoxil) 500 mg [id number] PO Last administered on 03/08/17 08:05; Start 03/07/17 at 21:00; Stop 03/08/17 at 13:45; Status DC Trazodone HCl (Desyrel) 50 mg PRN QHS PRN PO INSOMNIA, MAY REPEAT X1; Start at 19:00 Quetiapine Fumarate (SEROquel) 25 mg TID@0900,1300,1700 PO Last administered on 03/09/17 17:25; Start 03/08/17 at 09:00; Stop 03/09/17 at 18:51; Status DC Amoxicillin (Amoxil) 500 mg [id number] PO Last administered on 03/12/17 20:24; Start 03/08/17 at 14:00 Quetiapine Fumarate (SEROquel) 37.5 mg TID@0900,1300,1700 PO Last administered on 03/12/17 17:21; Start 03/10/17 at 09:00 Active Scripts Active Reported Tramadol Hcl (Tramadol HCl) 50 Mg Tablet 50 Mg PO PRN Q6HRS PRN Melatonin 3 Mg Tablet 3 Mg PO PRN QHS PRN Meclizine Hcl 25 Mg Tablet 25 Mg PO PRN TID PRN Hydralazine Hcl 10 Mg Tablet 10 Mg PO PRN TID PRN Duoneb 0.5-3(2.5) Mg/3 Ml (Albuterol/Ipratropium) 3 Ml Ampul.neb 3 Ml NEB PRN Q4HRS PRN Tylenol (Acetaminophen) 325 Mg Tablet 325 Mg PO PRN Q6HRS PRN B Complex (Vitamin B Complex) 1 Each Tablet 1 Each PO DAILYWLUN Prednisone 10 Mg Tablet 10 Mg PO DAILY Olanzapine 5 Mg Tablet 5 Mg PO BID Mirtazapine 15 Mg Tablet 15 Mg PO QHS Levofloxacin 500 Mg Tablet 250 Mg PO DAILY Ferrous Sulfate 325 Mg Tablet 325 Mg PO DAILYWLUN Famotidine 20 Mg Tablet 20 Mg PO BID Aspirin 81 Mg Tab.chew 81 Mg PO DAILY Allopurinol 100 Mg Tablet 100 Mg PO DAILY Diagnosis: Problems: (1) Dementia (2) Anxiety disorder (3) Dementia, vascular, with depression (4) Dementia, vascular, with delusions (5) Dementia in Alzheimer's disease with depression (6) Dementia in Alzheimer's disease with delusions (7) Impulse control disorder AARON DUNN MD Mar 12, 2017 21:13
--- NOTE | 2017-03-12 22:40 | NUR ---
Behavior Intervention Response and Plan: BIRP Note: Behavior: Assumed Care of patient, patient located in Day Room at shift change. Patient exhibited the following behavior Calm, Disorganized, Cooperative. Brief assessment on rounds of vital signs, medication needs, lab studies, and pain. Treatment plan problems 1 and 2. Intervention: Patient assessed and the following interventions initiated safety checks 15 Minute Checks Cognitive Assessment , Head to toe Assessment , Medications. Response: After interactions and interventions patient responded in the following manner, Calm , Compliant ,Cooperative. Continue to assess behaviors and condition will continue to monitor throughout the shift as needed. Patient educated on ADL's, and hand hygiene. 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 Continue to assess patient for changes in above assessment. Monitor for medication needs, pain, and safety concerns. Hourly rounding performed to ensure safe environment.
--- NOTE | 2017-03-13 01:11 | NUR ---
Behavior Intervention Response and Plan: BIRP Note: Behavior: Assumed Care of patient, patient located in Day Room at shift change. Patient exhibited the following behavior Interactive, Calm, Compliant. Brief assessment on rounds of vital signs, medication needs, lab studies, and pain. Treatment plan problems . Intervention: Patient assessed and the following interventions initiated safety checks 15 Minute Checks Cognitive Assessment , Head to toe Assessment , Medications. Response: After interactions and interventions patient responded in the following manner, Social , Cooperative ,Interactive. Continue to assess behaviors and condition will continue to monitor throughout the shift as needed. Patient educated on ADL's, and hand hygiene. 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 Continue to assess patient for changes in above assessment. Monitor for medication needs, pain, and safety concerns. Hourly rounding performed to ensure safe environment.
--- NOTE | 2017-03-13 01:18 | PN ---
DATE: 03/11/2017 This late entry 03/11/2017 covers elements not covered in my initial note of 03/11/2017. SUBJECTIVE: I met with the patient evening of 03/11/2017. He slept 6-3/4 hours previous evening, not combative taking his medications, remains anxious, restless, dizzy, up and down the hallway in his wheelchair. We will check a CT head. Chest x-ray has a nodule, will defer this to Dr. Mckeon. REVIEW OF SYSTEMS: Ambulation impaired, in a wheelchair. No CV, , pulmonary, eye, ENT system symptoms on review. Reliability poor. MENTAL STATUS EXAM: Oriented to himself. Insight, judgment, recent and remote memory, attention, concentration, fund of knowledge poor, consistent with his diagnosis mentioned in my initial note. PLAN: Continue current psychotropics mentioned in my initial note. SUBJECTIVE: Overall, the patient is showing improvement. Review drug interactions, risk/benefit ratio favors no further change. MAN Colton DUNN MD DR: IDANIA/herlinda JOB#: [id number] / [id number]
[2017-03-13 05:57] VITALS: BP 160/83
[2017-03-13 06:56] LABS: BASO # 0.3 x10^3/uL (0.0-0.2); BASO % 2 % (0-3); EOS # 0.3 x10^3/uL (0.0-0.7); EOS % 2 % (0-3); HEMATOCRIT 35.4 % (39.0-53.0); HEMOGLOBIN 11.6 g/dL (13.0-17.5); LYMPH # 4.1 x10^3/uL (1.0-4.8); LYMPH % 23 % (24-48); MEAN CORPUSCULAR HEMOGLOBIN 29 pg (25-35); MEAN CORPUSCULAR HGB CONC 33 g/dL (31-37); MEAN CORPUSCULAR VOLUME 88 fL (79-100); MONO # 1.2 x10^3/uL (0.0-1.1); MONO % 7 % (0-9); NEUT # 11.9 x10^3uL (1.8-7.7); NEUT % 67 % (31-73); PLATELET COUNT 275 x10^3/uL (140-400); RED BLOOD COUNT 4.02 x10^6/uL (4.30-5.70); RED CELL DISTRIBUTION WIDTH 15.3 % (11.5-14.5); WHITE BLOOD COUNT 17.8 x10^3/uL (4.0-11.0)
[2017-03-13 07:07] LABS: ALBUMIN 3.3 g/dL (3.4-5.0); ALBUMIN/GLOBULIN RATIO 0.8 (1.0-1.7); CALCIUM 9.2 mg/dL (8.5-10.1); CREATININE 1.1 mg/dL (0.7-1.3); GFR 63.9; TOTAL BILIRUBIN 0.4 mg/dL (0.2-1.0); TOTAL PROTEIN 7.2 g/dL (6.4-8.2)
[2017-03-13] MEDS: CITALOPRAM 20 MG TABLET. PO SCH (08:05)
[2017-03-13] MEDS: predniSONE 10 MG TABLET PO SCH (08:05)
[2017-03-13] MEDS: ASPIRIN 81 MG TAB.CHEW PO SCH (08:05)
[2017-03-13] MEDS: AMOXICILLIN 250 MG CAPSULE PO SCH ×3 (08:05→19:52)
[2017-03-13] MEDS: ALLOPURINOL 100 MG TABLET. PO SCH (08:05)
[2017-03-13] MEDS: FAMOTIDINE 20 MG TABLET PO SCH ×2 (08:05→19:50)
[2017-03-13] MEDS: QUEtiapine 25 MG TABLET. PO SCH ×3 (08:06→17:03)
[2017-03-13] MEDS: DRONABINOL 2.5 MG CAPSULE PO SCH (08:07)
[2017-03-13 08:19] LABS: % BASOS 1 % (0-3); % EOS 1 % (0-5); % LYMPHS 27 % (24-48); % MONOS 7 % (0-10); % SEGS 64 % (35-66); PLATELET CLUMP PRESENT; PLT ESTIMATE ADEQUATE (ADEQUATE)
[2017-03-13 08:25] LABS: ANISOCYTOSIS SLIGHT; SCHISTOCYTES OCC; SPHEROCYTES OCC
--- NOTE | 2017-03-13 10:03 | NUR ---
Behavior Intervention Response and Plan: BIRP Note: Behavior: Assumed Care of patient, patient located in Dining Room at shift change. Patient exhibited the following behavior Calm, Disorganized, Compliant. Brief assessment on rounds of vital signs, medication needs, lab studies, and pain. Treatment plan problems 1-2. Intervention: Patient assessed and the following interventions initiated safety checks 15 Minute Checks Personal Alarm in place , Cognitive Assessment , Head to toe Assessment. Response: After interactions and interventions patient responded in the following manner, Calm , Disorganized ,Withdrawn. Continue to assess behaviors and condition will continue to monitor throughout the shift as needed. Patient educated on ADL's, and hand hygiene. 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 Continue to assess patient for changes in above assessment. Monitor for medication needs, pain, and safety concerns. Hourly rounding performed to ensure safe environment.
--- NOTE | 2017-03-13 10:30 | NUR ---
Discussed pt's labs with Dr. Park. No new orders received.
[2017-03-13] MEDS: VITAMIN B COMPLEX CAPSULE. PO SCH (12:07)
[2017-03-13] MEDS: FERROUS SULFATE 325 MG TABLET. PO SCH (12:07)
[2017-03-13 16:00] VITALS: BP 131/79
[2017-03-13] MEDS: MIRTAZAPINE 15 MG TABLET PO SCH (19:50)
--- NOTE | 2017-03-13 20:56 | PDOC ---
Exam Hector Demential Exam: Hector Note: Please also refer to the separate dictated note~for this date of service dictated separately.~Patient seen individually. Discussed the patient with Nursing staff reviewed the chart.~Reviewed interim history and current functioning. Reviewed vital signs,~Labs/ Radiology~and current medications noted below. Continue current treatment with the changes noted in the dictated addendum note Assessment: Vital Signs: Vital Signs Date Time Temp Pulse Resp B/P (MAP) Pulse Ox O2 Delivery O2 Flow Rate FiO2 03/13/17 16:00 97.2 75 20 131/79 (96) 96 03/13/17 05:57 Room Air I&O Intake and Output 03/14/17 07:00 Intake Total 1320 ml Balance 1320 ml Intake Oral 1320 ml Labs: Laboratory Tests Test 03/13/17 06:42 White Blood Count 17.8 x10^3/uL (4.0-11.0) H Red Blood Count 4.02 x10^6/uL (4.30-5.70) L Hemoglobin 11.6 g/dL (13.0-17.5) L Hematocrit 35.4 % (39.0-53.0) L Mean Corpuscular Volume 88 fL (79-100) Mean Corpuscular Hemoglobin 29 pg (25-35) Mean Corpuscular Hemoglobin Concent 33 g/dL (31-37) Red Cell Distribution Width 15.3 % (11.5-14.5) H Platelet Count 275 x10^3/uL (140-400) Neutrophils (%) (Auto) 67 % (31-73) Lymphocytes (%) (Auto) 23 % (24-48) L Monocytes (%) (Auto) 7 % (0-9) Eosinophils (%) (Auto) 2 % (0-3) Basophils (%) (Auto) 2 % (0-3) Neutrophils # (Auto) 11.9 x10^3uL (1.8-7.7) H Lymphocytes # (Auto) 4.1 x10^3/uL (1.0-4.8) Monocytes # (Auto) 1.2 x10^3/uL (0.0-1.1) H Eosinophils # (Auto) 0.3 x10^3/uL (0.0-0.7) Basophils # (Auto) 0.3 x10^3/uL (0.0-0.2) H Segmented Neutrophils % 64 % (35-66) Lymphocytes % 27 % (24-48) Monocytes % 7 % (0-10) Eosinophils % 1 % (0-5) Basophils % 1 % (0-3) Platelet Estimate Adequate (ADEQUATE) Platelet Clumps, EDTA Present Anisocytosis Slight Spherocytes Occ Schistocytes Occ Erythrocyte Sedimentation Rate 31 (0-15) H Sodium Level 140 mmol/L (136-145) Potassium Level 4.0 mmol/L (3.5-5.1) Chloride Level 103 mmol/L (98-107) Carbon Dioxide Level 31 mmol/L (21-32) Anion Gap 6 (6-14) Blood Urea Nitrogen 33 mg/dL (8-26) H Creatinine 1.1 mg/dL (0.7-1.3) Estimated GFR (Cockcroft-Gault) 63.9 BUN/Creatinine Ratio 30 (6-20) H Glucose Level 91 mg/dL (70-99) Calcium Level 9.2 mg/dL (8.5-10.1) Total Bilirubin 0.4 mg/dL (0.2-1.0) Aspartate Amino Transferase (AST) 27 U/L (15-37) Alanine Aminotransferase (ALT) 42 U/L (16-63) Alkaline Phosphatase 127 U/L (46-116) H Total Protein 7.2 g/dL (6.4-8.2) Albumin 3.3 g/dL (3.4-5.0) L Albumin/Globulin Ratio 0.8 (1.0-1.7) L Current Medications: Meds: Current Medications Multi-Ingredient Ointment (Analgesic [place]) 1 delvis PRN QID PRN TP MUSCLE PAIN; Start 02/27/17 at 16:30 Al Hydroxide/Mg Hydroxide (Mylanta Plus Xs) 15 ml PRN AFTMEALHC PRN PO DYSPEPSIA; Start 02/27/17 at 16:30 Magnesium Hydroxide (Milk Of Magnesia) 2,400 mg PRN QHS PRN PO CONSTIPATION Last administered on 03/12/17 20:23; Start 02/27/17 at 16:30 Mirtazapine (Remeron) 15 mg QHS PO Last administered on 03/13/17 19:50; Start 02/27/17 at 21:00 Olanzapine (ZyPREXA) 5 mg BID PO Last administered on 02/28/17 09:59; Start at 21:00; Stop 02/28/17 at 19:18; Status DC Meclizine HCl (Antivert) 25 mg PRN TID PRN PO NAUSEA/ VOMITTING; Start at 16:45 Melatonin 3 mg PRN QHS PRN PO INSOMNIA Last administered on 03/12/17 20:24; Start 02/27/17 at 16:45 Info (FLU VACCINE per PROTOCOL) 1 ea 1X ONCE MC ; Start 02/27/17 at 18:15; Stop 02/27/17 at 18:16; Status UNV Influenza Virus Vaccine Quadrival (Fluarix Quad [id number] Syringe) 0.5 ml ONCE ONCE VAX IM Last administered on 02/28/17 12:19; Start 02/28/17 at 12:00; Stop 02/28/17 at 12:01; Status DC Olanzapine (ZyPREXA ZYDIS) 2.5 mg PRN Q2HR PRN PO PSYCHOSIS Last administered on 03/07/17 02:18; Start 02/27/17 at 19:00 Acetaminophen (Tylenol) 325 mg PRN Q6HRS PRN PO PAIN / TEMP; Start 02/28/17 at 07:15 Allopurinol (Zyloprim) 100 mg DAILY PO Last administered on 03/13/17 08:05; Start 02/28/17 at 09:00 Aspirin (Children'S Aspirin) 81 mg DAILY PO Last administered on 03/13/17 08: 05; Start 02/28/17 at 09:00 Famotidine (Pepcid) 20 mg BID PO Last administered on 03/13/17 19:50; Start at 09:00 Ferrous Sulfate (Feosol) 325 mg DAILYWLUN PO Last administered on 03/13/17 12: 07; Start 02/28/17 at 12:00 Hydralazine HCl (Apresoline) 10 mg PRN TID PRN PO HYPERTENSION, SEE COMMENTS; Start 02/28/17 at 07:15 Albuterol/ Ipratropium (Duoneb) 3 ml PRN Q4HRS PRN NEB SHORTNESS OF BREATH Last administered on 03/08/17 20:50; Start 02/28/17 at 07:15 Levofloxacin (Levaquin) 250 mg DAILY PO Last administered on 02/28/17 09:59; Start 02/28/17 at 09:00; Stop 02/28/17 at 13:16; Status DC Prednisone (Prednisone) 10 mg DAILY PO Last administered on 03/13/17 08:05; Start 02/28/17 at 09:00 Tramadol HCl (Ultram) 50 mg PRN Q6HRS PRN PO PAIN; Start 02/28/17 at 07:15 Vitamin B Complex 1 cap DAILYWLUN PO Last administered on 03/13/17 12:07; Start 02/28/17 at 12:00 Olanzapine (ZyPREXA) 2.5 mg BID PO Last administered on 03/02/17 08:46; Start 02/28/17 at 21:00; Stop 03/02/17 at 19:03; Status DC Sertraline HCl (Zoloft) 25 mg DAILY PO Last administered on 03/02/17 08:46; Start 03/01/17 at 09:00; Stop 03/02/17 at 19:03; Status DC Olanzapine (ZyPREXA) 2.5 mg HS PO Last administered on 03/04/17 20:26; Start 03/02/17 at 21:00; Stop 03/05/17 at 18:34; Status DC Citalopram Hydrobromide (CeleXA) 10 mg DAILY PO Last administered on 03/05/17 09:23; Start 03/03/17 at 09:00; Stop 03/05/17 at 10:00; Status DC Citalopram Hydrobromide (CeleXA) 20 mg DAILY PO Last administered on 03/13/17 08:05; Start 03/06/17 at 09:00 Dronabinol (Marinol) 2.5 mg DAILY PO Last administered on 03/13/17 08:07; Start 03/03/17 at 09:00 Quetiapine Fumarate (SEROquel) 12.5 mg 0900 PO Last administered on 03/07/17 09:50; Start 03/05/17 at 09:00; Stop 03/07/17 at 14:08; Status DC Quetiapine Fumarate (SEROquel) 12.5 mg BID@0900,1700 PO Last administered on 16:48; Start 03/07/17 at 17:00; Stop 03/07/17 at 19:18; Status DC Vitamin D (Vitamin D3) 50,000 unit WEEKLY PO Last administered on 03/07/17 16: 46; Start 03/07/17 at 18:00 Amoxicillin (Amoxil) 500 mg [id number] PO Last administered on 03/08/17 08:05; Start 03/07/17 at 21:00; Stop 03/08/17 at 13:45; Status DC Trazodone HCl (Desyrel) 50 mg PRN QHS PRN PO INSOMNIA, MAY REPEAT X1; Start at 19:00 Quetiapine Fumarate (SEROquel) 25 mg TID@0900,1300,1700 PO Last administered on 03/09/17 17:25; Start 03/08/17 at 09:00; Stop 03/09/17 at 18:51; Status DC Amoxicillin (Amoxil) 500 mg [id number] PO Last administered on 03/13/17 19:52; Start 03/08/17 at 14:00; Stop 03/15/17 at 14:00 Quetiapine Fumarate (SEROquel) 37.5 mg TID@0900,1300,1700 PO Last administered on 03/13/17 17:03; Start 03/10/17 at 09:00 Active Scripts Active Reported Tramadol Hcl (Tramadol HCl) 50 Mg Tablet 50 Mg PO PRN Q6HRS PRN Melatonin 3 Mg Tablet 3 Mg PO PRN QHS PRN Meclizine Hcl 25 Mg Tablet 25 Mg PO PRN TID PRN Hydralazine Hcl 10 Mg Tablet 10 Mg PO PRN TID PRN Duoneb 0.5-3(2.5) Mg/3 Ml (Albuterol/Ipratropium) 3 Ml Ampul.neb 3 Ml NEB PRN Q4HRS PRN Tylenol (Acetaminophen) 325 Mg Tablet 325 Mg PO PRN Q6HRS PRN B Complex (Vitamin B Complex) 1 Each Tablet 1 Each PO DAILYWLUN Prednisone 10 Mg Tablet 10 Mg PO DAILY Olanzapine 5 Mg Tablet 5 Mg PO BID Mirtazapine 15 Mg Tablet 15 Mg PO QHS Levofloxacin 500 Mg Tablet 250 Mg PO DAILY Ferrous Sulfate 325 Mg Tablet 325 Mg PO DAILYWLUN Famotidine 20 Mg Tablet 20 Mg PO BID Aspirin 81 Mg Tab.chew 81 Mg PO DAILY Allopurinol 100 Mg Tablet 100 Mg PO DAILY Diagnosis: Problems: (1) Dementia (2) Anxiety disorder (3) Dementia, vascular, with depression (4) Dementia, vascular, with delusions (5) Dementia in Alzheimer's disease with depression (6) Dementia in Alzheimer's disease with delusions (7) Impulse control disorder AARON DUNN MD Mar 13, 2017 20:56
--- NOTE | 2017-03-13 23:12 | PN ---
DATE: 03/12/2017 PSYCHIATRIC PROGRESS NOTE This late entry 03/12/2017 covers elements not covered in my initial note of 03/12/2017. SUBJECTIVE: I met with the patient evening of 03/12/2017. The patient did well the previous evening. He is noncompliant with his CT head. WBCs are increased. We will repeat labs morning of 03/13/2017. He is on Amoxil for his UTI. REVIEW OF SYSTEMS: Ambulation impaired, in wheelchair. No CV, , pulmonary, eye, ENT system symptoms on review. MENTAL STATUS EXAM: Oriented to himself. Insight, judgment, recent and remote memory, attention, concentration, fund of knowledge poor, consistent with his diagnosis mentioned in my initial note. PLAN: Continue current psychotropics mentioned in my initial note. He has not been aggressive. He is tolerating the Seroquel 37.5 mg 3 times a day, Celexa, melatonin, Remeron, together with Zyprexa p.r.n. Review drug interactions, risk/benefit ratio favors no further change. MAN Colton DUNN MD DR: IDANIA/herlinda JOB#: [id number] / [id number]
[2017-03-14 06:31] VITALS: BP 121/69
[2017-03-14] MEDS: CITALOPRAM 20 MG TABLET. PO SCH (08:21)
[2017-03-14] MEDS: predniSONE 10 MG TABLET PO SCH (08:21)
[2017-03-14] MEDS: QUEtiapine 25 MG TABLET. PO SCH ×3 (08:21→17:33)
[2017-03-14] MEDS: ALLOPURINOL 100 MG TABLET. PO SCH (08:21)
[2017-03-14] MEDS: FAMOTIDINE 20 MG TABLET PO SCH ×2 (08:21→20:19)
[2017-03-14] MEDS: CHOLECALCIFEROL (VITAMIN D3) 50,000 UNIT CAPSULE PO SCH (08:21)
[2017-03-14] MEDS: ASPIRIN 81 MG TAB.CHEW PO SCH (08:22)
[2017-03-14] MEDS: AMOXICILLIN 250 MG CAPSULE PO SCH ×3 (08:22→20:19)
[2017-03-14] MEDS: DRONABINOL 2.5 MG CAPSULE PO SCH (08:23)
--- NOTE | 2017-03-14 10:57 | NUR ---
LANDON contacted Admissions at [facility] in [place] regarding dc plans for PT. to admit to SNU. Admissions verified they had spoke w/the family and anticipate Pt. to admit to SNU upon dc. SW faxed admit referral for review w/target dc date set for early next week. LANDON left message for Pt's dtr/DPOA, to contact LANDON to further discuss dc plan.
--- NOTE | 2017-03-14 11:20 | NUR ---
Behavior Intervention Response and Plan: BIRP Note: Behavior: Assumed Care of patient, patient located in Dining Room at shift change. Patient exhibited the following behavior Calm, Disorganized, Cooperative. Brief assessment on rounds of vital signs, medication needs, lab studies, and pain. Treatment plan problems 1-4. Intervention: Patient assessed and the following interventions initiated safety checks 15 Minute Checks Cognitive Assessment , Head to toe Assessment , Medications. Response: After interactions and interventions patient responded in the following manner, Disorganized , Calm ,Cooperative. Continue to assess behaviors and condition will continue to monitor throughout the shift as needed. Patient educated on ADL's, and hand hygiene. 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 Continue to assess patient for changes in above assessment. Monitor for medication needs, pain, and safety concerns. Hourly rounding performed to ensure safe environment.
[2017-03-14] MEDS: VITAMIN B COMPLEX CAPSULE. PO SCH (13:00)
[2017-03-14] MEDS: FERROUS SULFATE 325 MG TABLET. PO SCH (13:01)
[2017-03-14 16:50] VITALS: BP 131/73
--- NOTE | 2017-03-14 20:00 | NUR ---
Behavior Intervention Response and Plan: BIRP Note: Behavior: Assumed Care of patient, patient located in Day Room at shift change. Patient exhibited the following behavior Calm, Able to Focus on Task, Cooperative. Brief assessment on rounds of vital signs, medication needs, lab studies, and pain. Treatment plan problems . Intervention: Patient assessed and the following interventions initiated safety checks 15 Minute Checks Cognitive Assessment , Head to toe Assessment , Medications. Response: After interactions and interventions patient responded in the following manner, Cooperative , Able to Focus on Task ,Appropriate. Continue to assess behaviors and condition will continue to monitor throughout the shift as needed. Patient educated on ADL's, and hand hygiene. 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 Continue to assess patient for changes in above assessment. Monitor for medication needs, pain, and safety concerns. Hourly rounding performed to ensure safe environment.
[2017-03-14] MEDS: MIRTAZAPINE 15 MG TABLET PO SCH (20:19)
--- NOTE | 2017-03-14 21:08 | PDOC ---
Exam Hector Demential Exam: Hector Note: Please also refer to the separate dictated note~for this date of service dictated separately.~Patient seen individually. Discussed the patient with Nursing staff reviewed the chart.~Reviewed interim history and current functioning. Reviewed vital signs,~Labs/ Radiology~and current medications noted below. Continue current treatment with the changes noted in the dictated addendum note Assessment: Vital Signs: Vital Signs Date Time Temp Pulse Resp B/P (MAP) Pulse Ox O2 Delivery O2 Flow Rate FiO2 03/14/17 16:50 98.7 72 18 131/73 (92) 94 03/13/17 05:57 Room Air I&O Intake and Output 03/15/17 07:00 Intake Total 900 ml Balance 900 ml Intake Oral 900 ml Current Medications: Meds: Current Medications Multi-Ingredient Ointment (Analgesic [place]) 1 delvis PRN QID PRN TP MUSCLE PAIN; Start 02/27/17 at 16:30 Al Hydroxide/Mg Hydroxide (Mylanta Plus Xs) 15 ml PRN AFTMEALHC PRN PO DYSPEPSIA; Start 02/27/17 at 16:30 Magnesium Hydroxide (Milk Of Magnesia) 2,400 mg PRN QHS PRN PO CONSTIPATION Last administered on 03/12/17 20:23; Start 02/27/17 at 16:30 Mirtazapine (Remeron) 15 mg QHS PO Last administered on 03/14/17 20:19; Start 02/27/17 at 21:00 Olanzapine (ZyPREXA) 5 mg BID PO Last administered on 02/28/17 09:59; Start at 21:00; Stop 02/28/17 at 19:18; Status DC Meclizine HCl (Antivert) 25 mg PRN TID PRN PO NAUSEA/ VOMITTING; Start at 16:45 Melatonin 3 mg PRN QHS PRN PO INSOMNIA Last administered on 03/12/17 20:24; Start 02/27/17 at 16:45 Info (FLU VACCINE per PROTOCOL) 1 ea 1X ONCE MC ; Start 02/27/17 at 18:15; Stop 02/27/17 at 18:16; Status UNV Influenza Virus Vaccine Quadrival (Fluarix Quad [id number] Syringe) 0.5 ml ONCE ONCE VAX IM Last administered on 02/28/17 12:19; Start 02/28/17 at 12:00; Stop 02/28/17 at 12:01; Status DC Olanzapine (ZyPREXA ZYDIS) 2.5 mg PRN Q2HR PRN PO PSYCHOSIS Last administered on 03/07/17 02:18; Start 02/27/17 at 19:00 Acetaminophen (Tylenol) 325 mg PRN Q6HRS PRN PO PAIN / TEMP; Start 02/28/17 at 07:15 Allopurinol (Zyloprim) 100 mg DAILY PO Last administered on 03/14/17 08:21; Start 02/28/17 at 09:00 Aspirin (Children'S Aspirin) 81 mg DAILY PO Last administered on 03/14/17 08: 22; Start 02/28/17 at 09:00 Famotidine (Pepcid) 20 mg BID PO Last administered on 03/14/17 20:19; Start at 09:00 Ferrous Sulfate (Feosol) 325 mg DAILYWLUN PO Last administered on 03/14/17 13: 01; Start 02/28/17 at 12:00 Hydralazine HCl (Apresoline) 10 mg PRN TID PRN PO HYPERTENSION, SEE COMMENTS; Start 02/28/17 at 07:15 Albuterol/ Ipratropium (Duoneb) 3 ml PRN Q4HRS PRN NEB SHORTNESS OF BREATH Last administered on 03/08/17 20:50; Start 02/28/17 at 07:15 Levofloxacin (Levaquin) 250 mg DAILY PO Last administered on 02/28/17 09:59; Start 02/28/17 at 09:00; Stop 02/28/17 at 13:16; Status DC Prednisone (Prednisone) 10 mg DAILY PO Last administered on 03/14/17 08:21; Start 02/28/17 at 09:00 Tramadol HCl (Ultram) 50 mg PRN Q6HRS PRN PO PAIN; Start 02/28/17 at 07:15 Vitamin B Complex 1 cap DAILYWLUN PO Last administered on 03/14/17 13:00; Start 02/28/17 at 12:00 Olanzapine (ZyPREXA) 2.5 mg BID PO Last administered on 03/02/17 08:46; Start 02/28/17 at 21:00; Stop 03/02/17 at 19:03; Status DC Sertraline HCl (Zoloft) 25 mg DAILY PO Last administered on 03/02/17 08:46; Start 03/01/17 at 09:00; Stop 03/02/17 at 19:03; Status DC Olanzapine (ZyPREXA) 2.5 mg HS PO Last administered on 03/04/17 20:26; Start 03/02/17 at 21:00; Stop 03/05/17 at 18:34; Status DC Citalopram Hydrobromide (CeleXA) 10 mg DAILY PO Last administered on 03/05/17 09:23; Start 03/03/17 at 09:00; Stop 03/05/17 at 10:00; Status DC Citalopram Hydrobromide (CeleXA) 20 mg DAILY PO Last administered on 03/14/17 08:21; Start 03/06/17 at 09:00 Dronabinol (Marinol) 2.5 mg DAILY PO Last administered on 03/14/17 08:23; Start 03/03/17 at 09:00 Quetiapine Fumarate (SEROquel) 12.5 mg 0900 PO Last administered on 03/07/17 09:50; Start 03/05/17 at 09:00; Stop 03/07/17 at 14:08; Status DC Quetiapine Fumarate (SEROquel) 12.5 mg BID@0900,1700 PO Last administered on 16:48; Start 03/07/17 at 17:00; Stop 03/07/17 at 19:18; Status DC Vitamin D (Vitamin D3) 50,000 unit WEEKLY PO Last administered on 03/14/17 08: 21; Start 03/07/17 at 18:00 Amoxicillin (Amoxil) 500 mg [id number] PO Last administered on 03/08/17 08:05; Start 03/07/17 at 21:00; Stop 03/08/17 at 13:45; Status DC Trazodone HCl (Desyrel) 50 mg PRN QHS PRN PO INSOMNIA, MAY REPEAT X1; Start at 19:00 Quetiapine Fumarate (SEROquel) 25 mg TID@0900,1300,1700 PO Last administered on 03/09/17 17:25; Start 03/08/17 at 09:00; Stop 03/09/17 at 18:51; Status DC Amoxicillin (Amoxil) 500 mg [id number] PO Last administered on 03/14/17 20:19; Start 03/08/17 at 14:00; Stop 03/15/17 at 14:00 Quetiapine Fumarate (SEROquel) 37.5 mg TID@0900,1300,1700 PO Last administered on 03/14/17 17:33; Start 03/10/17 at 09:00 Active Scripts Active Reported Tramadol Hcl (Tramadol HCl) 50 Mg Tablet 50 Mg PO PRN Q6HRS PRN Melatonin 3 Mg Tablet 3 Mg PO PRN QHS PRN Meclizine Hcl 25 Mg Tablet 25 Mg PO PRN TID PRN Hydralazine Hcl 10 Mg Tablet 10 Mg PO PRN TID PRN Duoneb 0.5-3(2.5) Mg/3 Ml (Albuterol/Ipratropium) 3 Ml Ampul.neb 3 Ml NEB PRN Q4HRS PRN Tylenol (Acetaminophen) 325 Mg Tablet 325 Mg PO PRN Q6HRS PRN B Complex (Vitamin B Complex) 1 Each Tablet 1 Each PO DAILYWLUN Prednisone 10 Mg Tablet 10 Mg PO DAILY Olanzapine 5 Mg Tablet 5 Mg PO BID Mirtazapine 15 Mg Tablet 15 Mg PO QHS Levofloxacin 500 Mg Tablet 250 Mg PO DAILY Ferrous Sulfate 325 Mg Tablet 325 Mg PO DAILYWLUN Famotidine 20 Mg Tablet 20 Mg PO BID Aspirin 81 Mg Tab.chew 81 Mg PO DAILY Allopurinol 100 Mg Tablet 100 Mg PO DAILY Diagnosis: Problems: (1) Dementia (2) Anxiety disorder (3) Dementia, vascular, with depression (4) Dementia, vascular, with delusions (5) Dementia in Alzheimer's disease with depression (6) Dementia in Alzheimer's disease with delusions (7) Impulse control disorder AARON DUNN MD Mar 14, 2017 21:08
--- NOTE | 2017-03-14 23:23 | PN ---
DATE: 03/13/2017 PSYCHIATRIC PROGRESS NOTE This is a late entry for 03/13/2017, covers elements not covered in my initial note of 03/13/2017. SUBJECTIVE: I met with the patient the evening of 03/13/2017. Overall, the patient remains confused, withdrawn in his wheelchair, not aggressive, takes his medications crushed, more compliant. REVIEW OF SYSTEMS: Ambulation impaired, in a wheelchair. No CV, , pulmonary, eye system symptoms on review. MENTAL STATUS EXAM: Oriented to himself. Insight, judgment, recent and remote memory, attention, concentration, fund of knowledge poor, consistent with his diagnosis mentioned in my initial note. PLAN: Continue current psychotropics. Reviewed drug interactions. Risk/benefit ratio favors no further change. MAN Colton DUNN MD DR: IDANIA/herlinda JOB#: [id number] / [id number]
--- NOTE | 2017-03-15 06:30 | NUR ---
Pt on toilet straining to have BM without results, very uncomfortable. Placed on bed no stool visible. Will give MOM.
[2017-03-15] MEDS: MAGNESIUM HYDROXIDE 2,400 MG/30 ML ORAL.SUSP. PO PRN (06:44)
[2017-03-15 06:46] VITALS: BP 167/73
[2017-03-15] MEDS ORDERED: BISACODYL 10 MG SUPP.RECT PR PRN (07:45)
[2017-03-15] MEDS ORDERED: SODIUM PHOSPHATES 19/7GM 133 ML ENEMA. PR ONE (09:15)
--- NOTE | 2017-03-15 09:59 | NUR ---
Pt very constipated. Pt writhing in pain, restless in wheelchair, hollering out "just let me ." Pt moved from toilet to bed to wheelchair throughout the morning. Pt given MOM with prune juice, dulcolax suppository and fleet enema throughout the morning. Medium amount of hard bowel was removed digitally from pt. Pt calmer now, resting in bed.
[2017-03-15] MEDS: FAMOTIDINE 20 MG TABLET PO SCH ×2 (13:00→19:40)
[2017-03-15] MEDS: ASPIRIN 81 MG TAB.CHEW PO SCH (13:00)
[2017-03-15] MEDS: QUEtiapine 25 MG TABLET. PO SCH ×3 (13:00→17:33)
[2017-03-15] MEDS: ALLOPURINOL 100 MG TABLET. PO SCH (13:00)
[2017-03-15] MEDS: DRONABINOL 2.5 MG CAPSULE PO SCH (13:00)
[2017-03-15] MEDS: predniSONE 10 MG TABLET PO SCH (13:01)
[2017-03-15] MEDS: AMOXICILLIN 250 MG CAPSULE PO SCH ×2 (13:01→13:02)
[2017-03-15] MEDS: FERROUS SULFATE 325 MG TABLET. PO SCH (13:01)
[2017-03-15] MEDS: CITALOPRAM 20 MG TABLET. PO SCH (13:01)
[2017-03-15] MEDS: VITAMIN B COMPLEX CAPSULE. PO SCH (13:01)
[2017-03-15 16:29] VITALS: BP 130/68
--- NOTE | 2017-03-15 17:10 | NUR ---
WEEKLY THERAPEUTIC RECREATION NOTE Date of Admission: 02/27/2017 Date of AT Assessment: 03/06/2017 Goal aimed: To increase awareness and socialization Initial goal: Pt. will participate in at least one group a day. Weekly progress towards goal: did not meet Group participation level: No groups last Sunday, a couple minimal groups on Sunday, full group on Sunday, two full groups on Sunday, nothing today. Behaviors observed: Pt. has been pretty calm and engaging more as the week progressed, until today, Pt. was not feeling well, medical team assisted with bowel issues. Plan: no changed to goal
[2017-03-15] MEDS: MIRTAZAPINE 15 MG TABLET PO SCH (19:40)
--- NOTE | 2017-03-15 21:12 | PDOC ---
Exam Hector Demential Exam: Hector Note: Please also refer to the separate dictated note~for this date of service dictated separately.~Patient seen individually. Discussed the patient with Nursing staff reviewed the chart.~Reviewed interim history and current functioning. Reviewed vital signs,~Labs/ Radiology~and current medications noted below. Continue current treatment with the changes noted in the dictated addendum note Assessment: Vital Signs: Vital Signs Date Time Temp Pulse Resp B/P (MAP) Pulse Ox O2 Delivery O2 Flow Rate FiO2 03/15/17 16:29 98.2 80 18 130/68 (88) 95 03/15/17 06:46 Room Air I&O Intake and Output 03/16/17 07:00 Intake Total 360 ml Balance 360 ml Intake Oral 360 ml # Bowel Movements 4 Current Medications: Meds: Current Medications Multi-Ingredient Ointment (Analgesic [place]) 1 delvis PRN QID PRN TP MUSCLE PAIN; Start 02/27/17 at 16:30 Al Hydroxide/Mg Hydroxide (Mylanta Plus Xs) 15 ml PRN AFTMEALHC PRN PO DYSPEPSIA; Start 02/27/17 at 16:30 Magnesium Hydroxide (Milk Of Magnesia) 2,400 mg PRN QHS PRN PO CONSTIPATION Last administered on 03/15/17 06:44; Start 02/27/17 at 16:30 Mirtazapine (Remeron) 15 mg QHS PO Last administered on 03/15/17 19:40; Start 02/27/17 at 21:00 Olanzapine (ZyPREXA) 5 mg BID PO Last administered on 02/28/17 09:59; Start at 21:00; Stop 02/28/17 at 19:18; Status DC Meclizine HCl (Antivert) 25 mg PRN TID PRN PO NAUSEA/ VOMITTING; Start at 16:45 Melatonin 3 mg PRN QHS PRN PO INSOMNIA Last administered on 03/12/17 20:24; Start 02/27/17 at 16:45 Info (FLU VACCINE per PROTOCOL) 1 ea 1X ONCE MC ; Start 02/27/17 at 18:15; Stop 02/27/17 at 18:16; Status UNV Influenza Virus Vaccine Quadrival (Fluarix Quad [id number] Syringe) 0.5 ml ONCE ONCE VAX IM Last administered on 02/28/17 12:19; Start 02/28/17 at 12:00; Stop 02/28/17 at 12:01; Status DC Olanzapine (ZyPREXA ZYDIS) 2.5 mg PRN Q2HR PRN PO PSYCHOSIS Last administered on 03/07/17 02:18; Start 02/27/17 at 19:00 Acetaminophen (Tylenol) 325 mg PRN Q6HRS PRN PO PAIN / TEMP; Start 02/28/17 at 07:15 Allopurinol (Zyloprim) 100 mg DAILY PO Last administered on 03/15/17 13:00; Start 02/28/17 at 09:00 Aspirin (Children'S Aspirin) 81 mg DAILY PO Last administered on 03/15/17 13: 00; Start 02/28/17 at 09:00 Famotidine (Pepcid) 20 mg BID PO Last administered on 03/15/17 19:40; Start at 09:00 Ferrous Sulfate (Feosol) 325 mg DAILYWLUN PO Last administered on 03/15/17 13: 01; Start 02/28/17 at 12:00 Hydralazine HCl (Apresoline) 10 mg PRN TID PRN PO HYPERTENSION, SEE COMMENTS; Start 02/28/17 at 07:15 Albuterol/ Ipratropium (Duoneb) 3 ml PRN Q4HRS PRN NEB SHORTNESS OF BREATH Last administered on 03/08/17 20:50; Start 02/28/17 at 07:15 Levofloxacin (Levaquin) 250 mg DAILY PO Last administered on 02/28/17 09:59; Start 02/28/17 at 09:00; Stop 02/28/17 at 13:16; Status DC Prednisone (Prednisone) 10 mg DAILY PO Last administered on 03/15/17 13:01; Start 02/28/17 at 09:00 Tramadol HCl (Ultram) 50 mg PRN Q6HRS PRN PO PAIN; Start 02/28/17 at 07:15 Vitamin B Complex 1 cap DAILYWLUN PO Last administered on 03/15/17 13:01; Start 02/28/17 at 12:00 Olanzapine (ZyPREXA) 2.5 mg BID PO Last administered on 03/02/17 08:46; Start 02/28/17 at 21:00; Stop 03/02/17 at 19:03; Status DC Sertraline HCl (Zoloft) 25 mg DAILY PO Last administered on 03/02/17 08:46; Start 03/01/17 at 09:00; Stop 03/02/17 at 19:03; Status DC Olanzapine (ZyPREXA) 2.5 mg HS PO Last administered on 03/04/17 20:26; Start 03/02/17 at 21:00; Stop 03/05/17 at 18:34; Status DC Citalopram Hydrobromide (CeleXA) 10 mg DAILY PO Last administered on 03/05/17 09:23; Start 03/03/17 at 09:00; Stop 03/05/17 at 10:00; Status DC Citalopram Hydrobromide (CeleXA) 20 mg DAILY PO Last administered on 03/15/17 13:01; Start 03/06/17 at 09:00 Dronabinol (Marinol) 2.5 mg DAILY PO Last administered on 03/15/17 13:00; Start 03/03/17 at 09:00 Quetiapine Fumarate (SEROquel) 12.5 mg 0900 PO Last administered on 03/07/17 09:50; Start 03/05/17 at 09:00; Stop 03/07/17 at 14:08; Status DC Quetiapine Fumarate (SEROquel) 12.5 mg BID@0900,1700 PO Last administered on 16:48; Start 03/07/17 at 17:00; Stop 03/07/17 at 19:18; Status DC Vitamin D (Vitamin D3) 50,000 unit WEEKLY PO Last administered on 03/14/17 08: 21; Start 03/07/17 at 18:00 Amoxicillin (Amoxil) 500 mg [id number] PO Last administered on 03/08/17 08:05; Start 03/07/17 at 21:00; Stop 03/08/17 at 13:45; Status DC Trazodone HCl (Desyrel) 50 mg PRN QHS PRN PO INSOMNIA, MAY REPEAT X1; Start at 19:00 Quetiapine Fumarate (SEROquel) 25 mg TID@0900,1300,1700 PO Last administered on 03/09/17 17:25; Start 03/08/17 at 09:00; Stop 03/09/17 at 18:51; Status DC Amoxicillin (Amoxil) 500 mg [id number] PO Last administered on 03/15/17 13:01; Start 03/08/17 at 14:00; Stop 03/15/17 at 14:00; Status DC Quetiapine Fumarate (SEROquel) 37.5 mg TID@0900,1300,1700 PO Last administered on 03/15/17 17:33; Start 03/10/17 at 09:00 Bisacodyl (Dulcolax Supp) 10 mg PRN DAILY PRN [place] CONSTIPATION; Start 03/15/17 at 07:45 Sodium Biphosphate/ Sodium Phosphate (Fleet Adult) 133 ml 1X ONCE [place] Last administered on 03/15/17 09:28; Start 03/15/17 at 09:15; Stop 03/15/17 at 09:16 ; Status DC Sodium Biphosphate/ Sodium Phosphate (Fleet Adult) 133 ml PRN DAILY PRN [place] CONSTIPATION; Start 03/16/17 at 09:00 Active Scripts Active Reported Tramadol Hcl (Tramadol HCl) 50 Mg Tablet 50 Mg PO PRN Q6HRS PRN Melatonin 3 Mg Tablet 3 Mg PO PRN QHS PRN Meclizine Hcl 25 Mg Tablet 25 Mg PO PRN TID PRN Hydralazine Hcl 10 Mg Tablet 10 Mg PO PRN TID PRN Duoneb 0.5-3(2.5) Mg/3 Ml (Albuterol/Ipratropium) 3 Ml Ampul.neb 3 Ml NEB PRN Q4HRS PRN Tylenol (Acetaminophen) 325 Mg Tablet 325 Mg PO PRN Q6HRS PRN B Complex (Vitamin B Complex) 1 Each Tablet 1 Each PO DAILYWLUN Prednisone 10 Mg Tablet 10 Mg PO DAILY Olanzapine 5 Mg Tablet 5 Mg PO BID Mirtazapine 15 Mg Tablet 15 Mg PO QHS Levofloxacin 500 Mg Tablet 250 Mg PO DAILY Ferrous Sulfate 325 Mg Tablet 325 Mg PO DAILYWLUN Famotidine 20 Mg Tablet 20 Mg PO BID Aspirin 81 Mg Tab.chew 81 Mg PO DAILY Allopurinol 100 Mg Tablet 100 Mg PO DAILY Diagnosis: Problems: (1) Dementia (2) Anxiety disorder (3) Dementia, vascular, with depression (4) Dementia, vascular, with delusions (5) Dementia in Alzheimer's disease with depression (6) Dementia in Alzheimer's disease with delusions (7) Impulse control disorder AARON DUNN MD Mar 15, 2017 21:12
--- NOTE | 2017-03-15 21:50 | NUR ---
Behavior Intervention Response and Plan: BIRP Note: Behavior: Assumed Care of patient, patient located in Day Room at shift change. Patient exhibited the following behavior Calm, Disorganized, Compliant. Brief assessment on rounds of vital signs, medication needs, lab studies, and pain. Treatment plan problems . Intervention: Patient assessed and the following interventions initiated safety checks 15 Minute Checks Cognitive Assessment , Head to toe Assessment , Medications. Response: After interactions and interventions patient responded in the following manner, Interactive , Disorganized ,Cooperative. Continue to assess behaviors and condition will continue to monitor throughout the shift as needed. Patient educated on ADL's, and hand hygiene. 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 Continue to assess patient for changes in above assessment. Monitor for medication needs, pain, and safety concerns. Hourly rounding performed to ensure safe environment.
--- NOTE | 2017-03-16 05:50 | NUR ---
Pt exit seeking running wc into others excitedly propelling self around unit. Placed in W hallway and PRN med given.
[2017-03-16 08:25] VITALS: BP 167/71
[2017-03-16] MEDS: ASPIRIN 81 MG TAB.CHEW PO SCH (08:35)
[2017-03-16] MEDS: FAMOTIDINE 20 MG TABLET PO SCH ×2 (08:35→19:21)
[2017-03-16] MEDS: CITALOPRAM 20 MG TABLET. PO SCH (08:35)
[2017-03-16] MEDS: predniSONE 10 MG TABLET PO SCH (08:35)
[2017-03-16] MEDS: QUEtiapine 25 MG TABLET. PO SCH ×3 (08:36→17:33)
[2017-03-16] MEDS: ALLOPURINOL 100 MG TABLET. PO SCH (08:36)
[2017-03-16] MEDS: DRONABINOL 2.5 MG CAPSULE PO SCH (08:36)
[2017-03-16] MEDS ORDERED: SODIUM PHOSPHATES 19/7GM 133 ML ENEMA. PR PRN (09:00)
--- NOTE | 2017-03-16 11:23 | NUR ---
Behavior Intervention Response and Plan: BIRP Note: Behavior: Assumed Care of patient, patient located in Day Room at shift change. Patient exhibited the following behavior Disorganized, Wandering, Exit Seeking. Brief assessment on rounds of vital signs, medication needs, lab studies, and pain. Treatment plan problems 1-2. Intervention: Patient assessed and the following interventions initiated safety checks 15 Minute Checks Personal Alarm in place , Cognitive Assessment , Head to toe Assessment. Response: After interactions and interventions patient responded in the following manner, Wandering , Exit Seeking ,Disorganized. Continue to assess behaviors and condition will continue to monitor throughout the shift as needed. Patient educated on ADL's, and hand hygiene. 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 Continue to assess patient for changes in above assessment. Monitor for medication needs, pain, and safety concerns. Hourly rounding performed to ensure safe environment.
[2017-03-16] MEDS: FERROUS SULFATE 325 MG TABLET. PO SCH (12:34)
[2017-03-16] MEDS: VITAMIN B COMPLEX CAPSULE. PO SCH (12:34)
--- NOTE | 2017-03-16 14:49 | NUR ---
LANDON spoke w/PT's dtr/Scott RASCON regarding dc plans set for Sunday. LANDON faxed updated clinicals w/target dc date for Sunday to [facility] in [place] where Pt. will admit for Skilled rehab.
[2017-03-16 15:55] VITALS: BP 118/72
[2017-03-16] MEDS: MIRTAZAPINE 15 MG TABLET PO SCH (19:22)
--- NOTE | 2017-03-16 21:18 | PDOC ---
Exam Hector Demential Exam: Hector Note: Please also refer to the separate dictated note~for this date of service dictated separately.~Patient seen individually. Discussed the patient with Nursing staff reviewed the chart.~Reviewed interim history and current functioning. Reviewed vital signs,~Labs/ Radiology~and current medications noted below. Continue current treatment with the changes noted in the dictated addendum note Assessment: Vital Signs: Vital Signs Date Time Temp Pulse Resp B/P (MAP) Pulse Ox O2 Delivery O2 Flow Rate FiO2 03/16/17 15:55 98.6 78 20 118/72 (87) 93 03/15/17 06:46 Room Air I&O Intake and Output 03/17/17 07:00 Intake Total 1440 ml Balance 1440 ml Intake Oral 1440 ml Current Medications: Meds: Current Medications Multi-Ingredient Ointment (Analgesic [place]) 1 delvis PRN QID PRN TP MUSCLE PAIN; Start 02/27/17 at 16:30 Al Hydroxide/Mg Hydroxide (Mylanta Plus Xs) 15 ml PRN AFTMEALHC PRN PO DYSPEPSIA; Start 02/27/17 at 16:30 Magnesium Hydroxide (Milk Of Magnesia) 2,400 mg PRN QHS PRN PO CONSTIPATION Last administered on 03/15/17 06:44; Start 02/27/17 at 16:30 Mirtazapine (Remeron) 15 mg QHS PO Last administered on 03/16/17 19:22; Start 02/27/17 at 21:00 Olanzapine (ZyPREXA) 5 mg BID PO Last administered on 02/28/17 09:59; Start at 21:00; Stop 02/28/17 at 19:18; Status DC Meclizine HCl (Antivert) 25 mg PRN TID PRN PO NAUSEA/ VOMITTING; Start at 16:45 Melatonin 3 mg PRN QHS PRN PO INSOMNIA Last administered on 03/12/17 20:24; Start 02/27/17 at 16:45 Info (FLU VACCINE per PROTOCOL) 1 ea 1X ONCE MC ; Start 02/27/17 at 18:15; Stop 02/27/17 at 18:16; Status UNV Influenza Virus Vaccine Quadrival (Fluarix Quad [id number] Syringe) 0.5 ml ONCE ONCE VAX IM Last administered on 02/28/17 12:19; Start 02/28/17 at 12:00; Stop 02/28/17 at 12:01; Status DC Olanzapine (ZyPREXA ZYDIS) 2.5 mg PRN Q2HR PRN PO PSYCHOSIS Last administered on 03/16/17 05:49; Start 02/27/17 at 19:00 Acetaminophen (Tylenol) 325 mg PRN Q6HRS PRN PO PAIN / TEMP; Start 02/28/17 at 07:15 Allopurinol (Zyloprim) 100 mg DAILY PO Last administered on 03/16/17 08:36; Start 02/28/17 at 09:00 Aspirin (Children'S Aspirin) 81 mg DAILY PO Last administered on 03/16/17 08: 35; Start 02/28/17 at 09:00 Famotidine (Pepcid) 20 mg BID PO Last administered on 03/16/17 19:21; Start at 09:00 Ferrous Sulfate (Feosol) 325 mg DAILYWLUN PO Last administered on 03/16/17 12: 34; Start 02/28/17 at 12:00 Hydralazine HCl (Apresoline) 10 mg PRN TID PRN PO HYPERTENSION, SEE COMMENTS; Start 02/28/17 at 07:15 Albuterol/ Ipratropium (Duoneb) 3 ml PRN Q4HRS PRN NEB SHORTNESS OF BREATH Last administered on 03/08/17 20:50; Start 02/28/17 at 07:15 Levofloxacin (Levaquin) 250 mg DAILY PO Last administered on 02/28/17 09:59; Start 02/28/17 at 09:00; Stop 02/28/17 at 13:16; Status DC Prednisone (Prednisone) 10 mg DAILY PO Last administered on 03/16/17 08:35; Start 02/28/17 at 09:00 Tramadol HCl (Ultram) 50 mg PRN Q6HRS PRN PO PAIN; Start 02/28/17 at 07:15 Vitamin B Complex 1 cap DAILYWLUN PO Last administered on 03/16/17 12:34; Start 02/28/17 at 12:00 Olanzapine (ZyPREXA) 2.5 mg BID PO Last administered on 03/02/17 08:46; Start 02/28/17 at 21:00; Stop 03/02/17 at 19:03; Status DC Sertraline HCl (Zoloft) 25 mg DAILY PO Last administered on 03/02/17 08:46; Start 03/01/17 at 09:00; Stop 03/02/17 at 19:03; Status DC Olanzapine (ZyPREXA) 2.5 mg HS PO Last administered on 03/04/17 20:26; Start 03/02/17 at 21:00; Stop 03/05/17 at 18:34; Status DC Citalopram Hydrobromide (CeleXA) 10 mg DAILY PO Last administered on 03/05/17 09:23; Start 03/03/17 at 09:00; Stop 03/05/17 at 10:00; Status DC Citalopram Hydrobromide (CeleXA) 20 mg DAILY PO Last administered on 03/16/17 08:35; Start 03/06/17 at 09:00 Dronabinol (Marinol) 2.5 mg DAILY PO Last administered on 03/16/17 08:36; Start 03/03/17 at 09:00 Quetiapine Fumarate (SEROquel) 12.5 mg 0900 PO Last administered on 03/07/17 09:50; Start 03/05/17 at 09:00; Stop 03/07/17 at 14:08; Status DC Quetiapine Fumarate (SEROquel) 12.5 mg BID@0900,1700 PO Last administered on 16:48; Start 03/07/17 at 17:00; Stop 03/07/17 at 19:18; Status DC Vitamin D (Vitamin D3) 50,000 unit WEEKLY PO Last administered on 03/14/17 08: 21; Start 03/07/17 at 18:00 Amoxicillin (Amoxil) 500 mg [id number] PO Last administered on 03/08/17 08:05; Start 03/07/17 at 21:00; Stop 03/08/17 at 13:45; Status DC Trazodone HCl (Desyrel) 50 mg PRN QHS PRN PO INSOMNIA, MAY REPEAT X1; Start at 19:00 Quetiapine Fumarate (SEROquel) 25 mg TID@0900,1300,1700 PO Last administered on 03/09/17 17:25; Start 03/08/17 at 09:00; Stop 03/09/17 at 18:51; Status DC Amoxicillin (Amoxil) 500 mg [id number] PO Last administered on 03/15/17 13:01; Start 03/08/17 at 14:00; Stop 03/15/17 at 14:00; Status DC Quetiapine Fumarate (SEROquel) 37.5 mg TID@0900,1300,1700 PO Last administered on 03/16/17 17:33; Start 03/10/17 at 09:00; Stop 03/16/17 at 18:36; Status DC Bisacodyl (Dulcolax Supp) 10 mg PRN DAILY PRN [place] CONSTIPATION; Start 03/15/17 at 07:45 Sodium Biphosphate/ Sodium Phosphate (Fleet Adult) 133 ml 1X ONCE [place] Last administered on 03/15/17 09:28; Start 03/15/17 at 09:15; Stop 03/15/17 at 09:16 ; Status DC Sodium Biphosphate/ Sodium Phosphate (Fleet Adult) 133 ml PRN DAILY PRN [place] CONSTIPATION; Start 03/16/17 at 09:00 Quetiapine Fumarate (SEROquel) 37.5 mg BID@1300,1700 PO ; Start 03/17/17 at 13: 00 Quetiapine Fumarate (SEROquel) 50 mg DAILY PO ; Start 03/17/17 at 09:00 Active Scripts Active Reported Tramadol Hcl (Tramadol HCl) 50 Mg Tablet 50 Mg PO PRN Q6HRS PRN Melatonin 3 Mg Tablet 3 Mg PO PRN QHS PRN Meclizine Hcl 25 Mg Tablet 25 Mg PO PRN TID PRN Hydralazine Hcl 10 Mg Tablet 10 Mg PO PRN TID PRN Duoneb 0.5-3(2.5) Mg/3 Ml (Albuterol/Ipratropium) 3 Ml Ampul.neb 3 Ml NEB PRN Q4HRS PRN Tylenol (Acetaminophen) 325 Mg Tablet 325 Mg PO PRN Q6HRS PRN B Complex (Vitamin B Complex) 1 Each Tablet 1 Each PO DAILYWLUN Prednisone 10 Mg Tablet 10 Mg PO DAILY Olanzapine 5 Mg Tablet 5 Mg PO BID Mirtazapine 15 Mg Tablet 15 Mg PO QHS Levofloxacin 500 Mg Tablet 250 Mg PO DAILY Ferrous Sulfate 325 Mg Tablet 325 Mg PO DAILYWLUN Famotidine 20 Mg Tablet 20 Mg PO BID Aspirin 81 Mg Tab.chew 81 Mg PO DAILY Allopurinol 100 Mg Tablet 100 Mg PO DAILY Diagnosis: Problems: (1) Dementia (2) Anxiety disorder (3) Dementia, vascular, with depression (4) Dementia, vascular, with delusions (5) Dementia in Alzheimer's disease with depression (6) Dementia in Alzheimer's disease with delusions (7) Impulse control disorder AARON DUNN MD Mar 16, 2017 21:18
--- NOTE | 2017-03-16 21:21 | PN ---
DATE: 03/14/2017 This late entry for 03/14/2017 covers elements not covered in my initial note of 03/14/2017. I met with the patient in the evening of 03/14/2017. The patient slept 6-1/2 hours previous evening. He remains confused, calm, cooperative. REVIEW OF SYSTEMS: Ambulation impaired, in wheelchair. No CV, , pulmonary, eye, ENT system symptoms on review. Reliability poor. He is compliant with medications. MENTAL STATUS EXAM: Oriented to himself, pleasant, smiling, not very verbal, but otherwise appropriate as I met with him. Insight, judgment, recent and remote memory, attention, concentration, fund of knowledge poor, consistent with his diagnosis mentioned in my initial note. PLAN: Continue current psychotropics. Reviewed drug interactions. Risk/benefit ratio favors no further change. He remains on Remeron, melatonin, Zyprexa p.r.n., Celexa, Seroquel, trazodone for insomnia. AARON DUNN MD DR: IDANIA/herlinda JOB#: [id number] / [id number]
--- NOTE | 2017-03-16 22:52 | NUR ---
Behavior Intervention Response and Plan: BIRP Note: Behavior: Assumed Care of patient, patient located in Day Room at shift change. Patient exhibited the following behavior Calm, Compliant, Cooperative. Brief assessment on rounds of vital signs, medication needs, lab studies, and pain. Treatment plan problems Dementia w/BD and Fall Risk. Intervention: Patient assessed and the following interventions initiated safety checks 15 Minute Checks Cognitive Assessment , Medications , Oral Hydration. Response: After interactions and interventions patient responded in the following manner, Calm , Compliant ,Cooperative. Continue to assess behaviors and condition will continue to monitor throughout the shift as needed. Patient educated on ADL's, and hand hygiene. Plan: Continue to monitor Master Treatment Plan for patient's progress toward short term goals of Decreased Agitation, Decreased Anxiety, halfway goals to return to previous living setting vs placement. Continue to assess patient for changes in above assessment. Monitor for medication needs, pain, and safety concerns. Hourly rounding performed to ensure safe environment.
--- NOTE | 2017-03-17 00:42 | PN ---
DATE: 03/15/2017 PSYCHIATRIC PROGRESS NOTE This late entry, date of service 03/15/2017 covers elements not covered in my initial note of 03/15/2017. SUBJECTIVE: I met with the patient in the evening of 03/15/2017 staffed at a treatment team meeting with the entire team morning of 03/15/2017. The patient has significant constipation, this is being treated symptomatically. He is anxious, restless, checking the doors at times, but part of this is the agitation from the constipation. REVIEW OF SYSTEMS: Ambulation impaired, in a wheelchair. No CV, , pulmonary, eye system symptoms on review. Reliability poor. MENTAL STATUS EXAM: Oriented to himself. Insight, judgment, recent and remote memory, attention, concentration, fund of knowledge poor, consistent with his diagnosis. This note covers elements not covered in my initial note of 03/15/2017. IMPRESSION: Unchanged from initial note. PLAN: Continue current psychotropics. Review drug interactions, risk/benefit ratio favors no further change. He has received a Fleet's enema for the constipation treated further symptomatically as needed. MAN Colton DUNN MD DR: IDANIA/herlinda JOB#: [id number] / [id number]
[2017-03-17 06:10] VITALS: BP 164/83
--- NOTE | 2017-03-17 08:47 | NUR ---
pt is agitated, grinding teeth, wheeling himself up and down the halls, exit seeking, stating "I have to go." Nurse was unable to redirect pt buy offering breakfast, pt stated "It don't taste good." or the bathroom or a diversional activity such as watching TV or reading the newspaper or a magazine. Pt requested to go to bed. PRN flory dasilva given
--- NOTE | 2017-03-17 10:53 | NUR ---
Behavior Intervention Response and Plan: BIRP Note: Behavior: Assumed Care of patient, patient located in Day Room at shift change. Patient exhibited the following behavior resistive, agitated, exit seeking. Brief assessment on rounds of vital signs, medication needs, lab studies, and pain. Treatment plan problems Dementia w/BD and Fall Risk. Intervention: Patient assessed and the following interventions initiated safety checks 15 Minute Checks Cognitive Assessment , Medications , Oral Hydration. Response: After interactions and interventions patient responded in the following manner, Calm , Compliant ,Cooperative. Continue to assess behaviors and condition will continue to monitor throughout the shift as needed. Patient educated on ADL's, and hand hygiene. 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 Continue to assess patient for changes in above assessment. Monitor for medication needs, pain, and safety concerns. Hourly rounding performed to ensure safe environment.
[2017-03-17] MEDS: ASPIRIN 81 MG TAB.CHEW PO SCH (11:06)
[2017-03-17] MEDS: CITALOPRAM 20 MG TABLET. PO SCH (11:06)
[2017-03-17] MEDS: predniSONE 10 MG TABLET PO SCH (11:07)
[2017-03-17] MEDS: FAMOTIDINE 20 MG TABLET PO SCH ×2 (11:07→20:23)
[2017-03-17] MEDS: ALLOPURINOL 100 MG TABLET. PO SCH (11:07)
[2017-03-17] MEDS: DRONABINOL 2.5 MG CAPSULE PO SCH (11:09)
[2017-03-17] MEDS: QUEtiapine 50 MG TABLET. PO SCH (11:10)
[2017-03-17] MEDS: FERROUS SULFATE 325 MG TABLET. PO SCH (11:10)
[2017-03-17] MEDS: VITAMIN B COMPLEX CAPSULE. PO SCH (11:10)
--- NOTE | 2017-03-17 11:18 | NUR ---
Pt refused am assessment.
[2017-03-17] MEDS: QUEtiapine 25 MG TABLET. PO SCH ×2 (14:26→16:58)
[2017-03-17 16:19] VITALS: BP 152/86
--- NOTE | 2017-03-17 17:55 | PN ---
DATE: 03/16/2017 PSYCHIATRIC PROGRESS NOTE This is a late entry 03/16/2017, covers elements not covered in my initial note of 03/16/2017. SUBJECTIVE: I met with the patient the evening of 03/16/2017. The patient slept hours previous evening, quite labile, confused, calms down at times, but was checking doors, exit seeking, cursing at times. REVIEW OF SYSTEMS: Ambulation impaired, in wheelchair. No CV, , pulmonary, eye, ENT system symptoms on review. Reliability poor. He is pleasant, smiling as I met with him, oblivious of his surroundings. MENTAL STATUS EXAM: Oriented to himself. Insight, judgment, recent and remote memory, attention, concentration, fund of knowledge poor, consistent with his diagnoses mentioned in my initial note. PLAN: Increase Seroquel from 37.5 mg 3 times a day to 50 mg 3 times a day. Maintain the rest of his psychotropics. Review drug interactions. Risk/benefit ratio favors no further change. MAN Colton DUNN MD DR: IDANIA/herlinda JOB#: [id number] / [id number]
[2017-03-17] MEDS: MIRTAZAPINE 15 MG TABLET PO SCH (20:23)
--- NOTE | 2017-03-17 20:25 | NUR ---
Behavior Intervention Response and Plan: BIRP Note: Behavior: Assumed Care of patient, patient located in Patient Room at shift change. Patient exhibited the following behavior Calm, Compliant, Cooperative. Brief assessment on rounds of vital signs, medication needs, lab studies, and pain. Treatment plan problems . Intervention: Patient assessed and the following interventions initiated safety checks 15 Minute Checks Cognitive Assessment , Head to toe Assessment , Medications. Response: After interactions and interventions patient responded in the following manner, Calm , Compliant ,Cooperative. Continue to assess behaviors and condition will continue to monitor throughout the shift as needed. Patient educated on ADL's, and hand hygiene. 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 Continue to assess patient for changes in above assessment. Monitor for medication needs, pain, and safety concerns. Hourly rounding performed to ensure safe environment.
--- NOTE | 2017-03-17 23:01 | PDOC ---
Exam Hector Demential Exam: Hector Note: Please also refer to the separate dictated note~for this date of service dictated separately.~Patient seen individually. Discussed the patient with Nursing staff reviewed the chart.~Reviewed interim history and current functioning. Reviewed vital signs,~Labs/ Radiology~and current medications noted below. Continue current treatment with the changes noted in the dictated addendum note Assessment: Vital Signs: Vital Signs Date Time Temp Pulse Resp B/P (MAP) Pulse Ox O2 Delivery O2 Flow Rate FiO2 03/17/17 16:19 98.1 81 16 152/86 (108) 94 03/15/17 06:46 Room Air I&O Intake and Output 03/18/17 07:00 Intake Total 960 ml Balance 960 ml Intake Oral 960 ml Current Medications: Meds: Current Medications Multi-Ingredient Ointment (Analgesic [place]) 1 delvis PRN QID PRN TP MUSCLE PAIN; Start 02/27/17 at 16:30 Al Hydroxide/Mg Hydroxide (Mylanta Plus Xs) 15 ml PRN AFTMEALHC PRN PO DYSPEPSIA; Start 02/27/17 at 16:30 Magnesium Hydroxide (Milk Of Magnesia) 2,400 mg PRN QHS PRN PO CONSTIPATION Last administered on 03/15/17 06:44; Start 02/27/17 at 16:30 Mirtazapine (Remeron) 15 mg QHS PO Last administered on 03/17/17 20:23; Start 02/27/17 at 21:00 Olanzapine (ZyPREXA) 5 mg BID PO Last administered on 02/28/17 09:59; Start at 21:00; Stop 02/28/17 at 19:18; Status DC Meclizine HCl (Antivert) 25 mg PRN TID PRN PO NAUSEA/ VOMITTING; Start at 16:45 Melatonin 3 mg PRN QHS PRN PO INSOMNIA Last administered on 03/12/17 20:24; Start 02/27/17 at 16:45 Info (FLU VACCINE per PROTOCOL) 1 ea 1X ONCE MC ; Start 02/27/17 at 18:15; Stop 02/27/17 at 18:16; Status UNV Influenza Virus Vaccine Quadrival (Fluarix Quad [id number] Syringe) 0.5 ml ONCE ONCE VAX IM Last administered on 02/28/17 12:19; Start 02/28/17 at 12:00; Stop 02/28/17 at 12:01; Status DC Olanzapine (ZyPREXA ZYDIS) 2.5 mg PRN Q2HR PRN PO PSYCHOSIS Last administered on 03/17/17 08:36; Start 02/27/17 at 19:00 Acetaminophen (Tylenol) 325 mg PRN Q6HRS PRN PO PAIN / TEMP; Start 02/28/17 at 07:15 Allopurinol (Zyloprim) 100 mg DAILY PO Last administered on 03/17/17 11:07; Start 02/28/17 at 09:00 Aspirin (Children'S Aspirin) 81 mg DAILY PO Last administered on 03/17/17 11: 06; Start 02/28/17 at 09:00 Famotidine (Pepcid) 20 mg BID PO Last administered on 03/17/17 20:23; Start at 09:00 Ferrous Sulfate (Feosol) 325 mg DAILYWLUN PO Last administered on 03/17/17 11: 10; Start 02/28/17 at 12:00 Hydralazine HCl (Apresoline) 10 mg PRN TID PRN PO HYPERTENSION, SEE COMMENTS; Start 02/28/17 at 07:15 Albuterol/ Ipratropium (Duoneb) 3 ml PRN Q4HRS PRN NEB SHORTNESS OF BREATH Last administered on 03/08/17 20:50; Start 02/28/17 at 07:15 Levofloxacin (Levaquin) 250 mg DAILY PO Last administered on 02/28/17 09:59; Start 02/28/17 at 09:00; Stop 02/28/17 at 13:16; Status DC Prednisone (Prednisone) 10 mg DAILY PO Last administered on 03/17/17 11:07; Start 02/28/17 at 09:00 Tramadol HCl (Ultram) 50 mg PRN Q6HRS PRN PO PAIN; Start 02/28/17 at 07:15 Vitamin B Complex 1 cap DAILYWLUN PO Last administered on 03/17/17 11:10; Start 02/28/17 at 12:00 Olanzapine (ZyPREXA) 2.5 mg BID PO Last administered on 03/02/17 08:46; Start 02/28/17 at 21:00; Stop 03/02/17 at 19:03; Status DC Sertraline HCl (Zoloft) 25 mg DAILY PO Last administered on 03/02/17 08:46; Start 03/01/17 at 09:00; Stop 03/02/17 at 19:03; Status DC Olanzapine (ZyPREXA) 2.5 mg HS PO Last administered on 03/04/17 20:26; Start 03/02/17 at 21:00; Stop 03/05/17 at 18:34; Status DC Citalopram Hydrobromide (CeleXA) 10 mg DAILY PO Last administered on 03/05/17 09:23; Start 03/03/17 at 09:00; Stop 03/05/17 at 10:00; Status DC Citalopram Hydrobromide (CeleXA) 20 mg DAILY PO Last administered on 03/17/17 11:06; Start 03/06/17 at 09:00 Dronabinol (Marinol) 2.5 mg DAILY PO Last administered on 03/17/17 11:09; Start 03/03/17 at 09:00 Quetiapine Fumarate (SEROquel) 12.5 mg 0900 PO Last administered on 03/07/17 09:50; Start 03/05/17 at 09:00; Stop 03/07/17 at 14:08; Status DC Quetiapine Fumarate (SEROquel) 12.5 mg BID@0900,1700 PO Last administered on 16:48; Start 03/07/17 at 17:00; Stop 03/07/17 at 19:18; Status DC Vitamin D (Vitamin D3) 50,000 unit WEEKLY PO Last administered on 03/14/17 08: 21; Start 03/07/17 at 18:00 Amoxicillin (Amoxil) 500 mg [id number] PO Last administered on 03/08/17 08:05; Start 03/07/17 at 21:00; Stop 03/08/17 at 13:45; Status DC Trazodone HCl (Desyrel) 50 mg PRN QHS PRN PO INSOMNIA, MAY REPEAT X1; Start at 19:00 Quetiapine Fumarate (SEROquel) 25 mg TID@0900,1300,1700 PO Last administered on 03/09/17 17:25; Start 03/08/17 at 09:00; Stop 03/09/17 at 18:51; Status DC Amoxicillin (Amoxil) 500 mg [id number] PO Last administered on 03/15/17 13:01; Start 03/08/17 at 14:00; Stop 03/15/17 at 14:00; Status DC Quetiapine Fumarate (SEROquel) 37.5 mg TID@0900,1300,1700 PO Last administered on 03/16/17 17:33; Start 03/10/17 at 09:00; Stop 03/16/17 at 18:36; Status DC Bisacodyl (Dulcolax Supp) 10 mg PRN DAILY PRN [place] CONSTIPATION; Start 03/15/17 at 07:45 Sodium Biphosphate/ Sodium Phosphate (Fleet Adult) 133 ml 1X ONCE [place] Last administered on 03/15/17 09:28; Start 03/15/17 at 09:15; Stop 03/15/17 at 09:16 ; Status DC Sodium Biphosphate/ Sodium Phosphate (Fleet Adult) 133 ml PRN DAILY PRN [place] CONSTIPATION; Start 03/16/17 at 09:00 Quetiapine Fumarate (SEROquel) 37.5 mg BID@1300,1700 PO Last administered on 16:58; Start 03/17/17 at 13:00 Quetiapine Fumarate (SEROquel) 50 mg DAILY PO Last administered on 03/17/17 11 :10; Start 03/17/17 at 09:00 Active Scripts Active Reported Tramadol Hcl (Tramadol HCl) 50 Mg Tablet 50 Mg PO PRN Q6HRS PRN Melatonin 3 Mg Tablet 3 Mg PO PRN QHS PRN Meclizine Hcl 25 Mg Tablet 25 Mg PO PRN TID PRN Hydralazine Hcl 10 Mg Tablet 10 Mg PO PRN TID PRN Duoneb 0.5-3(2.5) Mg/3 Ml (Albuterol/Ipratropium) 3 Ml Ampul.neb 3 Ml NEB PRN Q4HRS PRN Tylenol (Acetaminophen) 325 Mg Tablet 325 Mg PO PRN Q6HRS PRN B Complex (Vitamin B Complex) 1 Each Tablet 1 Tab PO DAILYWLUN Prednisone 10 Mg Tablet 10 Mg PO DAILY Olanzapine 5 Mg Tablet 5 Mg PO BID Mirtazapine 15 Mg Tablet 15 Mg PO QHS Levofloxacin 500 Mg Tablet 250 Mg PO DAILY Ferrous Sulfate 325 Mg Tablet 325 Mg PO DAILYWLUN Famotidine 20 Mg Tablet 20 Mg PO BID Aspirin 81 Mg Tab.chew 81 Mg PO DAILY Allopurinol 100 Mg Tablet 100 Mg PO DAILY Diagnosis: Problems: (1) Dementia (2) Anxiety disorder (3) Dementia, vascular, with depression (4) Dementia, vascular, with delusions (5) Dementia in Alzheimer's disease with depression (6) Dementia in Alzheimer's disease with delusions (7) Impulse control disorder AARON DUNN MD Mar 17, 2017 23:01
[2017-03-18 06:01] VITALS: BP 166/63
--- NOTE | 2017-03-18 06:32 | NUR ---
Pt is agitated, grinding teeth, wheeling himself back a forth in dayroom, exit seeking and checking all the doors. Pt stated "I have to go home". Nurse was unable to redirect, and pt growing more agitated. PRN flory dasilva given
--- NOTE | 2017-03-18 09:30 | NUR ---
Behavior Intervention Response and Plan: BIRP Note: Behavior: Assumed Care of patient, patient located in Day Room at shift change. Patient exhibited the following behavior resistive, agitated, exit seeking, wandering. Brief assessment on rounds of vital signs, medication needs, lab studies, and pain. Treatment plan problems Dementia w/BD and Fall Risk. Intervention: Patient assessed and the following interventions initiated safety checks 15 Minute Checks Cognitive Assessment , Medications , Oral Hydration. Response: After interactions and interventions patient responded in the following manner, napping, Calm, Compliant, Cooperative. Continue to assess behaviors and condition will continue to monitor throughout the shift as needed. Patient educated on ADL's, and hand hygiene. Plan: Continue to monitor Master Treatment Plan for patient's progress toward short term goals of Decreased Agitation, Decreased Anxiety, jail goals to return to previous living setting vs placement. Continue to assess patient for changes in above assessment. Monitor for medication needs, pain, and safety concerns. Hourly rounding performed to ensure safe environment.
[2017-03-18] MEDS: DRONABINOL 2.5 MG CAPSULE PO SCH (10:02)
[2017-03-18] MEDS: CITALOPRAM 20 MG TABLET. PO SCH (10:02)
[2017-03-18] MEDS: ASPIRIN 81 MG TAB.CHEW PO SCH (10:02)
[2017-03-18] MEDS: ALLOPURINOL 100 MG TABLET. PO SCH (10:03)
[2017-03-18] MEDS: predniSONE 10 MG TABLET PO SCH (10:03)
[2017-03-18] MEDS: QUEtiapine 50 MG TABLET. PO SCH (10:03)
[2017-03-18] MEDS: FAMOTIDINE 20 MG TABLET PO SCH ×2 (10:03→20:14)
[2017-03-18] MEDS ORDERED: BISA10SU2 RC (11:21)
[2017-03-18] MEDS ORDERED: CHOL500021 PO (11:29)
[2017-03-18] MEDS ORDERED: DRON2.5C PO (11:31)
[2017-03-18] MEDS ORDERED: MAG30ORA2 PO (11:33)
[2017-03-18] MEDS ORDERED: MAGN2400 PO (11:34)
[2017-03-18] MEDS ORDERED: METH29OI TP (11:35)
[2017-03-18] MEDS ORDERED: NA P133E2 RC (11:36)
[2017-03-18] MEDS ORDERED: CITA20TA9 PO (11:41)
[2017-03-18] MEDS ORDERED: OLAN5TAB5 PO (11:42)
[2017-03-18] MEDS ORDERED: QUET25TA5 PO (11:44)
[2017-03-18] MEDS ORDERED: QUET50TA5 PO (11:45)
[2017-03-18] MEDS ORDERED: TRAZ50TA15 PO (11:46)
[2017-03-18] MEDS: QUEtiapine 25 MG TABLET. PO SCH ×2 (12:54→16:38)
[2017-03-18] MEDS: FERROUS SULFATE 325 MG TABLET. PO SCH (12:54)
[2017-03-18] MEDS: VITAMIN B COMPLEX CAPSULE. PO SCH (12:54)
[2017-03-18 15:53] VITALS: BP 90/60
[2017-03-18] MEDS: MAGNESIUM HYDROXIDE 2,400 MG/30 ML ORAL.SUSP. PO PRN (17:07)
[2017-03-18] MEDS: MIRTAZAPINE 15 MG TABLET PO SCH (20:14)
--- NOTE | 2017-03-18 20:45 | PDOC ---
Exam Hector Demential Exam: Hector Note: Please also refer to the separate dictated note~for this date of service dictated separately.~Patient seen individually. Discussed the patient with Nursing staff reviewed the chart.~Reviewed interim history and current functioning. Reviewed vital signs,~Labs/ Radiology~and current medications noted below. Continue current treatment with the changes noted in the dictated addendum note Assessment: Vital Signs: Vital Signs Date Time Temp Pulse Resp B/P (MAP) Pulse Ox O2 Delivery O2 Flow Rate FiO2 03/18/17 15:53 97.9 76 16 90/60 (70) 94 03/15/17 06:46 Room Air I&O Intake and Output 03/19/17 07:00 Intake Total 360 ml Balance 360 ml Intake Oral 360 ml Current Medications: Meds: Current Medications Multi-Ingredient Ointment (Analgesic [place]) 1 mike PRN QID PRN TP MUSCLE PAIN; Start 02/27/17 at 16:30 Al Hydroxide/Mg Hydroxide (Mylanta Plus Xs) 15 ml PRN AFTMEALHC PRN PO DYSPEPSIA; Start 02/27/17 at 16:30 Magnesium Hydroxide (Milk Of Magnesia) 2,400 mg PRN QHS PRN PO CONSTIPATION Last administered on 03/18/17 17:07; Start 02/27/17 at 16:30 Mirtazapine (Remeron) 15 mg QHS PO Last administered on 03/18/17 20:14; Start 02/27/17 at 21:00 Olanzapine (ZyPREXA) 5 mg BID PO Last administered on 02/28/17 09:59; Start at 21:00; Stop 02/28/17 at 19:18; Status DC Meclizine HCl (Antivert) 25 mg PRN TID PRN PO NAUSEA/ VOMITTING; Start at 16:45 Melatonin 3 mg PRN QHS PRN PO INSOMNIA Last administered on 03/12/17 20:24; Start 02/27/17 at 16:45 Info (FLU VACCINE per PROTOCOL) 1 ea 1X ONCE [facility] ; Start 02/27/17 at 18:15; Stop 02/27/17 at 18:16; Status UNV Influenza Virus Vaccine Quadrival (Fluarix Quad [id number] Syringe) 0.5 ml ONCE ONCE VAX IM Last administered on 02/28/17 12:19; Start 02/28/17 at 12:00; Stop 02/28/17 at 12:01; Status DC Olanzapine (ZyPREXA ZYDIS) 2.5 mg PRN Q2HR PRN PO PSYCHOSIS Last administered on 03/18/17 06:26; Start 02/27/17 at 19:00 Acetaminophen (Tylenol) 325 mg PRN Q6HRS PRN PO PAIN / TEMP; Start 02/28/17 at 07:15 Allopurinol (Zyloprim) 100 mg DAILY PO Last administered on 03/18/17 10:03; Start 02/28/17 at 09:00 Aspirin (Children'S Aspirin) 81 mg DAILY PO Last administered on 03/18/17 10: 02; Start 02/28/17 at 09:00 Famotidine (Pepcid) 20 mg BID PO Last administered on 03/18/17 20:14; Start at 09:00 Ferrous Sulfate (Feosol) 325 mg DAILYWLUN PO Last administered on 03/18/17 12: 54; Start 02/28/17 at 12:00 Hydralazine HCl (Apresoline) 10 mg PRN TID PRN PO HYPERTENSION, SEE COMMENTS; Start 02/28/17 at 07:15 Albuterol/ Ipratropium (Duoneb) 3 ml PRN Q4HRS PRN NEB SHORTNESS OF BREATH Last administered on 03/08/17 20:50; Start 02/28/17 at 07:15 Levofloxacin (Levaquin) 250 mg DAILY PO Last administered on 02/28/17 09:59; Start 02/28/17 at 09:00; Stop 02/28/17 at 13:16; Status DC Prednisone (Prednisone) 10 mg DAILY PO Last administered on 03/18/17 10:03; Start 02/28/17 at 09:00 Tramadol HCl (Ultram) 50 mg PRN Q6HRS PRN PO PAIN; Start 02/28/17 at 07:15 Vitamin B Complex 1 cap DAILYWLUN PO Last administered on 03/18/17 12:54; Start 02/28/17 at 12:00 Olanzapine (ZyPREXA) 2.5 mg BID PO Last administered on 03/02/17 08:46; Start 02/28/17 at 21:00; Stop 03/02/17 at 19:03; Status DC Sertraline HCl (Zoloft) 25 mg DAILY PO Last administered on 03/02/17 08:46; Start 03/01/17 at 09:00; Stop 03/02/17 at 19:03; Status DC Olanzapine (ZyPREXA) 2.5 mg HS PO Last administered on 03/04/17 20:26; Start 03/02/17 at 21:00; Stop 03/05/17 at 18:34; Status DC Citalopram Hydrobromide (CeleXA) 10 mg DAILY PO Last administered on 03/05/17 09:23; Start 03/03/17 at 09:00; Stop 03/05/17 at 10:00; Status DC Citalopram Hydrobromide (CeleXA) 20 mg DAILY PO Last administered on 03/18/17 10:02; Start 03/06/17 at 09:00 Dronabinol (Marinol) 2.5 mg DAILY PO Last administered on 03/18/17 10:02; Start 03/03/17 at 09:00 Quetiapine Fumarate (SEROquel) 12.5 mg 0900 PO Last administered on 03/07/17 09:50; Start 03/05/17 at 09:00; Stop 03/07/17 at 14:08; Status DC Quetiapine Fumarate (SEROquel) 12.5 mg BID@0900,1700 PO Last administered on 16:48; Start 03/07/17 at 17:00; Stop 03/07/17 at 19:18; Status DC Vitamin D (Vitamin D3) 50,000 unit WEEKLY PO Last administered on 03/14/17 08: 21; Start 03/07/17 at 18:00 Amoxicillin (Amoxil) 500 mg [id number] PO Last administered on 03/08/17 08:05; Start 03/07/17 at 21:00; Stop 03/08/17 at 13:45; Status DC Trazodone HCl (Desyrel) 50 mg PRN QHS PRN PO INSOMNIA, MAY REPEAT X1; Start at 19:00 Quetiapine Fumarate (SEROquel) 25 mg TID@0900,1300,1700 PO Last administered on 03/09/17 17:25; Start 03/08/17 at 09:00; Stop 03/09/17 at 18:51; Status DC Amoxicillin (Amoxil) 500 mg [id number] PO Last administered on 03/15/17 13:01; Start 03/08/17 at 14:00; Stop 03/15/17 at 14:00; Status DC Quetiapine Fumarate (SEROquel) 37.5 mg TID@0900,1300,1700 PO Last administered on 03/16/17 17:33; Start 03/10/17 at 09:00; Stop 03/16/17 at 18:36; Status DC Bisacodyl (Dulcolax Supp) 10 mg PRN DAILY PRN [place] CONSTIPATION; Start 03/15/17 at 07:45 Sodium Biphosphate/ Sodium Phosphate (Fleet Adult) 133 ml 1X ONCE [place] Last administered on 03/15/17 09:28; Start 03/15/17 at 09:15; Stop 03/15/17 at 09:16 ; Status DC Sodium Biphosphate/ Sodium Phosphate (Fleet Adult) 133 ml PRN DAILY PRN [place] CONSTIPATION; Start 03/16/17 at 09:00 Quetiapine Fumarate (SEROquel) 37.5 mg BID@1300,1700 PO Last administered on 16:38; Start 03/17/17 at 13:00 Quetiapine Fumarate (SEROquel) 50 mg DAILY PO Last administered on 03/18/17 10 :03; Start 03/17/17 at 09:00 Active Scripts Active Reported Trazodone Hcl 50 Mg Tablet 1 Tab PO QHS PRN Seroquel (Quetiapine Fumarate) 50 Mg Tablet 1 Tab PO DAILY Seroquel (Quetiapine Fumarate) 25 Mg Tablet 37.5 Mg PO BIDAFTMEAL Zyprexa Zydis (Olanzapine) 5 Mg Tab.rapdis 2.5 Mg PO PRN Q2HR PRN Celexa (Citalopram Hydrobromide) 20 Mg Tablet 1 Tab PO DAILY Fleet Enema (Na Phos,M-B/Na Phos,Di-Ba) 133 Ml Enema 1 Each RC DAILY PRN Analgesic [place] (Methyl Salicylate/Menthol) 28 Gm Oint...g. 1 Mike TP QID PRN Milk Of Magnesia (Magnesium Hydroxide) 2,400 Mg/10 Ml Oral.susp 2,400 Mg PO HS PRN Mag-Al Plus Xs Suspension (Mag Hydrox/Al Hydrox/Simeth) 30 Ml Oral.susp 15 Ml PO QIDAFTMEAL PRN Marinol (Dronabinol) 2.5 Mg Capsule 2.5 Mg PO DAILY D3-50 (Cholecalciferol (Vitamin D3)) 50,000 Unit Capsule 1 Cap PO WEEKLY Bisacodyl 10 Mg Supp.rect 10 Mg RC PRN DAILY PRN Tramadol Hcl (Tramadol HCl) 50 Mg Tablet 50 Mg PO PRN Q6HRS PRN Melatonin 3 Mg Tablet 3 Mg PO PRN QHS PRN Meclizine Hcl 25 Mg Tablet 25 Mg PO PRN TID PRN Hydralazine Hcl 10 Mg Tablet 10 Mg PO PRN TID PRN Duoneb 0.5-3(2.5) Mg/3 Ml (Albuterol/Ipratropium) 3 Ml Ampul.neb 3 Ml NEB PRN Q4HRS PRN Tylenol (Acetaminophen) 325 Mg Tablet 325 Mg PO PRN Q6HRS PRN B Complex (Vitamin B Complex) 1 Each Tablet 1 Tab PO DAILYWLUN Prednisone 10 Mg Tablet 10 Mg PO DAILY Olanzapine 5 Mg Tablet 5 Mg PO BID Mirtazapine 15 Mg Tablet 15 Mg PO QHS Levofloxacin 500 Mg Tablet 250 Mg PO DAILY Ferrous Sulfate 325 Mg Tablet 325 Mg PO DAILYWLUN Famotidine 20 Mg Tablet 20 Mg PO BID Aspirin 81 Mg Tab.chew 81 Mg PO DAILY Allopurinol 100 Mg Tablet 100 Mg PO DAILY Diagnosis: Problems: (1) Dementia (2) Leukocytosis (3) Anxiety disorder (4) Dementia, vascular, with depression (5) Dementia, vascular, with delusions (6) Dementia in Alzheimer's disease with depression (7) Dementia in Alzheimer's disease with delusions (8) Impulse control disorder AARON DUNN MD Mar 18, 2017 20:45
--- NOTE | 2017-03-18 22:51 | PN ---
DATE: 03/17/2017 PSYCHIATRIC PROGRESS NOTE This is a late entry for 03/17/2017, covers elements not covered in my initial note of 03/17/2017. SUBJECTIVE: I met with the patient the evening of 03/17/2017. The patient is somewhat irritable in the morning, labile, received Zyprexa at 0840 hours. Exit seeking behaviors improved. He was checking the doors first thing in the morning and then he was more cooperative after the p.r.n. REVIEW OF SYSTEMS: Ambulation impaired in a wheelchair. No CV, , pulmonary, eye, ENT system symptoms on review. Reliability poor. MENTAL STATUS EXAM: Oriented to himself. Insight, judgment, recent and remote memory, attention, concentration, fund of knowledge poor, consistent with his diagnosis mentioned in my initial note. PLAN: Continue current psychotropics, Remeron, melatonin, Zyprexa p.r.n., Celexa, Seroquel along with trazodone at bedtime p.r.n. Reviewed drug interactions. Risk/benefit ratio favors no further change. MAN Colton DUNN MD DR: IDANIA/herlinda JOB#: [id number] / [id number]
--- NOTE | 2017-03-19 00:08 | NUR ---
Behavior Intervention Response and Plan: BIRP Note: Behavior: Assumed Care of patient, patient located in Day Room at shift change. Patient exhibited the following behavior Calm, Compliant, Cooperative. Brief assessment on rounds of vital signs, medication needs, lab studies, and pain. Treatment plan problems 1-2. Intervention: Patient assessed and the following interventions initiated safety checks 15 Minute Checks Cognitive Assessment , Head to toe Assessment , Medications. Response: After interactions and interventions patient responded in the following manner, Interactive, Disorganized, Compliant. Continue to assess behaviors and condition will continue to monitor throughout the shift as needed. Patient educated on ADL's, and hand hygiene. Plan: Continue to monitor Master Treatment Plan for patient's progress toward short term goals of Decreased Agitation, Decreased Anxiety, terminal supervisor goals to return to previous living setting vs placement. Continue to assess patient for changes in above assessment. Monitor for medication needs, pain, and safety concerns. Hourly rounding performed to ensure safe environment.
[2017-03-19 06:28] VITALS: BP 127/64
[2017-03-19] MEDS: FAMOTIDINE 20 MG TABLET PO SCH ×2 (08:04→19:33)
[2017-03-19] MEDS: ASPIRIN 81 MG TAB.CHEW PO SCH (08:04)
[2017-03-19] MEDS: DRONABINOL 2.5 MG CAPSULE PO SCH (08:04)
[2017-03-19] MEDS: CITALOPRAM 20 MG TABLET. PO SCH (08:04)
[2017-03-19] MEDS: ALLOPURINOL 100 MG TABLET. PO SCH (08:04)
[2017-03-19] MEDS: QUEtiapine 50 MG TABLET. PO SCH (08:05)
[2017-03-19] MEDS: predniSONE 10 MG TABLET PO SCH (08:05)
--- NOTE | 2017-03-19 09:13 | NUR ---
LANDON left message for Werner in Admissions at [facility] in [place] regarding dc plans for today. LANDON will wait for a call back before scheduling further dc plans w/PT's dtrScott.
--- NOTE | 2017-03-19 09:41 | NUR ---
Behavior Intervention Response and Plan: BIRP Note: Behavior: Assumed Care of patient, patient located in Dining Room at shift change. Patient exhibited the following behavior Calm, Disorganized, Cooperative. Brief assessment on rounds of vital signs, medication needs, lab studies, and pain. Treatment plan problems 1-2. Intervention: Patient assessed and the following interventions initiated safety checks 15 Minute Checks Personal Alarm in place , Cognitive Assessment , Head to toe Assessment. Response: After interactions and interventions patient responded in the following manner, Calm , Compliant ,Cooperative. Continue to assess behaviors and condition will continue to monitor throughout the shift as needed. Patient educated on ADL's, and hand hygiene. Plan: Continue to monitor Master Treatment Plan for patient's progress toward short term goals of Decreased Agitation, Decreased Anxiety, hydrotherapist goals to return to previous living setting vs placement. Continue to assess patient for changes in above assessment. Monitor for medication needs, pain, and safety concerns. Hourly rounding performed to ensure safe environment.
--- NOTE | 2017-03-19 10:06 | NUR ---
LANDON spoke w/PT's dtr/DPOA regarding dc plans today. LANDON reported leaving a message this am for Werner in Admissions at [facility] in [place]. Elaine w/ follow up w/[facility] and contact this LANDON w/further information.
[2017-03-19] MEDS: QUEtiapine 25 MG TABLET. PO SCH ×2 (12:05→17:08)
[2017-03-19] MEDS: VITAMIN B COMPLEX CAPSULE. PO SCH (12:05)
[2017-03-19] MEDS: FERROUS SULFATE 325 MG TABLET. PO SCH (12:05)
--- NOTE | 2017-03-19 14:07 | NUR ---
SW spoke w/PT's dtr regarding current status of dc for Pt. Scott will run errands in the area and check back with this facility for further dc details. LANDON received a message from [facility] stating based on the clinical notes provided, it appears Pt's behaviors would not be able to be managed at the facility. LANDON provided SHERLEY Soliman w/contact information to call and follow up w/additional details and explanations fo PT's behaviors from the week as they tend to be related to being woken up very early.
--- NOTE | 2017-03-19 14:15 | PDOC ---
Exam Hector Demential Exam: Hector Note: Please also refer to the separate dictated note~for this date of service dictated separately.~Patient seen individually. Discussed the patient with Nursing staff reviewed the chart.~Reviewed interim history and current functioning. Reviewed vital signs,~Labs/ Radiology~and current medications noted below. Continue current treatment with the changes noted in the dictated addendum note Assessment: Vital Signs: Vital Signs Date Time Temp Pulse Resp B/P (MAP) Pulse Ox O2 Delivery O2 Flow Rate FiO2 03/19/17 06:28 97.7 77 16 127/64 (85) 93 03/15/17 06:46 Room Air I&O Intake and Output 03/20/17 06:59 Intake Total 900 ml Balance 900 ml Intake Oral 900 ml # Bowel Movements 1 Current Medications: Meds: Current Medications Multi-Ingredient Ointment (Analgesic [place]) 1 delvis PRN QID PRN TP MUSCLE PAIN; Start 02/27/17 at 16:30 Al Hydroxide/Mg Hydroxide (Mylanta Plus Xs) 15 ml PRN AFTMEALHC PRN PO DYSPEPSIA; Start 02/27/17 at 16:30 Magnesium Hydroxide (Milk Of Magnesia) 2,400 mg PRN QHS PRN PO CONSTIPATION Last administered on 03/18/17 17:07; Start 02/27/17 at 16:30 Mirtazapine (Remeron) 15 mg QHS PO Last administered on 03/18/17 20:14; Start 02/27/17 at 21:00 Olanzapine (ZyPREXA) 5 mg BID PO Last administered on 02/28/17 09:59; Start at 21:00; Stop 02/28/17 at 19:18; Status DC Meclizine HCl (Antivert) 25 mg PRN TID PRN PO NAUSEA/ VOMITTING; Start at 16:45 Melatonin 3 mg PRN QHS PRN PO INSOMNIA Last administered on 03/12/17 20:24; Start 02/27/17 at 16:45 Info (FLU VACCINE per PROTOCOL) 1 ea 1X ONCE MC ; Start 02/27/17 at 18:15; Stop 02/27/17 at 18:16; Status UNV Influenza Virus Vaccine Quadrival (Fluarix Quad [id number] Syringe) 0.5 ml ONCE ONCE VAX IM Last administered on 02/28/17 12:19; Start 02/28/17 at 12:00; Stop 02/28/17 at 12:01; Status DC Olanzapine (ZyPREXA ZYDIS) 2.5 mg PRN Q2HR PRN PO PSYCHOSIS Last administered on 03/18/17 06:26; Start 02/27/17 at 19:00 Acetaminophen (Tylenol) 325 mg PRN Q6HRS PRN PO PAIN / TEMP; Start 02/28/17 at 07:15 Allopurinol (Zyloprim) 100 mg DAILY PO Last administered on 03/19/17 08:04; Start 02/28/17 at 09:00 Aspirin (Children'S Aspirin) 81 mg DAILY PO Last administered on 03/19/17 08: 04; Start 02/28/17 at 09:00 Famotidine (Pepcid) 20 mg BID PO Last administered on 03/19/17 08:04; Start at 09:00 Ferrous Sulfate (Feosol) 325 mg DAILYWLUN PO Last administered on 03/19/17 12: 05; Start 02/28/17 at 12:00 Hydralazine HCl (Apresoline) 10 mg PRN TID PRN PO HYPERTENSION, SEE COMMENTS; Start 02/28/17 at 07:15 Albuterol/ Ipratropium (Duoneb) 3 ml PRN Q4HRS PRN NEB SHORTNESS OF BREATH Last administered on 03/08/17 20:50; Start 02/28/17 at 07:15 Levofloxacin (Levaquin) 250 mg DAILY PO Last administered on 02/28/17 09:59; Start 02/28/17 at 09:00; Stop 02/28/17 at 13:16; Status DC Prednisone (Prednisone) 10 mg DAILY PO Last administered on 03/19/17 08:05; Start 02/28/17 at 09:00 Tramadol HCl (Ultram) 50 mg PRN Q6HRS PRN PO PAIN; Start 02/28/17 at 07:15 Vitamin B Complex 1 cap DAILYWLUN PO Last administered on 03/19/17 12:05; Start 02/28/17 at 12:00 Olanzapine (ZyPREXA) 2.5 mg BID PO Last administered on 03/02/17 08:46; Start 02/28/17 at 21:00; Stop 03/02/17 at 19:03; Status DC Sertraline HCl (Zoloft) 25 mg DAILY PO Last administered on 03/02/17 08:46; Start 03/01/17 at 09:00; Stop 03/02/17 at 19:03; Status DC Olanzapine (ZyPREXA) 2.5 mg HS PO Last administered on 03/04/17 20:26; Start 03/02/17 at 21:00; Stop 03/05/17 at 18:34; Status DC Citalopram Hydrobromide (CeleXA) 10 mg DAILY PO Last administered on 03/05/17 09:23; Start 03/03/17 at 09:00; Stop 03/05/17 at 10:00; Status DC Citalopram Hydrobromide (CeleXA) 20 mg DAILY PO Last administered on 03/19/17 08:04; Start 03/06/17 at 09:00 Dronabinol (Marinol) 2.5 mg DAILY PO Last administered on 03/19/17 08:04; Start 03/03/17 at 09:00 Quetiapine Fumarate (SEROquel) 12.5 mg 0900 PO Last administered on 03/07/17 09:50; Start 03/05/17 at 09:00; Stop 03/07/17 at 14:08; Status DC Quetiapine Fumarate (SEROquel) 12.5 mg BID@0900,1700 PO Last administered on 16:48; Start 03/07/17 at 17:00; Stop 03/07/17 at 19:18; Status DC Vitamin D (Vitamin D3) 50,000 unit WEEKLY PO Last administered on 03/14/17 08: 21; Start 03/07/17 at 18:00 Amoxicillin (Amoxil) 500 mg [id number] PO Last administered on 03/08/17 08:05; Start 03/07/17 at 21:00; Stop 03/08/17 at 13:45; Status DC Trazodone HCl (Desyrel) 50 mg PRN QHS PRN PO INSOMNIA, MAY REPEAT X1; Start at 19:00 Quetiapine Fumarate (SEROquel) 25 mg TID@0900,1300,1700 PO Last administered on 03/09/17 17:25; Start 03/08/17 at 09:00; Stop 03/09/17 at 18:51; Status DC Amoxicillin (Amoxil) 500 mg [id number] PO Last administered on 03/15/17 13:01; Start 03/08/17 at 14:00; Stop 03/15/17 at 14:00; Status DC Quetiapine Fumarate (SEROquel) 37.5 mg TID@0900,1300,1700 PO Last administered on 03/16/17 17:33; Start 03/10/17 at 09:00; Stop 03/16/17 at 18:36; Status DC Bisacodyl (Dulcolax Supp) 10 mg PRN DAILY PRN DC CONSTIPATION; Start 03/15/17 at 07:45 Sodium Biphosphate/ Sodium Phosphate (Fleet Adult) 133 ml 1X ONCE DC Last administered on 03/15/17 09:28; Start 03/15/17 at 09:15; Stop 03/15/17 at 09:16 ; Status DC Sodium Biphosphate/ Sodium Phosphate (Fleet Adult) 133 ml PRN DAILY PRN DC CONSTIPATION; Start 03/16/17 at 09:00 Quetiapine Fumarate (SEROquel) 37.5 mg BID@1300,1700 PO Last administered on 12:05; Start 03/17/17 at 13:00 Quetiapine Fumarate (SEROquel) 50 mg DAILY PO Last administered on 03/19/17 08 :05; Start 03/17/17 at 09:00 Active Scripts Active Reported Trazodone Hcl 50 Mg Tablet 1 Tab PO QHS PRN Seroquel (Quetiapine Fumarate) 50 Mg Tablet 1 Tab PO DAILY Seroquel (Quetiapine Fumarate) 25 Mg Tablet 37.5 Mg PO BIDAFTMEAL Zyprexa Zydis (Olanzapine) 5 Mg Tab.rapdis 2.5 Mg PO PRN Q2HR PRN Celexa (Citalopram Hydrobromide) 20 Mg Tablet 1 Tab PO DAILY Fleet Enema (Na Phos,M-B/Na Phos,Di-Ba) 133 Ml Enema 1 Each RC DAILY PRN Marinol (Dronabinol) 2.5 Mg Capsule 2.5 Mg PO DAILY D3-50 (Cholecalciferol (Vitamin D3)) 50,000 Unit Capsule 1 Cap PO WEEKLY Bisacodyl 10 Mg Supp.rect 10 Mg RC PRN DAILY PRN Tramadol Hcl (Tramadol HCl) 50 Mg Tablet 50 Mg PO PRN Q6HRS PRN Melatonin 3 Mg Tablet 3 Mg PO PRN QHS PRN Meclizine Hcl 25 Mg Tablet 25 Mg PO PRN TID PRN Hydralazine Hcl 10 Mg Tablet 10 Mg PO PRN TID PRN Duoneb 0.5-3(2.5) Mg/3 Ml (Albuterol/Ipratropium) 3 Ml Ampul.neb 3 Ml NEB PRN Q4HRS PRN Tylenol (Acetaminophen) 325 Mg Tablet 325 Mg PO PRN Q6HRS PRN B Complex (Vitamin B Complex) 1 Each Tablet 1 Tab PO DAILYWLUN Prednisone 10 Mg Tablet 10 Mg PO DAILY Olanzapine 5 Mg Tablet 5 Mg PO BID Mirtazapine 15 Mg Tablet 15 Mg PO QHS Levofloxacin 500 Mg Tablet 250 Mg PO DAILY Ferrous Sulfate 325 Mg Tablet 325 Mg PO DAILYWLUN Famotidine 20 Mg Tablet 20 Mg PO BID Aspirin 81 Mg Tab.chew 81 Mg PO DAILY Allopurinol 100 Mg Tablet 100 Mg PO DAILY Diagnosis: Problems: (1) Impulse control disorder (2) Dementia in Alzheimer's disease with delusions (3) Dementia in Alzheimer's disease with depression (4) Anxiety disorder AARON DUNN MD Mar 19, 2017 14:15
[2017-03-19 16:14] VITALS: BP 133/78
[2017-03-19] MEDS: MIRTAZAPINE 15 MG TABLET PO SCH (19:34)
[2017-03-19] MEDS: MELATONIN 3 MG TABLET PO PRN (19:34)
--- NOTE | 2017-03-19 20:32 | PDOC ---
Exam Hector Demential Exam: Hector Note: Please also refer to the separate dictated note~for this date of service dictated separately.~Patient seen individually. Discussed the patient with Nursing staff reviewed the chart.~Reviewed interim history and current functioning. Reviewed vital signs,~Labs/ Radiology~and current medications noted below. Continue current treatment with the changes noted in the dictated addendum note Assessment: Vital Signs: Vital Signs Date Time Temp Pulse Resp B/P (MAP) Pulse Ox O2 Delivery O2 Flow Rate FiO2 03/19/17 16:14 97.2 86 20 133/78 (96) 94 Room Air I&O Intake and Output 03/20/17 07:00 Intake Total 1140 ml Balance 1140 ml Intake Oral 1140 ml # Bowel Movements 1 Current Medications: Meds: Current Medications Multi-Ingredient Ointment (Analgesic [place]) 1 delvis PRN QID PRN TP MUSCLE PAIN; Start 02/27/17 at 16:30 Al Hydroxide/Mg Hydroxide (Mylanta Plus Xs) 15 ml PRN AFTMEALHC PRN PO DYSPEPSIA; Start 02/27/17 at 16:30 Magnesium Hydroxide (Milk Of Magnesia) 2,400 mg PRN QHS PRN PO CONSTIPATION Last administered on 03/18/17 17:07; Start 02/27/17 at 16:30 Mirtazapine (Remeron) 15 mg QHS PO Last administered on 03/19/17 19:34; Start 02/27/17 at 21:00 Olanzapine (ZyPREXA) 5 mg BID PO Last administered on 02/28/17 09:59; Start at 21:00; Stop 02/28/17 at 19:18; Status DC Meclizine HCl (Antivert) 25 mg PRN TID PRN PO NAUSEA/ VOMITTING; Start at 16:45 Melatonin 3 mg PRN QHS PRN PO INSOMNIA Last administered on 03/19/17 19:34; Start 02/27/17 at 16:45 Info (FLU VACCINE per PROTOCOL) 1 ea 1X ONCE MC ; Start 02/27/17 at 18:15; Stop 02/27/17 at 18:16; Status UNV Influenza Virus Vaccine Quadrival (Fluarix Quad [id number] Syringe) 0.5 ml ONCE ONCE VAX IM Last administered on 02/28/17 12:19; Start 02/28/17 at 12:00; Stop 02/28/17 at 12:01; Status DC Olanzapine (ZyPREXA ZYDIS) 2.5 mg PRN Q2HR PRN PO PSYCHOSIS Last administered on 03/18/17 06:26; Start 02/27/17 at 19:00 Acetaminophen (Tylenol) 325 mg PRN Q6HRS PRN PO PAIN / TEMP; Start 02/28/17 at 07:15 Allopurinol (Zyloprim) 100 mg DAILY PO Last administered on 03/19/17 08:04; Start 02/28/17 at 09:00 Aspirin (Children'S Aspirin) 81 mg DAILY PO Last administered on 03/19/17 08: 04; Start 02/28/17 at 09:00 Famotidine (Pepcid) 20 mg BID PO Last administered on 03/19/17 19:33; Start at 09:00 Ferrous Sulfate (Feosol) 325 mg DAILYWLUN PO Last administered on 03/19/17 12: 05; Start 02/28/17 at 12:00 Hydralazine HCl (Apresoline) 10 mg PRN TID PRN PO HYPERTENSION, SEE COMMENTS; Start 02/28/17 at 07:15 Albuterol/ Ipratropium (Duoneb) 3 ml PRN Q4HRS PRN NEB SHORTNESS OF BREATH Last administered on 03/08/17 20:50; Start 02/28/17 at 07:15 Levofloxacin (Levaquin) 250 mg DAILY PO Last administered on 02/28/17 09:59; Start 02/28/17 at 09:00; Stop 02/28/17 at 13:16; Status DC Prednisone (Prednisone) 10 mg DAILY PO Last administered on 03/19/17 08:05; Start 02/28/17 at 09:00 Tramadol HCl (Ultram) 50 mg PRN Q6HRS PRN PO PAIN; Start 02/28/17 at 07:15 Vitamin B Complex 1 cap DAILYWLUN PO Last administered on 03/19/17 12:05; Start 02/28/17 at 12:00 Olanzapine (ZyPREXA) 2.5 mg BID PO Last administered on 03/02/17 08:46; Start 02/28/17 at 21:00; Stop 03/02/17 at 19:03; Status DC Sertraline HCl (Zoloft) 25 mg DAILY PO Last administered on 03/02/17 08:46; Start 03/01/17 at 09:00; Stop 03/02/17 at 19:03; Status DC Olanzapine (ZyPREXA) 2.5 mg HS PO Last administered on 03/04/17 20:26; Start 03/02/17 at 21:00; Stop 03/05/17 at 18:34; Status DC Citalopram Hydrobromide (CeleXA) 10 mg DAILY PO Last administered on 03/05/17 09:23; Start 03/03/17 at 09:00; Stop 03/05/17 at 10:00; Status DC Citalopram Hydrobromide (CeleXA) 20 mg DAILY PO Last administered on 03/19/17 08:04; Start 03/06/17 at 09:00 Dronabinol (Marinol) 2.5 mg DAILY PO Last administered on 03/19/17 08:04; Start 03/03/17 at 09:00 Quetiapine Fumarate (SEROquel) 12.5 mg 0900 PO Last administered on 03/07/17 09:50; Start 03/05/17 at 09:00; Stop 03/07/17 at 14:08; Status DC Quetiapine Fumarate (SEROquel) 12.5 mg BID@0900,1700 PO Last administered on 16:48; Start 03/07/17 at 17:00; Stop 03/07/17 at 19:18; Status DC Vitamin D (Vitamin D3) 50,000 unit WEEKLY PO Last administered on 03/14/17 08: 21; Start 03/07/17 at 18:00 Amoxicillin (Amoxil) 500 mg [id number] PO Last administered on 03/08/17 08:05; Start 03/07/17 at 21:00; Stop 03/08/17 at 13:45; Status DC Trazodone HCl (Desyrel) 50 mg PRN QHS PRN PO INSOMNIA, MAY REPEAT X1; Start at 19:00 Quetiapine Fumarate (SEROquel) 25 mg TID@0900,1300,1700 PO Last administered on 03/09/17 17:25; Start 03/08/17 at 09:00; Stop 03/09/17 at 18:51; Status DC Amoxicillin (Amoxil) 500 mg [id number] PO Last administered on 03/15/17 13:01; Start 03/08/17 at 14:00; Stop 03/15/17 at 14:00; Status DC Quetiapine Fumarate (SEROquel) 37.5 mg TID@0900,1300,1700 PO Last administered on 03/16/17 17:33; Start 03/10/17 at 09:00; Stop 03/16/17 at 18:36; Status DC Bisacodyl (Dulcolax Supp) 10 mg PRN DAILY PRN DC CONSTIPATION; Start 03/15/17 at 07:45 Sodium Biphosphate/ Sodium Phosphate (Fleet Adult) 133 ml 1X ONCE DC Last administered on 03/15/17 09:28; Start 03/15/17 at 09:15; Stop 03/15/17 at 09:16 ; Status DC Sodium Biphosphate/ Sodium Phosphate (Fleet Adult) 133 ml PRN DAILY PRN DC CONSTIPATION; Start 03/16/17 at 09:00 Quetiapine Fumarate (SEROquel) 37.5 mg BID@1300,1700 PO Last administered on 17:08; Start 03/17/17 at 13:00 Quetiapine Fumarate (SEROquel) 50 mg DAILY PO Last administered on 03/19/17 08 :05; Start 03/17/17 at 09:00 Active Scripts Active Reported Trazodone Hcl 50 Mg Tablet 1 Tab PO QHS PRN Seroquel (Quetiapine Fumarate) 50 Mg Tablet 1 Tab PO DAILY Seroquel (Quetiapine Fumarate) 25 Mg Tablet 37.5 Mg PO BIDAFTMEAL Zyprexa Zydis (Olanzapine) 5 Mg Tab.rapdis 2.5 Mg PO PRN Q2HR PRN Celexa (Citalopram Hydrobromide) 20 Mg Tablet 1 Tab PO DAILY Fleet Enema (Na Phos,M-B/Na Phos,Di-Ba) 133 Ml Enema 1 Each RC DAILY PRN Marinol (Dronabinol) 2.5 Mg Capsule 2.5 Mg PO DAILY D3-50 (Cholecalciferol (Vitamin D3)) 50,000 Unit Capsule 1 Cap PO WEEKLY Bisacodyl 10 Mg Supp.rect 10 Mg RC PRN DAILY PRN Tramadol Hcl (Tramadol HCl) 50 Mg Tablet 50 Mg PO PRN Q6HRS PRN Melatonin 3 Mg Tablet 3 Mg PO PRN QHS PRN Meclizine Hcl 25 Mg Tablet 25 Mg PO PRN TID PRN Hydralazine Hcl 10 Mg Tablet 10 Mg PO PRN TID PRN Duoneb 0.5-3(2.5) Mg/3 Ml (Albuterol/Ipratropium) 3 Ml Ampul.neb 3 Ml NEB PRN Q4HRS PRN Tylenol (Acetaminophen) 325 Mg Tablet 325 Mg PO PRN Q6HRS PRN B Complex (Vitamin B Complex) 1 Each Tablet 1 Tab PO DAILYWLUN Prednisone 10 Mg Tablet 10 Mg PO DAILY Olanzapine 5 Mg Tablet 5 Mg PO BID Mirtazapine 15 Mg Tablet 15 Mg PO QHS Levofloxacin 500 Mg Tablet 250 Mg PO DAILY Ferrous Sulfate 325 Mg Tablet 325 Mg PO DAILYWLUN Famotidine 20 Mg Tablet 20 Mg PO BID Aspirin 81 Mg Tab.chew 81 Mg PO DAILY Allopurinol 100 Mg Tablet 100 Mg PO DAILY Diagnosis: Problems: (1) Dementia (2) Anxiety disorder (3) Dementia, vascular, with depression (4) Dementia, vascular, with delusions (5) Dementia in Alzheimer's disease with depression (6) Dementia in Alzheimer's disease with delusions (7) Impulse control disorder AARON DUNN MD Mar 19, 2017 20:32
--- NOTE | 2017-03-19 23:11 | NUR ---
Behavior Intervention Response and Plan: BIRP Note: Behavior: Assumed Care of patient, patient located in Day Room at shift change. Patient exhibited the following behavior Calm, Compliant, Cooperative. Brief assessment on rounds of vital signs, medication needs, lab studies, and pain. Treatment plan problems 1-2. Intervention: Patient assessed and the following interventions initiated safety checks 15 Minute Checks Cognitive Assessment , Head to toe Assessment , Medications. Response: After interactions and interventions patient responded in the following manner, Interactive, Disorganized, Compliant. Continue to assess behaviors and condition will continue to monitor throughout the shift as needed. Patient educated on ADL's, and hand hygiene. 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 Continue to assess patient for changes in above assessment. Monitor for medication needs, pain, and safety concerns. Hourly rounding performed to ensure safe environment.
--- NOTE | 2017-03-19 23:46 | PN ---
DATE: 03/18/2017 PSYCHIATRIC PROGRESS NOTE This late entry 03/18/2017 covers elements, not covered in my initial of 03/18/2017. SUBJECTIVE: I met with the patient evening of 03/18/2017. The patient remains confused, agitated in the morning, checking the doors, received Zyprexa p.r.n. REVIEW OF SYSTEMS: Ambulation impaired, in wheelchair. No CV, , pulmonary, eye, ENT system symptoms on review. Reliability poor. MENTAL STATUS EXAM: Oriented to himself. Insight, judgment, recent and remote memory, attention, concentration, fund of knowledge poor, consistent with his diagnosis mentioned in my initial note. PLAN: Continue current psychotropics. Reviewed drug interactions. Risk/benefit ratio favors no further change. MAN Colton DUNN MD DR: IDANIA/herlinda JOB#: [id number] / [id number]
[2017-03-20 07:08] VITALS: BP 159/79
[2017-03-20] MEDS: ASPIRIN 81 MG TAB.CHEW PO SCH (08:35)
[2017-03-20] MEDS: predniSONE 10 MG TABLET PO SCH (08:35)
[2017-03-20] MEDS: QUEtiapine 50 MG TABLET. PO SCH (08:36)
[2017-03-20] MEDS: ALLOPURINOL 100 MG TABLET. PO SCH (08:36)
[2017-03-20] MEDS: FAMOTIDINE 20 MG TABLET PO SCH ×2 (08:36→19:57)
[2017-03-20] MEDS: CITALOPRAM 20 MG TABLET. PO SCH (08:36)
[2017-03-20] MEDS: FERROUS SULFATE 325 MG TABLET. PO SCH (08:40)
[2017-03-20] MEDS: VITAMIN B COMPLEX CAPSULE. PO SCH (08:40)
[2017-03-20] MEDS: DRONABINOL 2.5 MG CAPSULE PO SCH (08:40)
--- NOTE | 2017-03-20 11:23 | NUR ---
[facility] contactged PT's dtr/Scott RASCON regarding admit to [facility]. Scott has a call into admissions at [facility] and will follow up w/a drop-in visit at [facility]. Scott to contact [facility] w/details regarding their mtg. If [facility] is unable to accept PT., [facility] will send skilled info to [facility] in [place].
--- NOTE | 2017-03-20 11:39 | NUR ---
SW received return call from Pt's dtr, [facility] in [place] is unable to accept Pt. due to his exit seeking behaviors. SW will send referral to [facility] in [place].
[2017-03-20] MEDS: QUEtiapine 25 MG TABLET. PO SCH ×2 (13:19→17:00)
--- NOTE | 2017-03-20 14:32 | NUR ---
SW faxed Skilled admit referral to the requested facilities per Pt's dtr: [facility], [place], [facility] and [facility] (all facilities in [facility]).
[2017-03-20 16:03] VITALS: BP 143/79
--- NOTE | 2017-03-20 16:35 | NUR ---
Behavior Intervention Response and Plan: BIRP Note: Behavior: Assumed Care of patient, patient located in Day Room at shift change. Patient exhibited the following behavior Calm, Disorganized, Compliant. Brief assessment on rounds of vital signs, medication needs, lab studies, and pain. Treatment plan problems . Intervention: Patient assessed and the following interventions initiated safety checks 15 Minute Checks Cognitive Assessment , Head to toe Assessment , Medications. Response: After interactions and interventions patient responded in the following manner, Calm , Disorganized ,Cooperative. Continue to assess behaviors and condition will continue to monitor throughout the shift as needed. Patient educated on ADL's, and hand hygiene. Plan: Continue to monitor Master Treatment Plan for patient's progress toward short term goals of Decreased Agitation, Decreased Aggression, alf goals to return to previous living setting vs placement. Continue to assess patient for changes in above assessment. Monitor for medication needs, pain, and safety concerns. Hourly rounding performed to ensure safe environment.
[2017-03-20] MEDS: MIRTAZAPINE 15 MG TABLET PO SCH (19:57)
--- NOTE | 2017-03-20 20:52 | PDOC ---
Exam Hector Demential Exam: Hector Note: Please also refer to the separate dictated note~for this date of service dictated separately.~Patient seen individually. Discussed the patient with Nursing staff reviewed the chart.~Reviewed interim history and current functioning. Reviewed vital signs,~Labs/ Radiology~and current medications noted below. Continue current treatment with the changes noted in the dictated addendum note Assessment: Vital Signs: Vital Signs Date Time Temp Pulse Resp B/P (MAP) Pulse Ox O2 Delivery O2 Flow Rate FiO2 03/20/17 16:03 98.0 86 19 143/79 (100) 95 03/19/17 16:14 Room Air I&O Intake and Output 03/21/17 07:00 Intake Total 600 ml Balance 600 ml Intake Oral 600 ml Current Medications: Meds: Current Medications Multi-Ingredient Ointment (Analgesic [place]) 1 delvis PRN QID PRN TP MUSCLE PAIN; Start 02/27/17 at 16:30 Al Hydroxide/Mg Hydroxide (Mylanta Plus Xs) 15 ml PRN AFTMEALHC PRN PO DYSPEPSIA; Start 02/27/17 at 16:30 Magnesium Hydroxide (Milk Of Magnesia) 2,400 mg PRN QHS PRN PO CONSTIPATION Last administered on 03/18/17 17:07; Start 02/27/17 at 16:30 Mirtazapine (Remeron) 15 mg QHS PO Last administered on 03/20/17 19:57; Start 02/27/17 at 21:00 Olanzapine (ZyPREXA) 5 mg BID PO Last administered on 02/28/17 09:59; Start at 21:00; Stop 02/28/17 at 19:18; Status DC Meclizine HCl (Antivert) 25 mg PRN TID PRN PO NAUSEA/ VOMITTING; Start at 16:45 Melatonin 3 mg PRN QHS PRN PO INSOMNIA Last administered on 03/19/17 19:34; Start 02/27/17 at 16:45 Info (FLU VACCINE per PROTOCOL) 1 ea 1X ONCE MC ; Start 02/27/17 at 18:15; Stop 02/27/17 at 18:16; Status UNV Influenza Virus Vaccine Quadrival (Fluarix Quad [id number] Syringe) 0.5 ml ONCE ONCE VAX IM Last administered on 02/28/17 12:19; Start 02/28/17 at 12:00; Stop 02/28/17 at 12:01; Status DC Olanzapine (ZyPREXA ZYDIS) 2.5 mg PRN Q2HR PRN PO PSYCHOSIS Last administered on 03/18/17 06:26; Start 02/27/17 at 19:00 Acetaminophen (Tylenol) 325 mg PRN Q6HRS PRN PO PAIN / TEMP; Start 02/28/17 at 07:15 Allopurinol (Zyloprim) 100 mg DAILY PO Last administered on 03/20/17 08:36; Start 02/28/17 at 09:00 Aspirin (Children'S Aspirin) 81 mg DAILY PO Last administered on 03/20/17 08: 35; Start 02/28/17 at 09:00 Famotidine (Pepcid) 20 mg BID PO Last administered on 03/20/17 19:57; Start 02/28/17 at 09:00 Ferrous Sulfate (Feosol) 325 mg DAILYWLUN PO Last administered on 03/20/17 08 :40; Start 02/28/17 at 12:00 Hydralazine HCl (Apresoline) 10 mg PRN TID PRN PO HYPERTENSION, SEE COMMENTS; Start 02/28/17 at 07:15 Albuterol/ Ipratropium (Duoneb) 3 ml PRN Q4HRS PRN NEB SHORTNESS OF BREATH Last administered on 03/08/17 20:50; Start 02/28/17 at 07:15 Levofloxacin (Levaquin) 250 mg DAILY PO Last administered on 02/28/17 09:59; Start 02/28/17 at 09:00; Stop 02/28/17 at 13:16; Status DC Prednisone (Prednisone) 10 mg DAILY PO Last administered on 03/20/17 08:35; Start 02/28/17 at 09:00 Tramadol HCl (Ultram) 50 mg PRN Q6HRS PRN PO PAIN; Start 02/28/17 at 07:15 Vitamin B Complex 1 cap DAILYWLUN PO Last administered on 03/20/17 08:40; Start 02/28/17 at 12:00 Olanzapine (ZyPREXA) 2.5 mg BID PO Last administered on 03/02/17 08:46; Start 02/28/17 at 21:00; Stop 03/02/17 at 19:03; Status DC Sertraline HCl (Zoloft) 25 mg DAILY PO Last administered on 03/02/17 08:46; Start 03/01/17 at 09:00; Stop 03/02/17 at 19:03; Status DC Olanzapine (ZyPREXA) 2.5 mg HS PO Last administered on 03/04/17 20:26; Start 03/02/17 at 21:00; Stop 03/05/17 at 18:34; Status DC Citalopram Hydrobromide (CeleXA) 10 mg DAILY PO Last administered on 03/05/17 09:23; Start 03/03/17 at 09:00; Stop 03/05/17 at 10:00; Status DC Citalopram Hydrobromide (CeleXA) 20 mg DAILY PO Last administered on 08:36; Start 03/06/17 at 09:00 Dronabinol (Marinol) 2.5 mg DAILY PO Last administered on 03/20/17 08:40; Start 03/03/17 at 09:00 Quetiapine Fumarate (SEROquel) 12.5 mg 0900 PO Last administered on 03/07/17 09:50; Start 03/05/17 at 09:00; Stop 03/07/17 at 14:08; Status DC Quetiapine Fumarate (SEROquel) 12.5 mg BID@0900,1700 PO Last administered on 16:48; Start 03/07/17 at 17:00; Stop 03/07/17 at 19:18; Status DC Vitamin D (Vitamin D3) 50,000 unit WEEKLY PO Last administered on 03/14/17 08: 21; Start 03/07/17 at 18:00 Amoxicillin (Amoxil) 500 mg [id number] PO Last administered on 03/08/17 08:05; Start 03/07/17 at 21:00; Stop 03/08/17 at 13:45; Status DC Trazodone HCl (Desyrel) 50 mg PRN QHS PRN PO INSOMNIA, MAY REPEAT X1; Start at 19:00 Quetiapine Fumarate (SEROquel) 25 mg TID@0900,1300,1700 PO Last administered on 03/09/17 17:25; Start 03/08/17 at 09:00; Stop 03/09/17 at 18:51; Status DC Amoxicillin (Amoxil) 500 mg [id number] PO Last administered on 03/15/17 13:01; Start 03/08/17 at 14:00; Stop 03/15/17 at 14:00; Status DC Quetiapine Fumarate (SEROquel) 37.5 mg TID@0900,1300,1700 PO Last administered on 03/16/17 17:33; Start 03/10/17 at 09:00; Stop 03/16/17 at 18:36; Status DC Bisacodyl (Dulcolax Supp) 10 mg PRN DAILY PRN [place] CONSTIPATION; Start 03/15/17 at 07:45 Sodium Biphosphate/ Sodium Phosphate (Fleet Adult) 133 ml 1X ONCE SC Last administered on 03/15/17 09:28; Start 03/15/17 at 09:15; Stop 03/15/17 at 09:16 ; Status DC Sodium Biphosphate/ Sodium Phosphate (Fleet Adult) 133 ml PRN DAILY PRN SC CONSTIPATION; Start 03/16/17 at 09:00 Quetiapine Fumarate (SEROquel) 37.5 mg BID@1300,1700 PO Last administered on 17:00; Start 03/17/17 at 13:00 Quetiapine Fumarate (SEROquel) 50 mg DAILY PO Last administered on 03/20/17 08:36; Start 03/17/17 at 09:00 Active Scripts Active Reported Trazodone Hcl 50 Mg Tablet 1 Tab PO QHS PRN Seroquel (Quetiapine Fumarate) 50 Mg Tablet 1 Tab PO DAILY Seroquel (Quetiapine Fumarate) 25 Mg Tablet 37.5 Mg PO BIDAFTMEAL Zyprexa Zydis (Olanzapine) 5 Mg Tab.rapdis 2.5 Mg PO PRN Q2HR PRN Celexa (Citalopram Hydrobromide) 20 Mg Tablet 1 Tab PO DAILY Fleet Enema (Na Phos,M-B/Na Phos,Di-Ba) 133 Ml Enema 1 Each RC DAILY PRN Marinol (Dronabinol) 2.5 Mg Capsule 2.5 Mg PO DAILY D3-50 (Cholecalciferol (Vitamin D3)) 50,000 Unit Capsule 1 Cap PO WEEKLY Bisacodyl 10 Mg Supp.rect 10 Mg RC PRN DAILY PRN Tramadol Hcl (Tramadol HCl) 50 Mg Tablet 50 Mg PO PRN Q6HRS PRN Melatonin 3 Mg Tablet 3 Mg PO PRN QHS PRN Meclizine Hcl 25 Mg Tablet 25 Mg PO PRN TID PRN Hydralazine Hcl 10 Mg Tablet 10 Mg PO PRN TID PRN Duoneb 0.5-3(2.5) Mg/3 Ml (Albuterol/Ipratropium) 3 Ml Ampul.neb 3 Ml NEB PRN Q4HRS PRN Tylenol (Acetaminophen) 325 Mg Tablet 325 Mg PO PRN Q6HRS PRN B Complex (Vitamin B Complex) 1 Each Tablet 1 Tab PO DAILYWLUN Prednisone 10 Mg Tablet 10 Mg PO DAILY Olanzapine 5 Mg Tablet 5 Mg PO BID Mirtazapine 15 Mg Tablet 15 Mg PO QHS Levofloxacin 500 Mg Tablet 250 Mg PO DAILY Ferrous Sulfate 325 Mg Tablet 325 Mg PO DAILYWLUN Famotidine 20 Mg Tablet 20 Mg PO BID Aspirin 81 Mg Tab.chew 81 Mg PO DAILY Allopurinol 100 Mg Tablet 100 Mg PO DAILY Diagnosis: Problems: (1) Dementia (2) Anxiety disorder (3) Dementia, vascular, with depression (4) Dementia, vascular, with delusions (5) Dementia in Alzheimer's disease with depression (6) Dementia in Alzheimer's disease with delusions (7) Impulse control disorder AARON DUNN MD Mar 20, 2017 20:52
[2017-03-21 06:09] VITALS: BP 193/79
[2017-03-21] MEDS: CITALOPRAM 20 MG TABLET. PO SCH (08:10)
[2017-03-21] MEDS: FAMOTIDINE 20 MG TABLET PO SCH ×2 (08:10→20:44)
[2017-03-21] MEDS: ASPIRIN 81 MG TAB.CHEW PO SCH (08:10)
[2017-03-21] MEDS: QUEtiapine 50 MG TABLET. PO SCH (08:10)
[2017-03-21] MEDS: ALLOPURINOL 100 MG TABLET. PO SCH (08:10)
[2017-03-21] MEDS: predniSONE 10 MG TABLET PO SCH (08:10)
[2017-03-21] MEDS: VITAMIN B COMPLEX CAPSULE. PO SCH (08:15)
[2017-03-21] MEDS: FERROUS SULFATE 325 MG TABLET. PO SCH (08:15)
[2017-03-21] MEDS: CHOLECALCIFEROL (VITAMIN D3) 50,000 UNIT CAPSULE PO SCH (08:15)
[2017-03-21] MEDS: DRONABINOL 2.5 MG CAPSULE PO SCH (08:15)
[2017-03-21 08:38] VITALS: BP 160/77
--- NOTE | 2017-03-21 10:30 | NUR ---
[facility] out to do an on-site assessment. Autumn from [facility] will contact this SW later today after discussing admit w/the facility team.
--- NOTE | 2017-03-21 11:29 | NUR ---
Behavior Intervention Response and Plan: BIRP Note: Behavior: Assumed Care of patient, patient located in Day Room at shift change. Patient exhibited the following behavior Calm, Compliant, Cooperative. Brief assessment on rounds of vital signs, medication needs, lab studies, and pain. Treatment plan problems . Intervention: Patient assessed and the following interventions initiated safety checks 15 Minute Checks Cognitive Assessment , Head to toe Assessment , Medications. Response: After interactions and interventions patient responded in the following manner, Calm , Disorganized ,Cooperative. Continue to assess behaviors and condition will continue to monitor throughout the shift as needed. Patient educated on ADL's, and hand hygiene. Plan: Continue to monitor Master Treatment Plan for patient's progress toward short term goals of Decreased Agitation, Decreased Aggression, lobsterman goals to return to previous living setting vs placement. Continue to assess patient for changes in above assessment. Monitor for medication needs, pain, and safety concerns. Hourly rounding performed to ensure safe environment.
[2017-03-21] MEDS: MAGNESIUM HYDROXIDE 2,400 MG/30 ML ORAL.SUSP. PO PRN (11:57)
--- NOTE | 2017-03-21 11:58 | NUR ---
Patient has history of constipation, has not had BM in a couple of days, and bowel sounds are hypoactive, PRN MOM given, will continue to monitor.
[2017-03-21] MEDS: QUEtiapine 25 MG TABLET. PO SCH ×2 (12:39→16:46)
[2017-03-21 16:43] VITALS: BP 121/72
--- NOTE | 2017-03-21 20:36 | PDOC ---
Exam Hector Demential Exam: Hector Note: Please also refer to the separate dictated note~for this date of service dictated separately.~Patient seen individually. Discussed the patient with Nursing staff reviewed the chart.~Reviewed interim history and current functioning. Reviewed vital signs,~Labs/ Radiology~and current medications noted below. Continue current treatment with the changes noted in the dictated addendum note Assessment: Vital Signs: Vital Signs Date Time Temp Pulse Resp B/P (MAP) Pulse Ox O2 Delivery O2 Flow Rate FiO2 03/21/17 16:43 98.1 79 17 121/72 (88) 94 03/19/17 16:14 Room Air I&O Intake and Output 03/22/17 07:00 Intake Total 1020 ml Balance 1020 ml Intake Oral 1020 ml Current Medications: Meds: Current Medications Multi-Ingredient Ointment (Analgesic [place]) 1 delvis PRN QID PRN TP MUSCLE PAIN; Start 02/27/17 at 16:30 Al Hydroxide/Mg Hydroxide (Mylanta Plus Xs) 15 ml PRN AFTMEALHC PRN PO DYSPEPSIA; Start 02/27/17 at 16:30 Magnesium Hydroxide (Milk Of Magnesia) 2,400 mg PRN QHS PRN PO CONSTIPATION Last administered on 03/21/17 11:57; Start 02/27/17 at 16:30 Mirtazapine (Remeron) 15 mg QHS PO Last administered on 03/20/17 19:57; Start 02/27/17 at 21:00 Olanzapine (ZyPREXA) 5 mg BID PO Last administered on 02/28/17 09:59; Start at 21:00; Stop 02/28/17 at 19:18; Status DC Meclizine HCl (Antivert) 25 mg PRN TID PRN PO NAUSEA/ VOMITTING; Start at 16:45 Melatonin 3 mg PRN QHS PRN PO INSOMNIA Last administered on 03/19/17 19:34; Start 02/27/17 at 16:45 Info (FLU VACCINE per PROTOCOL) 1 ea 1X ONCE MC ; Start 02/27/17 at 18:15; Stop 02/27/17 at 18:16; Status UNV Influenza Virus Vaccine Quadrival (Fluarix Quad [id number] Syringe) 0.5 ml ONCE ONCE VAX IM Last administered on 02/28/17 12:19; Start 02/28/17 at 12:00; Stop 02/28/17 at 12:01; Status DC Olanzapine (ZyPREXA ZYDIS) 2.5 mg PRN Q2HR PRN PO PSYCHOSIS Last administered on 03/18/17 06:26; Start 02/27/17 at 19:00 Acetaminophen (Tylenol) 325 mg PRN Q6HRS PRN PO PAIN / TEMP; Start 02/28/17 at 07:15 Allopurinol (Zyloprim) 100 mg DAILY PO Last administered on 03/21/17 08:10; Start 02/28/17 at 09:00 Aspirin (Children'S Aspirin) 81 mg DAILY PO Last administered on 03/21/17 08: 10; Start 02/28/17 at 09:00 Famotidine (Pepcid) 20 mg BID PO Last administered on 03/21/17 08:10; Start 02/28/17 at 09:00 Ferrous Sulfate (Feosol) 325 mg DAILYWLUN PO Last administered on 03/21/17 08 :15; Start 02/28/17 at 12:00 Hydralazine HCl (Apresoline) 10 mg PRN TID PRN PO HYPERTENSION, SEE COMMENTS; Start 02/28/17 at 07:15 Albuterol/ Ipratropium (Duoneb) 3 ml PRN Q4HRS PRN NEB SHORTNESS OF BREATH Last administered on 03/08/17 20:50; Start 02/28/17 at 07:15 Levofloxacin (Levaquin) 250 mg DAILY PO Last administered on 02/28/17 09:59; Start 02/28/17 at 09:00; Stop 02/28/17 at 13:16; Status DC Prednisone (Prednisone) 10 mg DAILY PO Last administered on 03/21/17 08:10; Start 02/28/17 at 09:00 Tramadol HCl (Ultram) 50 mg PRN Q6HRS PRN PO PAIN; Start 02/28/17 at 07:15 Vitamin B Complex 1 cap DAILYWLUN PO Last administered on 03/21/17 08:15; Start 02/28/17 at 12:00 Olanzapine (ZyPREXA) 2.5 mg BID PO Last administered on 03/02/17 08:46; Start 02/28/17 at 21:00; Stop 03/02/17 at 19:03; Status DC Sertraline HCl (Zoloft) 25 mg DAILY PO Last administered on 03/02/17 08:46; Start 03/01/17 at 09:00; Stop 03/02/17 at 19:03; Status DC Olanzapine (ZyPREXA) 2.5 mg HS PO Last administered on 03/04/17 20:26; Start 03/02/17 at 21:00; Stop 03/05/17 at 18:34; Status DC Citalopram Hydrobromide (CeleXA) 10 mg DAILY PO Last administered on 03/05/17 09:23; Start 03/03/17 at 09:00; Stop 03/05/17 at 10:00; Status DC Citalopram Hydrobromide (CeleXA) 20 mg DAILY PO Last administered on 08:10; Start 03/06/17 at 09:00 Dronabinol (Marinol) 2.5 mg DAILY PO Last administered on 03/21/17 08:15; Start 03/03/17 at 09:00 Quetiapine Fumarate (SEROquel) 12.5 mg 0900 PO Last administered on 03/07/17 09:50; Start 03/05/17 at 09:00; Stop 03/07/17 at 14:08; Status DC Quetiapine Fumarate (SEROquel) 12.5 mg BID@0900,1700 PO Last administered on 16:48; Start 03/07/17 at 17:00; Stop 03/07/17 at 19:18; Status DC Vitamin D (Vitamin D3) 50,000 unit WEEKLY PO Last administered on 03/21/17 08 :15; Start 03/07/17 at 18:00 Amoxicillin (Amoxil) 500 mg [id number] PO Last administered on 03/08/17 08:05; Start 03/07/17 at 21:00; Stop 03/08/17 at 13:45; Status DC Trazodone HCl (Desyrel) 50 mg PRN QHS PRN PO INSOMNIA, MAY REPEAT X1; Start at 19:00 Quetiapine Fumarate (SEROquel) 25 mg TID@0900,1300,1700 PO Last administered on 03/09/17 17:25; Start 03/08/17 at 09:00; Stop 03/09/17 at 18:51; Status DC Amoxicillin (Amoxil) 500 mg [id number] PO Last administered on 03/15/17 13:01; Start 03/08/17 at 14:00; Stop 03/15/17 at 14:00; Status DC Quetiapine Fumarate (SEROquel) 37.5 mg TID@0900,1300,1700 PO Last administered on 03/16/17 17:33; Start 03/10/17 at 09:00; Stop 03/16/17 at 18:36; Status DC Bisacodyl (Dulcolax Supp) 10 mg PRN DAILY PRN [place] CONSTIPATION; Start 03/15/17 at 07:45 Sodium Biphosphate/ Sodium Phosphate (Fleet Adult) 133 ml 1X ONCE MA Last administered on 03/15/17 09:28; Start 03/15/17 at 09:15; Stop 03/15/17 at 09:16 ; Status DC Sodium Biphosphate/ Sodium Phosphate (Fleet Adult) 133 ml PRN DAILY PRN MA CONSTIPATION; Start 03/16/17 at 09:00 Quetiapine Fumarate (SEROquel) 37.5 mg BID@1300,1700 PO Last administered on 16:46; Start 03/17/17 at 13:00 Quetiapine Fumarate (SEROquel) 50 mg DAILY PO Last administered on 03/21/17 08:10; Start 03/17/17 at 09:00 Active Scripts Active Reported Trazodone Hcl 50 Mg Tablet 1 Tab PO QHS PRN Seroquel (Quetiapine Fumarate) 50 Mg Tablet 1 Tab PO DAILY Seroquel (Quetiapine Fumarate) 25 Mg Tablet 37.5 Mg PO BIDAFTMEAL Zyprexa Zydis (Olanzapine) 5 Mg Tab.rapdis 2.5 Mg PO PRN Q2HR PRN Celexa (Citalopram Hydrobromide) 20 Mg Tablet 1 Tab PO DAILY Fleet Enema (Na Phos,M-B/Na Phos,Di-Ba) 133 Ml Enema 1 Each RC DAILY PRN Marinol (Dronabinol) 2.5 Mg Capsule 2.5 Mg PO DAILY D3-50 (Cholecalciferol (Vitamin D3)) 50,000 Unit Capsule 1 Cap PO WEEKLY Bisacodyl 10 Mg Supp.rect 10 Mg RC PRN DAILY PRN Tramadol Hcl (Tramadol HCl) 50 Mg Tablet 50 Mg PO PRN Q6HRS PRN Melatonin 3 Mg Tablet 3 Mg PO PRN QHS PRN Meclizine Hcl 25 Mg Tablet 25 Mg PO PRN TID PRN Hydralazine Hcl 10 Mg Tablet 10 Mg PO PRN TID PRN Duoneb 0.5-3(2.5) Mg/3 Ml (Albuterol/Ipratropium) 3 Ml Ampul.neb 3 Ml NEB PRN Q4HRS PRN Tylenol (Acetaminophen) 325 Mg Tablet 325 Mg PO PRN Q6HRS PRN B Complex (Vitamin B Complex) 1 Each Tablet 1 Tab PO DAILYWLUN Prednisone 10 Mg Tablet 10 Mg PO DAILY Olanzapine 5 Mg Tablet 5 Mg PO BID Mirtazapine 15 Mg Tablet 15 Mg PO QHS Levofloxacin 500 Mg Tablet 250 Mg PO DAILY Ferrous Sulfate 325 Mg Tablet 325 Mg PO DAILYWLUN Famotidine 20 Mg Tablet 20 Mg PO BID Aspirin 81 Mg Tab.chew 81 Mg PO DAILY Allopurinol 100 Mg Tablet 100 Mg PO DAILY Diagnosis: Problems: (1) Dementia (2) Leukocytosis (3) Anxiety disorder (4) Dementia, vascular, with depression (5) Dementia, vascular, with delusions (6) Dementia in Alzheimer's disease with depression (7) Dementia in Alzheimer's disease with delusions (8) Impulse control disorder AARON DUNN MD Mar 21, 2017 20:36
[2017-03-21] MEDS: MIRTAZAPINE 15 MG TABLET PO SCH (20:44)
--- NOTE | 2017-03-22 00:41 | NUR ---
Behavior Intervention Response and Plan: BIRP Note: Behavior: Assumed Care of patient, patient located in Day Room at shift change. Patient exhibited the following behavior Calm, Compliant, Cooperative. Brief assessment on rounds of vital signs, medication needs, lab studies, and pain. Treatment plan problems Dementia w/BD and Fall Risk. Intervention: Patient assessed and the following interventions initiated safety checks 15 Minute Checks Personal Alarm in place , Cognitive Assessment , Medications. Response: After interactions and interventions patient responded in the following manner, Calm , Compliant ,Cooperative. Continue to assess behaviors and condition will continue to monitor throughout the shift as needed. Patient educated on ADL's, and hand hygiene. Plan: Continue to monitor Master Treatment Plan for patient's progress toward short term goals of Decreased Agitation, Decreased Anxiety, longterm goals to return to previous living setting vs placement. Continue to assess patient for changes in above assessment. Monitor for medication needs, pain, and safety concerns. Hourly rounding performed to ensure safe environment.
--- NOTE | 2017-03-22 06:06 | PN ---
DATE: 03/21/2017 PSYCHIATRIC PROGRESS NOTE This is a late entry for 03/20/2017, covers elements not covered in my initial note of 03/20/2017. SUBJECTIVE: I met with the patient the evening of 03/20/2017. The patient slept 7-3/4 hours previous evening. He remains confused, but otherwise pleasant, ambulates in his walker was somewhat more agitated after supper. He is compliant with his medications. REVIEW OF SYSTEMS: Ambulation impaired, in walker. No CV, , pulmonary, eye, ENT system symptoms on review. He is fairly pleasant, interactive as I met with him smiling, but oblivious of his surroundings. MENTAL STATUS EXAM: Oriented to himself. Insight, judgment, recent and remote memory, attention, concentration, fund of knowledge poor, consistent with his diagnosis mentioned in my initial note. PLAN: Continue current psychotropics mentioned in my initial note. Review drug interactions. Risk/benefit ratio favors no further change with tentative discharge back to halfway later this week. MAN Colton DUNN MD DR: IDANIA/herlinda JOB#: [id number] / [id number]
[2017-03-22 06:10] VITALS: BP 150/79
[2017-03-22] MEDS ORDERED: MAG30ORA2 PO (06:15)
[2017-03-22] MEDS ORDERED: MAGN2400 PO (06:16)
[2017-03-22] MEDS ORDERED: METH29OI TP (06:17)
[2017-03-22 06:46] LABS: BASO # 0.2 x10^3/uL (0.0-0.2); BASO % 1 % (0-3); EOS # 0.2 x10^3/uL (0.0-0.7); EOS % 1 % (0-3); HEMATOCRIT 35.6 % (39.0-53.0); HEMOGLOBIN 11.7 g/dL (13.0-17.5); LYMPH # 2.6 x10^3/uL (1.0-4.8); LYMPH % 16 % (24-48); MEAN CORPUSCULAR HEMOGLOBIN 29 pg (25-35); MEAN CORPUSCULAR HGB CONC 33 g/dL (31-37); MEAN CORPUSCULAR VOLUME 88 fL (79-100); MONO # 1.1 x10^3/uL (0.0-1.1); MONO % 7 % (0-9); NEUT % 75 % (31-73); PLATELET COUNT 198 x10^3/uL (140-400); RED BLOOD COUNT 4.03 x10^6/uL (4.30-5.70); WHITE BLOOD COUNT 16.2 x10^3/uL (4.0-11.0)
[2017-03-22 06:49] LABS: ALBUMIN 3.1 g/dL (3.4-5.0); ALBUMIN/GLOBULIN RATIO 0.8 (1.0-1.7); CALCIUM 9.2 mg/dL (8.5-10.1); CREATININE 1.1 mg/dL (0.7-1.3); GFR 63.9; MAGNESIUM 2.4 mg/dL (1.8-2.4); POTASSIUM 4.3 mmol/L (3.5-5.1); TOTAL BILIRUBIN 0.5 mg/dL (0.2-1.0); TOTAL PROTEIN 6.9 g/dL (6.4-8.2)
[2017-03-22 07:56] LABS: % BANDS 2 % (0-9); % LYMPHS 13 % (24-48); % MONOS 8 % (0-10); % SEGS 77 % (35-66)
[2017-03-22 07:57] LABS: ANISOCYTOSIS SLIGHT; OVALOCYTES OCC; PLT ESTIMATE ADEQUATE (ADEQUATE)
[2017-03-22 07:58] LABS: POLYCHROMASIA SLIGHT
[2017-03-22 08:00] LABS: MICROCYTOSIS SLIGHT
[2017-03-22] MEDS: FAMOTIDINE 20 MG TABLET PO SCH (08:02)
[2017-03-22] MEDS: predniSONE 10 MG TABLET PO SCH (08:02)
[2017-03-22] MEDS: ASPIRIN 81 MG TAB.CHEW PO SCH (08:02)
[2017-03-22] MEDS: ALLOPURINOL 100 MG TABLET. PO SCH (08:02)
[2017-03-22] MEDS: CITALOPRAM 20 MG TABLET. PO SCH (08:02)
[2017-03-22] MEDS: QUEtiapine 50 MG TABLET. PO SCH (08:02)
[2017-03-22] MEDS: FERROUS SULFATE 325 MG TABLET. PO SCH (08:04)
[2017-03-22] MEDS: DRONABINOL 2.5 MG CAPSULE PO SCH (08:04)
[2017-03-22] MEDS: VITAMIN B COMPLEX CAPSULE. PO SCH (08:04)
--- NOTE | 2017-03-22 08:16 | NUR ---
[facility] Social Work Discharge Planning Form Patient Name NIK BERRY Admit Date: 02/27/17 DISCHARGE PLAN Discharge Destination: new to [facility] Transportation: girish Chavez, to peanut picker 03/22/17 at 9:30 DISCHARGE TO FACILITY Facility: [facility] Address: [address] [place] [address] Contact Name: PCP: at facility w/in 10-12 days of dc Psychiatrist: at facility w/in 10-12 days of dc orders for skilled admit provided
--- NOTE | 2017-03-22 10:38 | NUR ---
Behavior Intervention Response and Plan: BIRP Note: Behavior: Assumed Care of patient, patient located in Dining Room at shift change. Patient exhibited the following behavior Calm, Compliant, Cooperative. Brief assessment on rounds of vital signs, medication needs, lab studies, and pain. Treatment plan problems . Intervention: Patient assessed and the following interventions initiated safety checks 15 Minute Checks Cognitive Assessment , Cognitive Assessment , Medications. Response: After interactions and interventions patient responded in the following manner, Calm , Disorganized ,Cooperative. Continue to assess behaviors and condition will continue to monitor throughout the shift as needed. Patient educated on ADL's, and hand hygiene. Plan: Continue to monitor Master Treatment Plan for patient's progress toward short term goals of Decreased Agitation, Medication Compliance, intermission coordinator goals to return to previous living setting vs placement. Continue to assess patient for changes in above assessment. Monitor for medication needs, pain, and safety concerns. Hourly rounding performed to ensure safe environment.
--- NOTE | 2017-03-22 12:00 | NUR ---
Transition Record was faxed to follow-up provider with the following elements: Reason for admission, procedures, tests, principal diagnosis, pending studies, patient instructions, 01/01 contact information for unit, phone number to obtain pending test results, plan for follow-up care, physician follow-up, advanced directive information, and medication list with dose, duration and instructions. This information was included in the following documents: History and physical, lab results, study results, progress notes, social work planning form, DC instruction form, patient visit summary, and medication reconciliation form. Date & time record faxed: 03/22/17 @ 0930 Record faxed to: [facility] Record discussed with/ report given to: BERENICE Hardwick
--- NOTE | 2017-03-22 18:20 | PDOC ---
Exam Hector Demential Exam: Hector Note: Please also refer to the separate dictated note~for this date of service dictated separately.~Patient seen individually. Discussed the patient with Nursing staff reviewed the chart.~Reviewed interim history and current functioning. Reviewed vital signs,~Labs/ Radiology~and current medications noted below. Continue current treatment with the changes noted in the dictated addendum note Assessment: Vital Signs: Vital Signs Date Time Temp Pulse Resp B/P (MAP) Pulse Ox O2 Delivery O2 Flow Rate FiO2 03/22/17 06:10 97.8 69 20 150/79 (102) 93 03/19/17 16:14 Room Air I&O Intake and Output 03/23/17 07:00 Intake Total 200 ml Balance 200 ml Intake Oral 200 ml Labs: Laboratory Tests Test 03/22/17 06:23 White Blood Count 16.2 x10^3/uL (4.0-11.0) H Red Blood Count 4.03 x10^6/uL (4.30-5.70) L Hemoglobin 11.7 g/dL (13.0-17.5) L Hematocrit 35.6 % (39.0-53.0) L Mean Corpuscular Volume 88 fL (79-100) Mean Corpuscular Hemoglobin 29 pg (25-35) Mean Corpuscular Hemoglobin Concent 33 g/dL (31-37) Red Cell Distribution Width 15.0 % (11.5-14.5) H Platelet Count 198 x10^3/uL (140-400) Neutrophils (%) (Auto) 75 % (31-73) H Lymphocytes (%) (Auto) 16 % (24-48) L Monocytes (%) (Auto) 7 % (0-9) Eosinophils (%) (Auto) 1 % (0-3) Basophils (%) (Auto) 1 % (0-3) Neutrophils # (Auto) 12.0 x10^3uL (1.8-7.7) H Lymphocytes # (Auto) 2.6 x10^3/uL (1.0-4.8) Monocytes # (Auto) 1.1 x10^3/uL (0.0-1.1) Eosinophils # (Auto) 0.2 x10^3/uL (0.0-0.7) Basophils # (Auto) 0.2 x10^3/uL (0.0-0.2) Segmented Neutrophils % 77 % (35-66) H Band Neutrophils % 2 % (0-9) Lymphocytes % 13 % (24-48) L Monocytes % 8 % (0-10) Platelet Estimate Adequate (ADEQUATE) Large Platelets Occ Giant Platelets Occ Polychromasia Slight Anisocytosis Slight Microcytosis Slight Ovalocytes Occ Sodium Level 140 mmol/L (136-145) Potassium Level 4.3 mmol/L (3.5-5.1) Chloride Level 104 mmol/L (98-107) Carbon Dioxide Level 31 mmol/L (21-32) Anion Gap 5 (6-14) L Blood Urea Nitrogen 28 mg/dL (8-26) H Creatinine 1.1 mg/dL (0.7-1.3) Estimated GFR (Cockcroft-Gault) 63.9 BUN/Creatinine Ratio 25 (6-20) H Glucose Level 90 mg/dL (70-99) Calcium Level 9.2 mg/dL (8.5-10.1) Magnesium Level 2.4 mg/dL (1.8-2.4) Total Bilirubin 0.5 mg/dL (0.2-1.0) Aspartate Amino Transferase (AST) 22 U/L (15-37) Alanine Aminotransferase (ALT) 35 U/L (16-63) Alkaline Phosphatase 106 U/L (46-116) Total Protein 6.9 g/dL (6.4-8.2) Albumin 3.1 g/dL (3.4-5.0) L Albumin/Globulin Ratio 0.8 (1.0-1.7) L Current Medications: Meds: Current Medications Multi-Ingredient Ointment (Analgesic Drexel) 1 mike PRN QID PRN TP MUSCLE PAIN; Start 02/27/17 at 16:30; Stop 03/22/17 at 11:53; Status DC Al Hydroxide/Mg Hydroxide (Mylanta Plus Xs) 15 ml PRN AFTMEALHC PRN PO DYSPEPSIA; Start 02/27/17 at 16:30; Stop 03/22/17 at 11:53; Status DC Magnesium Hydroxide (Milk Of Magnesia) 2,400 mg PRN QHS PRN PO CONSTIPATION Last administered on 03/21/17t 11:57; Start 02/27/17 at 16:30; Stop 03/22/17 at 11:53; Status DC Mirtazapine (Remeron) 15 mg QHS PO Last administered on 03/21/17 20:44; Start 02/27/17 at 21:00; Stop 03/22/17 at 11:53; Status DC Olanzapine (ZyPREXA) 5 mg BID PO Last administered on 02/28/17 09:59; Start at 21:00; Stop 02/28/17 at 19:18; Status DC Meclizine HCl (Antivert) 25 mg PRN TID PRN PO NAUSEA/ VOMITTING; Start at 16:45; Stop 03/22/17 at 11:53; Status DC Melatonin 3 mg PRN QHS PRN PO INSOMNIA Last administered on 03/19/17 19:34; Start 02/27/17 at 16:45; Stop 03/22/17 at 11:53; Status DC Info (FLU VACCINE per PROTOCOL) 1 ea 1X ONCE MC ; Start 02/27/17 at 18:15; Stop 02/27/17 at 18:16; Status UNV Influenza Virus Vaccine Quadrival (Fluarix Quad [id number] Syringe) 0.5 ml ONCE ONCE VAX IM Last administered on 02/28/17 12:19; Start 02/28/17 at 12:00; Stop 02/28/17 at 12:01; Status DC Olanzapine (ZyPREXA ZYDIS) 2.5 mg PRN Q2HR PRN PO PSYCHOSIS Last administered on 03/18/17 06:26; Start 02/27/17 at 19:00; Stop 03/22/17 at 11:53; Status DC Acetaminophen (Tylenol) 325 mg PRN Q6HRS PRN PO PAIN / TEMP; Start 02/28/17 at 07:15; Stop 03/22/17 at 11:53; Status DC Allopurinol (Zyloprim) 100 mg DAILY PO Last administered on 03/22/17 08:02; Start 02/28/17 at 09:00; Stop 03/22/17 at 11:53; Status DC Aspirin (Children'S Aspirin) 81 mg DAILY PO Last administered on 03/22/17 08: 02; Start 02/28/17 at 09:00; Stop 03/22/17 at 11:53; Status DC Famotidine (Pepcid) 20 mg BID PO Last administered on 03/22/17 08:02; Start 02/28/17 at 09:00; Stop 03/22/17 at 11:53; Status DC Ferrous Sulfate (Feosol) 325 mg DAILYWLUN PO Last administered on 03/22/17 08 :04; Start 02/28/17 at 12:00; Stop 03/22/17 at 11:53; Status DC Hydralazine HCl (Apresoline) 10 mg PRN TID PRN PO HYPERTENSION, SEE COMMENTS; Start 02/28/17 at 07:15; Stop 03/22/17 at 11:53; Status DC Albuterol/ Ipratropium (Duoneb) 3 ml PRN Q4HRS PRN NEB SHORTNESS OF BREATH Last administered on 03/08/17 20:50; Start 02/28/17 at 07:15; Stop 03/22/17 at 11:53; Status DC Levofloxacin (Levaquin) 250 mg DAILY PO Last administered on 02/28/17 09:59; Start 02/28/17 at 09:00; Stop 02/28/17 at 13:16; Status DC Prednisone (Prednisone) 10 mg DAILY PO Last administered on 03/22/17 08:02; Start 02/28/17 at 09:00; Stop 03/22/17 at 11:53; Status DC Tramadol HCl (Ultram) 50 mg PRN Q6HRS PRN PO PAIN; Start 02/28/17 at 07:15; Stop 03/22/17 at 11:53; Status DC Vitamin B Complex 1 cap DAILYWLUN PO Last administered on 03/22/17 08:04; Start 02/28/17 at 12:00; Stop 03/22/17 at 11:53; Status DC Olanzapine (ZyPREXA) 2.5 mg BID PO Last administered on 03/02/17 08:46; Start 02/28/17 at 21:00; Stop 03/02/17 at 19:03; Status DC Sertraline HCl (Zoloft) 25 mg DAILY PO Last administered on 03/02/17 08:46; Start 03/01/17 at 09:00; Stop 03/02/17 at 19:03; Status DC Olanzapine (ZyPREXA) 2.5 mg HS PO Last administered on 03/04/17 20:26; Start 03/02/17 at 21:00; Stop 03/05/17 at 18:34; Status DC Citalopram Hydrobromide (CeleXA) 10 mg DAILY PO Last administered on 03/05/17 09:23; Start 03/03/17 at 09:00; Stop 03/05/17 at 10:00; Status DC Citalopram Hydrobromide (CeleXA) 20 mg DAILY PO Last administered on 08:02; Start 03/06/17 at 09:00; Stop 03/22/17 at 11:53; Status DC Dronabinol (Marinol) 2.5 mg DAILY PO Last administered on 03/22/17 08:04; Start 03/03/17 at 09:00; Stop 03/22/17 at 11:53; Status DC Quetiapine Fumarate (SEROquel) 12.5 mg 0900 PO Last administered on 03/07/17 09:50; Start 03/05/17 at 09:00; Stop 03/07/17 at 14:08; Status DC Quetiapine Fumarate (SEROquel) 12.5 mg BID@0900,1700 PO Last administered on 16:48; Start 03/07/17 at 17:00; Stop 03/07/17 at 19:18; Status DC Vitamin D (Vitamin D3) 50,000 unit WEEKLY PO Last administered on 03/21/17 08 :15; Start 03/07/17 at 18:00; Stop 03/22/17 at 11:53; Status DC Amoxicillin (Amoxil) 500 mg [id number] PO Last administered on 03/08/17 08:05; Start 03/07/17 at 21:00; Stop 03/08/17 at 13:45; Status DC Trazodone HCl (Desyrel) 50 mg PRN QHS PRN PO INSOMNIA, OCTOBER REPEAT X1; Start at 19:00; Stop 03/22/17 at 11:53; Status DC Quetiapine Fumarate (SEROquel) 25 mg TID@0900,1300,1700 PO Last administered on 03/09/17 17:25; Start 03/08/17 at 09:00; Stop 03/09/17 at 18:51; Status DC Amoxicillin (Amoxil) 500 mg [id number] PO Last administered on 03/15/17 13:01; Start 03/08/17 at 14:00; Stop 03/15/17 at 14:00; Status DC Quetiapine Fumarate (SEROquel) 37.5 mg TID@0900,1300,1700 PO Last administered on 03/16/17 17:33; Start 03/10/17 at 09:00; Stop 03/16/17 at 18:36; Status DC Bisacodyl (Dulcolax Supp) 10 mg PRN DAILY PRN NE CONSTIPATION; Start 03/15/17 at 07:45; Stop 03/22/17 at 11:53; Status DC Sodium Biphosphate/ Sodium Phosphate (Fleet Adult) 133 ml 1X ONCE NE Last administered on 03/15/17 09:28; Start 03/15/17 at 09:15; Stop 03/15/17 at 09:16 ; Status DC Sodium Biphosphate/ Sodium Phosphate (Fleet Adult) 133 ml PRN DAILY PRN NE CONSTIPATION; Start 03/16/17 at 09:00; Stop 03/22/17 at 11:54; Status DC Quetiapine Fumarate (SEROquel) 37.5 mg BID@1300,1700 PO Last administered on 16:46; Start 03/17/17 at 13:00; Stop 03/22/17 at 11:54; Status DC Quetiapine Fumarate (SEROquel) 50 mg DAILY PO Last administered on 03/22/17 08:02; Start 03/17/17 at 09:00; Stop 03/22/17 at 11:54; Status DC Active Scripts Active Reported Analgesic Drexel (Methyl Salicylate/Menthol) 28 Gm Oint...g. 1 Mike TP PRN QID PRN Milk Of Magnesia (Magnesium Hydroxide) 2,400 Mg/10 Ml Oral.susp 2,400 Mg PO PRN QHS PRN Trazodone Hcl 50 Mg Tablet 50 Mg PO PRN QHS PRN Seroquel (Quetiapine Fumarate) 50 Mg Tablet 50 Mg PO DAILY Seroquel (Quetiapine Fumarate) 25 Mg Tablet 37.5 Mg PO BID@1300,1700 Zyprexa Zydis (Olanzapine) 5 Mg Tab.rapdis 2.5 Mg PO PRN Q2HR PRN MDD 7.5mg Celexa (Citalopram Hydrobromide) 20 Mg Tablet 20 Mg PO DAILY Fleet Enema (Na Phos,M-B/Na Phos,Di-Ba) 133 Ml Enema 1 Each RC DAILY PRN Marinol (Dronabinol) 2.5 Mg Capsule 2.5 Mg PO DAILY D3-50 (Cholecalciferol (Vitamin D3)) 50,000 Unit Capsule 50,000 Units PO QWE Bisacodyl 10 Mg Supp.rect 10 Mg RC PRN DAILY PRN Tramadol Hcl (Tramadol HCl) 50 Mg Tablet 50 Mg PO PRN Q6HRS PRN Melatonin 3 Mg Tablet 3 Mg PO PRN QHS PRN Meclizine Hcl 25 Mg Tablet 25 Mg PO PRN TID PRN Hydralazine Hcl 10 Mg Tablet 10 Mg PO PRN TID PRN Duoneb 0.5-3(2.5) Mg/3 Ml (Albuterol/Ipratropium) 3 Ml Ampul.neb 3 Ml NEB PRN Q4HRS PRN Tylenol (Acetaminophen) 325 Mg Tablet 325 Mg PO PRN Q6HRS PRN B Complex (Vitamin B Complex) 1 Each Tablet 1 Tab PO DAILYWLUN Prednisone 10 Mg Tablet 10 Mg PO DAILY Mirtazapine 15 Mg Tablet 15 Mg PO QHS Ferrous Sulfate 325 Mg Tablet 325 Mg PO DAILYWLUN Famotidine 20 Mg Tablet 20 Mg PO BID Aspirin 81 Mg Tab.chew 81 Mg PO DAILY Allopurinol 100 Mg Tablet 100 Mg PO DAILY Diagnosis: Problems: (1) Impulse control disorder (2) Dementia in Alzheimer's disease with delusions (3) Dementia in Alzheimer's disease with depression (4) Dementia, vascular, with delusions (5) Dementia, vascular, with depression (6) Anxiety disorder AARON DUNN MD Mar 22, 2017 18:20
--- NOTE | 2017-03-23 21:07 | DS ---
DATE OF DISCHARGE: 03/22/2017 This late entry for date of service 03/22/2017 covers elements not covered in my initial note of 03/22/2017. REASON FOR ADMISSION: Please refer to the admission history for details. Briefly, the patient is an 83-year-old male referred to us from home on account of increasing agitation, confusion, aggression and psychotic symptoms, being exit seeking, combative. He had failed outpatient psychiatric interventions. Behaviors were deemed dangerous, unmanageable, had failed outpatient psychiatric treatment resulting in this referral. SIGNIFICANT FINDINGS AND CLINICAL COURSE: Following admission, the patient was seen daily individually by myself, followed medically per Dr. Park/Dr. Mckeon. He is quite labile, agitated. Ambulation impaired, in a wheelchair. Adjustments were made in his psychotropics carefully gradually and he seemed to respond to a combination of Remeron 15 mg at bedtime, melatonin 3 mg at bedtime, Zyprexa Zydis p.r.n., Celexa 10 mg a day, Seroquel 50 mg a day and 37.5 mg b.i.d., trazodone 50 mg at bedtime p.r.n., may repeat x 1. He remained confused, but agitation, mood lability, psychotic symptoms are much better prior to discharge. CONDITION ON DISCHARGE: Improved. REVIEW OF SYSTEMS: Ambulation impaired, in a wheelchair. No CV, , pulmonary, eye, ENT system symptoms on review. Reliability poor. MENTAL STATUS EXAM: Oriented to himself. Insight, judgment, recent and remote memory, attention, concentration, fund of knowledge poor, consistent with his diagnosis. FINAL DIAGNOSES: Major neurocognitive disorder, Alzheimer, vascular with depression, delusion, behavioral disturbance; anxiety disorder, unspecified; impulse control disorder, unspecified. Rest unchanged from admission. DISCHARGE MEDICATIONS: Please refer to the [facility]AD. DISCHARGE INSTRUCTIONS: Outpatient psychiatric and medical followup at the senior care. AARON DUNN MD DR: IDANIA/herlinda JOB#: [id number] / [id number]
--- NOTE | 2017-03-24 00:02 | PN ---
DATE: 03/21/2017 PSYCHIATRIC PROGRESS NOTE This late entry of 03/21/2017 covers elements not covered in my initial note of 03/21/2017. SUBJECTIVE: I met with the patient evening of 03/21/2017. The patient remains confused, pleasant, cooperative, less anxious. REVIEW OF SYSTEMS: Ambulation impaired, in a wheelchair. No CV, , pulmonary, eye, ENT system symptoms on review. Reliability poor. MENTAL STATUS EXAM: Oriented to himself. Insight, judgment, recent and remote memory, attention, concentration, fund of knowledge poor, consistent with his diagnosis mentioned in my initial note. PLAN: Continue current psychotropics mentioned in my initial note. Reviewed drug interactions. Risk/benefit ratio favors no further change. Transition to retirement in the next day or two. MAN Colton DUNN MD DR: IDANIA/herlinda JOB#: [id number] / [id number]
--- NOTE | 2017-03-26 12:37 | DS ---
DATE OF DISCHARGE: 03/19/2017 DISCHARGE SUMMARY/PSYCHIATRIC PROGRESS NOTE This is a late entry on 03/19/2017, covered the elements not covered in my initial note of 03/19/2017. REASON FOR ADMISSION: Please refer to the admission history for details. Briefly, the patient is an 83-year-old male referred to us from home on account of increasing confusion, agitation, aggression, exit seeking, combative. He is extremely psychotic, labile had failed outpatient psychiatric interventions. SIGNIFICANT FINDINGS AND CLINICAL COURSE: Following admission, the patient was seen daily individually by myself, followed medically per Dr. Park/Dr Mckeon. The patient is extremely confused, restless, anxious, agitated, and aggressive intermittently. He remained in a wheelchair, banging doors at times, running wheelchair over the rest patients. I met with the patient daily individually, followed medically per Dr. Park/Dr. Mckeon. Adjustments were made in his psychotropics and he seemed to respond gradually to a combination of Remeron 15 mg at bedtime, melatonin 3 mg at bedtime, Zyprexa p.r.n., Celexa 10 mg a day, Seroquel 37.5 mg b.i.d. 50 mg daily, trazodone 50 mg at bedtime p.r.n., may repeat x 1 for insomnia. Prior to discharge, 03/19/2017 I met with him individually. He is in his wheelchair. REVIEW OF SYSTEMS: No CV, , pulmonary, eye, ENT system symptoms on review. Gait unsteady. MENTAL STATUS EXAM: Oriented to himself. Insight, judgment, recent and remote memory, attention, concentration, fund of knowledge poor, consistent with his diagnosis and quite pleasant, smiling. LABORATORY DATA: Reviewed. FINAL DIAGNOSES: Major neurocognitive disorder, Alzheimer, vascular with depression, delusion, behavioral disturbance; anxiety disorder, unspecified; impulse control disorder, unspecified. Rest unchanged. PLAN: Discharge medications, please refer the MRAD. Outpatient psychiatric and medical followup at the half-way. Time for discharge day management greater than 30 minutes. MAN Colton DUNN MD DR: IDANIA/herlinda JOB#: [id number] / [id number]
== END 2017-03-22 11:53 | DRG 884 ==
LOC: ER 12:00 → GEROPSY 15:10
PROVIDERS: ADMIT Psychiatry & Neurology Psychiatry; ATTEND Psychiatry & Neurology Psychiatry
DX: F01.51 Vascular dementia, unspecified severity, with behavioral disturbance (principal); E44.0 Moderate protein-calorie malnutrition; F02.81 Dementia in other diseases classified elsewhere, unspecified severity, with behavioral disturbance; G30.9 Alzheimer's disease, unspecified; Z91.19 Patient's noncompliance with other medical treatment and regimen; Z68.1 Body mass index [BMI] 19.9 or less, adult; Z66 Do not resuscitate; E55.9 Vitamin D deficiency, unspecified; E61.1 Iron deficiency; E78.00 Pure hypercholesterolemia, unspecified; D72.829 Elevated white blood cell count, unspecified; F32.9 Major depressive disorder, single episode, unspecified; F41.9 Anxiety disorder, unspecified; F63.9 Impulse disorder, unspecified; I10 Essential (primary) hypertension; I25.10 Atherosclerotic heart disease of native coronary artery without angina pectoris; K21.9 Gastro-esophageal reflux disease without esophagitis; K59.00 Constipation, unspecified; M10.9 Gout, unspecified; Z60.2 Problems related to living alone; Z88.8 Allergy status to other drugs, medicaments and biological substances
CPT/HCPCS: 36415; 51701; 71010; 80053; 80061; 81001; 82306; 82607; 83036; 83540; 83550; 83735; 84436; 84443; 84480; 85007; 85025; 85027; 85651; 86592; 86593; 87086; 87186; 90686; 93005; 94640; J7512; J7620; Q0167; 92610; 99285-25